=== PATIENT | female | born 1935 | race Caucasian/White ===

== ENCOUNTER 2020-02-23 13:33 | Emergency (ER) | payer MEDICARE, OTHER, SELFPAY ==
[2020-02-23 13:37] VITALS: BP 147/76; PULSE 83; RESP 16; TEMP 36.5; O2SAT 97; BMI 19.5
--- NOTE | 2020-02-23 13:42 | XRR_ITS ---
PROCEDURE INFORMATION: Exam: XR Right Foot Complete Exam date and time: 02/23/2020 1:43 PM Age: 85 years old Clinical indication: Foot; Right; Patient HX: C/O rle pain w/o injury TECHNIQUE: Imaging protocol: XR Right foot. Views: 3 or more views. COMPARISON: No relevant prior studies available. FINDINGS: Bones/joints: No acute fracture evident. Chronic hallux valgus deformity. Soft tissues: Normal. XR/XR foot RT min 3V* [id number] IMPRESSION: No acute findings.
--- NOTE | 2020-02-23 13:45 | XRR_ITS ---
PROCEDURE INFORMATION: Exam: XR Right Ankle Exam date and time: 02/23/2020 1:46 PM Age: 85 years old Clinical indication: Ankle; Right; Patient HX: C/O rle pain w/o injury TECHNIQUE: Imaging protocol: XR Right ankle. Views: 1 or 2 views. COMPARISON: No relevant prior studies available. FINDINGS: Bones/joints: Normal. No fracture evident. Soft tissues: Normal. XR/XR ankle RT 2V [id number] IMPRESSION: No acute findings.
--- NOTE | 2020-02-23 13:45 | XRR_ITS ---
PROCEDURE INFORMATION: Exam: XR Right Tibia and Fibula Exam date and time: 02/23/2020 1:46 PM Age: 85 years old Clinical indication: Lower leg; Right; Patient HX: C/O rle pain w/o injury TECHNIQUE: Imaging protocol: XR Right tibia and fibula. Views: 2 views. COMPARISON: No relevant prior studies available. FINDINGS: Bones/joints: Normal. No fracture evident. Soft tissues: Arterial wall calcifications, chronic. XR/XR tibia fibula RT 2V [id number] IMPRESSION: No acute findings.
[2020-02-23 13:46] VITALS: RESP 17
--- NOTE | 2020-02-23 13:53 | ED_ITS ---
HPI - Extremity Problem General: Chief complaint: Extremity Problem,Nontraumatic Stated complaint: foot pain Time Seen by Provider: 02/23/20 13:39 History of Present Illness: HPI Narrative: Ms. Miller is a nice 85-year-old female but is very hard of hearing. She comes in complaining of pain along the outside of her right leg and ankle. The pain is focal to this area. She does not remember a specific injury. She denies any other complaints. Review of Systems General: Reports: ROS unobtainable due to medical condition (Patient extremely hard of hearing) PFSH ED PFSH: Social History Smoking and tobacco status: never smoked Physical Exam Const: COMMON NORMALS: no apparent distress, oriented x3, no limitations, heal thy appearing and well nourished EXAM LIMITATIONS: no altered mental status GENERAL APPEARANCE: cooperative, well kempt and well developed ORIENTATION/CONSCIOUSNESS: Yes awake HENMT: COMMON NORMALS: normocephalic, head/scalp atraumatic, hearing grossly normal bilaterally, external ears normal, EAC's normal, external nose normal and moist oral mucous membranes HEAD & SCALP: normal to inspection, normocephalic and atraumatic FACE & SINUS: normal facial exam and face symmetric NOSE: external nose normal and nares normal EXTERNAL EAR: Yes external ears normal EXTERNAL AUDITORY CANAL: EAC's normal MOUTH: oral and palatal mucosa normal and tongue normal Eye: COMMON NORMALS: PERRL, EOMs intact bilaterally, conjunctivae normal and no scleral icterus GENERAL EYE: normal appearance of both eyes and normal light reflex CONJUNCTIVA: Yes conjunctivae normal SCLERA: sclerae normal CORNEA: Yes corneas normal PUPIL: Yes PERRL DIRECT OPHTHALMOSCOPY: Yes normal light reflex Neck/C-Spine: COMMON NORMALS: full ROM, no lymphadenopathy, supple, no meningeal signs and no JVD GENERAL: Yes normal visual inspection and Yes trachea midline CERVICAL SPINE: Yes cervical ROM normal Chest: COMMONS NORMALS: inspection of chest normal and palpation of chest normal Resp: COMMON NORMALS: normal respiratory effort, no retractions, no use of accessory muscles and clear to auscultation bilaterally EFFORT & INSPECTION: Yes able to speak in complete sentences AUSCULTATION: clear to auscultation bilaterally Cardio: COMMON NORMALS: no JVD, regular rate, regular rhythm, S1 normal heart sound, S2 normal heart sound, no gallops, no clicks, no murmurs and no rub JUGULAR VENOUS DISTENTION: no JVD RATE: regular rate RHYTHM: regular rhythm HEART SOUNDS: S1 normal and S2 normal GI: COMMON NORMALS: soft to palpation, non-tender, no hepatosplenomegaly and no masses INSPECTION: Yes normal to inspection PALPATION: Yes soft and Yes no hepatosplenomegaly : COMMON NORMALS: Yes no CVA tenderness BLADDER/KIDNEY EXAM: Yes no CVA tenderness Back/Pelvis: COMMON NORMALS: no CVA tenderness, thoracic and lumbar spine normal to inspection, no thoracic nor lumbar tenderness and thoraco-lumbar ROM normal Extremity: COMMON NORMALS: normal to inspection, full ROM, normal capillary refill, no joint enlargement, no clubbing, cyanosis or edema and no calf tenderness Neuro: COMMON NORMALS: oriented x3, CN's II-XII intact bilaterally, moves all extremities, no focal motor deficits and no sensory deficits noted MENINGEAL SIGNS: Yes no meningeal signs Psych: COMMON NORMALS: mental status grossly normal, thought process normal, cooperative, affect normal, speech normal and activity/motor behavior normal APPEARANCE: Yes well kempt SPEECH: Yes normal speech THOUGHT PROCESS: normal thought process Skin: COMMON NORMALS: no rashes or lesions noted, skin turgor normal, no jaundice, no petechiae and no mottling GENERAL SKIN EXAM: no rashes or lesions noted and turgor normal Course Vital Signs: Vital signs: Vital Signs Temperature 97.7 F 02/23/20 13:37 Pulse Rate 83 02/23/20 13:37 Respiratory Rate 17 02/23/20 13:46 Blood Pressure 147/76 02/23/20 13:37 Pulse Oximetry 97 02/23/20 13:37 MDM - Extremity (Nontraumatic) MDM Narrative: Medical decision making narrative: I contacted the patient's daughter Ana María Miller who understands that her ultrasounds are unremarkable and her x-rays are normal. She agrees to try to help her use the walker at home and will take the pain medicine as I have prescribed as needed. If her pain persists she understands she will to follow-up with the orthopedic doctor. At this time on exam the patient's pain is located all along the lateral aspect of her right ankle. There is no associated erythema, swelling, warmth to the touch or other sign of deep infectious etiology. There is no sign of cellulitis, necrotizing fasciitis, gout or other acute findings. At this time we will discharge the patient home to be weightbearing as tolerated with the pain medications as I as discussed with her daughter. The patient does relate that her ankle feels better at this time after pain medication. Imaging Data^: Xray Ortho: My impression: Right tib-fib, ankle, foot -no acute fractures. US Vascular: Radiologist's impression: Ultrasound venous Doppler right lower extremity - negative for DVT Ultrasound arterial Doppler right lower extremity -see formal report, biphasic flow down to lower leg then monophasic flow present. Discharge Plan Discharge Patient Disposition: Home, Self-Care Clinical Impression: Acute right ankle pain Condition: Stable Prescriptions: [place] 5-325 mg tablet 1 tab PO Q6H PRN (Reason: pain) 5 Days Qty: 20 RF: 0 No Action levothyroxine 137 mcg Tablet 137 mcg PO DAILY RF: 0 duloxetine 60 mg Capsule,Delayed Release(Dr/Ec) 60 mg PO DAILY RF: 0 Tylenol Arthritis Pain 650 mg Tablet Extended Release 1,300 mg PO PRN RF: 0 lorazepam 0.5 mg tablet 0.5 mg PO DAILY PRN (Reason: unknown) RF: 0 Calcium 500 500 mg calcium (1,250 mg) Tablet,Chewable 500 mg PO DAILY RF: 0 Discharge Orders: Discharge Order (Routine); Ordered 02/23/20 Ordered By: Iwona Tran Referrals: Ewa Paul MD [Physician] - 1-3 days Real Ambriz DO [Primary Care Provider] - Discharge Diet: Advance as tolerated Discharge Activity: Use walker/crutches as instructed Patient Instructions: Arthralgia (ED) Activity Restrictions/Additional Instructions: Please return to the ER immediately for any of the signs or symptoms listed on your discharge instruction sheets, worsening/changing of your symptoms, you are not getting better as quickly as expected, or for ANY other cause or concerns. Do not bear weight on your ankle if it causes pain but use your walker to help you get around in your home. Take the pain medication as I have prescribed. Return to the ER for increased pain or for any other cause for concern. Coding Level of Care Code ED Needle Board Repairer for Zeferino Fwcy Exam Comprehensive
--- NOTE | 2020-02-23 14:27 | USR_ITS ---
PROCEDURE INFORMATION: Exam: US Duplex Right Lower Extremity Veins, Limited Exam date and time: 02/23/2020 2:28 PM Age: 85 years old Clinical indication: Pain; Leg, lower; Right TECHNIQUE: Imaging protocol: Real-time Duplex ultrasound of the Right Lower Extremity with 2-D de leon scale, color Doppler flow and spectral waveform analysis with image documentation. Limited exam was focused on the right lower extremity veins. COMPARISON: No relevant prior studies available. FINDINGS: Right deep veins: Unremarkable. The common femoral, femoral, proximal profunda femoral and popliteal veins are patent without thrombus. Normal Doppler waveforms. Normal compressibility and/or augmentation response. Right superficial veins: Unremarkable. Saphenofemoral junction is patent without thrombus. Soft tissues: Unremarkable. US/[place] [id number] IMPRESSION: No acute findings. No evidence of deep vein thrombosis.
--- NOTE | 2020-02-23 14:29 | USR_ITS ---
PROCEDURE INFORMATION: Exam: US Duplex Right Lower Extremity Arteries Or Arterial Bypass Grafts Exam date and time: 02/23/2020 2:43 PM Age: 85 years old Clinical indication: Pain; Leg, lower; Right TECHNIQUE: Imaging protocol: Right Real-time duplex scan of the arteries or arterial bypass grafts of the right lower extremity with 2-D de leon scale, color Doppler flow and spectral waveform analysis. Images documented and saved. COMPARISON: CR (LOW EXM, ) 02/23/2020 1:52 PM FINDINGS: Right common femoral artery: Mild diffuse plaque. No occlusion or significant stenosis. Biphasic waveform. Right superficial femoral artery: Mild diffuse plaque. No occlusion or significant stenosis. Biphasic waveform. Right popliteal artery: Mild diffuse plaque. No occlusion or significant stenosis. Biphasic waveform. Right calf/foot arteries: Diffuse plaque. Patent posterior tibial artery with monophasic waveform. Dorsalis pedis artery is patent with monophasic waveform. Unable to obtain NATHANAEL's. Soft tissues: Unremarkable. US/[place] [id number] IMPRESSION: 1.) Patent femoral and popliteal arteries with diffuse plaque and biphasic waveforms. 2.) Patent posterior tibial and dorsalis pedis arteries with monophasic waveforms.
[2020-02-23] MEDS: HYDROcodone-acetaminophen 5-325 mg Tablet 1 TAB PO (14:38)
[2020-02-23 16:15] VITALS: BP 146/82; PULSE 77; RESP 16; O2SAT 98
== END 2020-02-23 16:15 | disposition home or self-care (01) ==
PROVIDERS: Emergency Provider Emergency Medicine; Family Provider Internal Medicine; PCP Internal Medicine
DX: M25.571 Pain in right ankle and joints of right foot (principal); M79.604 Pain in right leg
CPT/HCPCS: 12345; 73590; 73600; 73630; 93926; 93971; 99282; 99283

== ENCOUNTER 2021-10-14 18:22 | Emergency (ER) | payer MEDICARE, OTHER, SELFPAY ==
[2021-10-14 18:32] VITALS: BP 112/61; PULSE 67; RESP 18; TEMP 36.6; O2SAT 99; BMI 21.9
--- NOTE | 2021-10-14 18:38 | ED_ITS ---
Documented by User: Khris Yoder MD 10/27/21 19:46 HPI - Fall General: Chief Complaint: Fall Stated Complaint: Fall x 2 Time Seen by Provider: 10/14/21 18:38 History of Present Illness: HPI Narrative: Ms. Miller is an 86-year-old lady with history of Alzheimer's, scoliosis, and hypothyroidism who presents to the emergency department due to fall with altered mental status. Patient reportedly fell last night under somewhat unclear circumstances, likely tripped however patient does not recall event. She immediately had some pain in her back however that is progressed. She also notes abdominal discomfort and decreased p.o. intake. Her symptoms are worse with movement and deep inspiration however do not go with rest. She was recently treated for a urinary tract infection with amoxicillin however felt that those symptoms had improved and she completed a course of antibiotics. Intensity of discomfort associated with pain is moderate. Course has remained largely the same. Patient's family member at bedside does endorse that she seems more confused than typical and has had difficulty with balance. No other infectious symptoms, specific changes in health, known exacerbating or alleviating factors identified. Review of Systems General: Reports: 10 or more systems reviewed and unremarkable except in HPI and below PFSH ED PFSH: Medical History (Updated 10/24/21 @ 04:57 by Nathan Eason MD) C1 cervical fracture Dementia Hypertension Hypothyroidism No pertinent family history Surgical History No pertinent past surgical history Social History Smoking and tobacco status: never smoked Physical Exam Narrative: EXAM NARRATIVE: GENERAL/CONSTITUTIONAL - chronically ill-appearing. Frail Eyes - PERRL, no conjunctival injection ENMT - no guido signs or raccoon eyes. Atraumatic external nose and ears. NECK - supple. trachea midline CARDIOVASCULAR - regular rate and rhythm. Peripheral pulses 2+ and equal RESPIRATORY - clear to auscultation bilaterally. CHEST WALL - tenderness on the left side to lateral compression ABDOMEN/GI - tenderness palpation in the periumbilical region. No evidence of remote peritonitis MSK - tenderness palpation of T and L-spine extremities without obvious deformity or tenderness to palpation SKIN - Warm, Dry NEURO - alert and appropriately oriented. No focal neurologic deficits. Moves all extremities equally. PSYCH - impaired memory Course ED course: - Patient was seen and evaluated by me at bedside - Patient placed on cardiac monitors, IV access obtained - Initial evaluation notable for no focal neurologic deficits. Impaired memory and cognition. There is a skin tear without active hemorrhage to the left elbow region. - Labs notable for leukocytosis, anemia. Metabolic panel notable for likely dehydration with low sodium and low chloride, AGUSTÍN present. IV fluids given. - Urinalysis concerning for urinary tract infection 1g rocephin ordered - Imaging notable for C1 fracture. No other significant traumatic injuries or acute findings. Patient placed in c-collar. - Upon serial reexamination after treatment the patient was similar. She remained neurologically intact - Based on patient history, evaluation, labs, and imaging as interpreted the most likely cause of the patient's condition is C1 fracture secondary to fall, Urinary tract infection with AGUSTÍN and leukocytosis. - Due to presence of C1 fracture the patient requires neurosurgical and trauma consultation which is not available at our facility. - Patient will be accepted by Dr. Kennedy at [facility] in [place] for ER to ER transfer for trauma neurosurgical evaluation. Patient will likely need admission secondary to AGUSTÍN and UTI regardless of trauma evaluation - Subsequent to acceptance the accepting facility called back requesting that neurosurgery evaluate images prior to acceptance. - Patient care handed off to overnight ED physician Dr. Pate pending disposition Vital Signs: Vital signs: Vital Signs Temperature 98.8 F 10/15/21 02:14 Pulse Rate 78 10/15/21 02:14 Respiratory Rate 17 10/15/21 02:14 Blood Pressure 121/78 10/15/21 02:14 Pulse Oximetry 98 10/15/21 02:14 MDM - Fall Medical Records: Attestation: I reviewed the patient's medical records. Lab Data: Attestation: I reviewed the patient's lab results. Labs: Lab Results 10/14/21 10/14/21 10/14/21 19:30 19:30 19:30 WBC 13.2 10^3/uL H 10 ^3/uL (4.0-10.0) RBC 3.60 10^6/uL L 10 ^6/uL (4.1-5.3) Hgb 10.3 g/dL L g/dL (11.5-15.3) Hct 32.4 % L % (37.0-47.0) MCV 90.0 fl fl (81-99) MCH 28.6 pg pg (28.0-34.0) MCHC 31.8 g/dL g/dL (30.0-36.0) RDW 15.0 % % (12.1-15.1) Plt Count 329 10^3/cmm 10^3 /cmm (130-400) MPV 9.7 fL fL (7.4-10.4) Neut % (Auto) 87.7 % % Lymph % (Auto) 2.9 % % [place] % (Auto) 6.4 % % Eos % (Auto) 1.4 % % Baso % (Auto) 0.3 % % Neut # (Auto) 11.60 10^3/uL H 1 0^3/uL (1.8-7.7) Lymph # (Auto) 0.4 10^3/uL L 10^ 3/uL (0.8-4.8) [place] # (Auto) 0.8 10^3/uL 10^3/ uL (0.2-0.9) Eos # (Auto) 0.2 10^3/uL 10^3/ uL (0.0-0.8) Baso # (Auto) 0.0 10^3/uL 10^3/ uL (0.0-0.1) Nucleated RBC % (a uto) 0 % % Nucleated RBCs # 0.0 /100WBC /100W BC Sodium 128 mmol/L L mmol /L (136-145) Potassium 4.0 mmol/L mmol/L (3.5-5.1) Chloride 92 mmol/L L mmol/ L (98-107) Carbon Dioxide 20 mmol/L L mmol/ L (22-29) Anion Gap 20.0 H (5-19) BUN 39 mg/dL H mg/dL (8-23) Creatinine 1.6 mg/dL H mg/dL (0.5-0.9) GFR Calculation Not Reportable Glucose 116 mg/dL H mg/dL (65-115) Calculated Osmolal ity 276 mOsm/kg L mOs m/kg (285-295) Calcium 8.2 mg/dL L mg/dL (8.5-10.5) Total Bilirubin 0.5 mg/dL mg/dL (0.15-1.2) AST 17 U/L U/L (0-32) ALT 10 U/L U/L (0-33) Alkaline Phosphata se 175 IU/L H IU/L (35-105) Total Protein 6.4 g/dL L g/dL (6.6-8.7) Albumin 3.3 g/dL L g/dL (3.5-5.2) Globulin 3.1 g/dL g/dL (1.3-4.6) TSH 7.47 uIU/mL H uIU /mL (0.27-4.20) Free T4 1.02 ng/dL ng/dL (0.82-1.77) Urine Color Urine Appearance Urine pH Ur Specific Gravit y Urine Protein Urine Glucose (UA) Urine Ketones Urine Blood Urine Nitrate Urine Bilirubin Urine Urobilinogen Ur Leukocyte Alesha ase Urine RBC Urine WBC Ur Squamous Epith Cells Amorphous Sediment Urine Bacteria 10/14/21 20:30 WBC RBC Hgb Hct MCV MCH MCHC RDW Plt Count MPV Neut % (Auto) Lymph % (Auto) [place] % (Auto) Eos % (Auto) Baso % (Auto) Neut # (Auto) Lymph # (Auto) [place] # (Auto) Eos # (Auto) Baso # (Auto) Nucleated RBC % (a uto) Nucleated RBCs # Sodium Potassium Chloride Carbon Dioxide Anion Gap BUN Creatinine GFR Calculation Glucose Calculated Osmolal ity Calcium Total Bilirubin AST ALT Alkaline Phosphata se Total Protein Albumin Globulin TSH Free T4 Urine Color Yellow (Yellow) Urine Appearance Hazy A (CLEAR) Urine pH 5 (5-7) Ur Specific Gravit y 1.025 (1.005-1.030) Urine Protein 1+ H (Negative) Urine Glucose (UA) Norm (Normal) Urine Ketones Negative (Negative) Urine Blood 3+ H (Negative) Urine Nitrate Negative (Negative) Urine Bilirubin 1+ H (Negative) Urine Urobilinogen 1 mg/dL H mg/dL (Negative) Ur Leukocyte Alesha ase 2+ H (Negative) Urine RBC Too numerous to c nt /hpf H /hpf (0-2) Urine WBC Too numerous to c nt /hpf H /hpf (0-5) Ur Squamous Epith Cells 0-4 /hpf H /hpf (0-5) Amorphous Sediment Not Reportable Urine Bacteria 3+ /hpf H /hpf (NONE) EKG Data^: EKG 1: Attestation: I personally reviewed and interpreted this EKG as follows: EKG interpretation date: 10/14/21 EKG interpretation time: 19:31 Interpretation: Twelve-lead EKG shows an irregular rhythm at a rate of 85. [place] interval 183, QRS duration 98, QTc 410. Normal axis. Interpretation: Sinus rhythm. Occasional PVCs. Discharge Plan Discharge Patient Disposition: Transfer to ED Clinical Impression: Fall, C1 cervical fracture, Acute UTI, AGUSTÍN (acute kidney injury), Leukocytosis Condition: Stable Prescriptions: No Action aspirin 325 mg Tablet 325 mg PO PRN RF: 0 acetaminophen 500 mg Tablet 500 - 1,000 mg PO Q4H PRN (Reason: Pain) RF: 0 levothyroxine 137 mcg Tablet 137 mcg PO DAILY Qty: 30 RF: 0 Referrals: Real Ambriz DO [Primary Care Provider] - Coding Level of Care Code ED Systems Test Technician for Chg Fwd Documented by User: Arlene Pate MD 10/15/21 01:37 HPI - Fall General: Chief Complaint: Fall Stated Complaint: Fall x 2 Time Seen by Provider: 10/14/21 18:38 PFSH ED PFSH: Medical History (Updated 10/24/21 @ 04:57 by Nathan Eason MD) C1 cervical fracture Dementia Hypertension Hypothyroidism No pertinent family history Surgical History No pertinent past surgical history Social History Smoking and tobacco status: never smoked Course Vital Signs: Vital signs: Vital Signs Temperature 98.8 F 10/15/21 02:14 Pulse Rate 78 10/15/21 02:14 Respiratory Rate 17 10/15/21 02:14 Blood Pressure 121/78 10/15/21 02:14 Pulse Oximetry 98 10/15/21 02:14 MDM - Fall MDM Narrative: Medical decision making narrative: Patient presents here with C1 fracture after a fall took patient over from Dr. Roa she also has some dehydration with acute kidney injury. Lab Data: Labs: Lab Results 10/14/21 10/14/21 10/14/21 19:30 19:30 19:30 WBC 13.2 10^3/uL H 10 ^3/uL (4.0-10.0) RBC 3.60 10^6/uL L 10 ^6/uL (4.1-5.3) Hgb 10.3 g/dL L g/dL (11.5-15.3) Hct 32.4 % L % (37.0-47.0) MCV 90.0 fl fl (81-99) MCH 28.6 pg pg (28.0-34.0) MCHC 31.8 g/dL g/dL (30.0-36.0) RDW 15.0 % % (12.1-15.1) Plt Count 329 10^3/cmm 10^3 /cmm (130-400) MPV 9.7 fL fL (7.4-10.4) Neut % (Auto) 87.7 % % Lymph % (Auto) 2.9 % % [place] % (Auto) 6.4 % % Eos % (Auto) 1.4 % % Baso % (Auto) 0.3 % % Neut # (Auto) 11.60 10^3/uL H 1 0^3/uL (1.8-7.7) Lymph # (Auto) 0.4 10^3/uL L 10^ 3/uL (0.8-4.8) [place] # (Auto) 0.8 10^3/uL 10^3/ uL (0.2-0.9) Eos # (Auto) 0.2 10^3/uL 10^3/ uL (0.0-0.8) Baso # (Auto) 0.0 10^3/uL 10^3/ uL (0.0-0.1) Nucleated RBC % (a uto) 0 % % Nucleated RBCs # 0.0 /100WBC /100W BC Sodium 128 mmol/L L mmol /L (136-145) Potassium 4.0 mmol/L mmol/L (3.5-5.1) Chloride 92 mmol/L L mmol/ L (98-107) Carbon Dioxide 20 mmol/L L mmol/ L (22-29) Anion Gap 20.0 H (5-19) BUN 39 mg/dL H mg/dL (8-23) Creatinine 1.6 mg/dL H mg/dL (0.5-0.9) GFR Calculation Not Reportable Glucose 116 mg/dL H mg/dL (65-115) Calculated Osmolal ity 276 mOsm/kg L mOs m/kg (285-295) Calcium 8.2 mg/dL L mg/dL (8.5-10.5) Total Bilirubin 0.5 mg/dL mg/dL (0.15-1.2) AST 17 U/L U/L (0-32) ALT 10 U/L U/L (0-33) Alkaline Phosphata se 175 IU/L H IU/L (35-105) Total Protein 6.4 g/dL L g/dL (6.6-8.7) Albumin 3.3 g/dL L g/dL (3.5-5.2) Globulin 3.1 g/dL g/dL (1.3-4.6) TSH 7.47 uIU/mL H uIU /mL (0.27-4.20) Free T4 1.02 ng/dL ng/dL (0.82-1.77) Urine Color Urine Appearance Urine pH Ur Specific Gravit y Urine Protein Urine Glucose (UA) Urine Ketones Urine Blood Urine Nitrate Urine Bilirubin Urine Urobilinogen Ur Leukocyte Alesha ase Urine RBC Urine WBC Ur Squamous Epith Cells Amorphous Sediment Urine Bacteria 10/14/21 20:30 WBC RBC Hgb Hct MCV MCH MCHC RDW Plt Count MPV Neut % (Auto) Lymph % (Auto) [place] % (Auto) Eos % (Auto) Baso % (Auto) Neut # (Auto) Lymph # (Auto) [place] # (Auto) Eos # (Auto) Baso # (Auto) Nucleated RBC % (a uto) Nucleated RBCs # Sodium Potassium Chloride Carbon Dioxide Anion Gap BUN Creatinine GFR Calculation Glucose Calculated Osmolal ity Calcium Total Bilirubin AST ALT Alkaline Phosphata se Total Protein Albumin Globulin TSH Free T4 Urine Color Yellow (Yellow) Urine Appearance Hazy A (CLEAR) Urine pH 5 (5-7) Ur Specific Gravit y 1.025 (1.005-1.030) Urine Protein 1+ H (Negative) Urine Glucose (UA) Norm (Normal) Urine Ketones Negative (Negative) Urine Blood 3+ H (Negative) Urine Nitrate Negative (Negative) Urine Bilirubin 1+ H (Negative) Urine Urobilinogen 1 mg/dL H mg/dL (Negative) Ur Leukocyte Alesha ase 2+ H (Negative) Urine RBC Too numerous to c nt /hpf H /hpf (0-2) Urine WBC Too numerous to c nt /hpf H /hpf (0-5) Ur Squamous Epith Cells 0-4 /hpf H /hpf (0-5) Amorphous Sediment Not Reportable Urine Bacteria 3+ /hpf H /hpf (NONE) Discharge Plan Discharge Patient Disposition: Transfer to ED Clinical Impression: Fall, C1 cervical fracture, Acute UTI, AGUSTÍN (acute kidney injury), Leukocytosis Condition: Stable Prescriptions: No Action aspirin 325 mg Tablet 325 mg PO PRN RF: 0 acetaminophen 500 mg Tablet 500 - 1,000 mg PO Q4H PRN (Reason: Pain) RF: 0 levothyroxine 137 mcg Tablet 137 mcg PO DAILY Qty: 30 RF: 0 Referrals: Real Ambriz DO [Primary Care Provider] - Coding Level of Care Code ED Systems Test Technician for Zeferino Isidro
--- NOTE | 2021-10-14 18:46 | CTR_ITS ---
PROCEDURE INFORMATION: Exam: CT Chest With Contrast; Diagnostic Exam date and time: 10/14/2021 6:46 PM Age: 86 years old Clinical indication: Abdominal pain; Chest wall pain; Additional info: Fall, AMS, back and rib pain, abdominal pain unable to eat TECHNIQUE: Imaging protocol: Diagnostic computed tomography of the chest with contrast. Radiation optimization: All CT scans at this facility use at least one of these dose optimization techniques: automated exposure control; mA and/or kV adjustment per patient size (includes targeted exams where dose is matched to clinical indication); or iterative reconstruction. Contrast material: VISI; Contrast volume: 75 ml; Contrast route: INTRAVENOUS (IV); COMPARISON: CT abdomen pelvis w con* [id number] 04/25/2019 7:45 PM RADIATION DOSE METRICS: Total DLP (mGy-cm): 988.87 FINDINGS: Lungs: Bilateral apical pulmonary plaque like scarring. No focal pulmonary injury. No focal pulmonary consolidation. Pleural spaces: Unremarkable. No pneumothorax. No pleural effusion. Heart: Unremarkable. No cardiomegaly. No pericardial effusion. Aorta: Large volume diffuse calcified atherosclerotic wall plaques throughout thoracic aorta. No injury. No dissection. No aneurysm. Lymph nodes: Unremarkable. No enlarged lymph nodes. Bones/joints: Partially visible surgical hardware fixating the proximal left humerus. No acute thoracic spine fractures. Redemonstration of T12, L1, L2 level vertebral compression fractures. No rib fractures. Sternum intact. Soft tissues: Unremarkable. PROCEDURE INFORMATION: Exam: CT Abdomen And Pelvis With Contrast Exam date and time: 10/14/2021 6:46 PM Age: 86 years old Clinical indication: Abdominal pain; Chest wall pain; Additional info: Fall, AMS, back and rib pain, abdominal pain unable to eat TECHNIQUE: Imaging protocol: Computed tomography of the abdomen and pelvis with contrast. Radiation optimization: All CT scans at this facility use at least one of these dose optimization techniques: automated exposure control; mA and/or kV adjustment per patient size (includes targeted exams where dose is matched to clinical indication); or iterative reconstruction. Contrast material: VISI; Contrast volume: 75 ml; Contrast route: INTRAVENOUS (IV); COMPARISON: CT abdomen pelvis w con* [id number] 04/25/2019 7:45 PM RADIATION DOSE METRICS: Total DLP (mGy-cm): 988.87 FINDINGS: Liver: Normal. No mass. Gallbladder and bile ducts: Dilated common bile duct measuring up to 9 mm distally. Slightly more prominent than prior. No significant intrahepatic biliary duct dilation. Pancreas: Atrophic pancreas. No focal pancreatic mass. The central area of the main pancreatic duct is dilated up to 7 mm. Previously 4-5 mm. Spleen: Normal. No splenomegaly. Adrenal glands: Normal. No mass. Kidneys and ureters: Normal. No hydronephrosis. Stomach and bowel: Unremarkable. No obstruction. No mucosal thickening. Appendix: Normal appendix. Intraperitoneal space: Unremarkable. No free air. No significant fluid collection. Vasculature: Diffuse atherosclerosis. Negative for abdominal aortic aneurysm. No vascular injury. No acute vascular occlusion. Patent stent in the origin of the right renal artery. Lymph nodes: Unremarkable. No enlarged lymph nodes. Urinary bladder: Unremarkable as visualized. Reproductive: Unremarkable as visualized. Bones/joints: Bones are demineralized. Redemonstration of prior compression fractures at T12, L1, L2 with no significant change in height loss from prior. Severe rightward convex mid lumbar spine scoliosis is unchanged from prior. No definite acute pelvic fractures. Pelvic ring alignment is unremarkable. Areas of cortical irregularity in small lucency are noted in the medial aspects of the bilateral superior pubic rami of uncertain chronicity and significance without displacement. Difficult to fully exclude subtle fractures. Soft tissues: Unremarkable. CT/CT chest abd pel w con* IMPRESSION: Negative for acute thoracic injury. IMPRESSION: Negative for acute abdominopelvic abnormality.
--- NOTE | 2021-10-14 18:46 | CTR_ITS ---
PROCEDURE INFORMATION: Exam: CT Head Without Contrast Exam date and time: 10/14/2021 6:46 PM Age: 86 years old Clinical indication: Injury or trauma; Fall; Blunt trauma (contusions or hematomas); Altered mental status/memory loss; Additional info: Fall, AMS TECHNIQUE: Imaging protocol: Computed tomography of the head without contrast. Radiation optimization: All CT scans at this facility use at least one of these dose optimization techniques: automated exposure control; mA and/or kV adjustment per patient size (includes targeted exams where dose is matched to clinical indication); or iterative reconstruction. COMPARISON: CT head wo con* [id number] 07/18/2019 8:44 AM RADIATION DOSE METRICS: Total DLP (mGy-cm): 842.57 FINDINGS: Brain: There is moderate cerebral atrophy. There is moderate diffuse heterogeneity of the white matter attenuation, consistent with chronic white matter ischemic changes. Negative for intracranial hemorrhage. Lam matter and white matter interfaces are preserved. No midline shift of the brain. Cerebral ventricles: No ventriculomegaly. Paranasal sinuses: Visualized sinuses are unremarkable. No fluid levels. Mastoid air cells: Visualized mastoid air cells are well aerated. Orbital cavity: Symmetric, unremarkable orbits. Vasculature: Intracranial atherosclerosis. Bones/joints: Unremarkable. No acute fracture. Soft tissues: Unremarkable. CT/CT head wo con* [id number] IMPRESSION: Negative for acute intracranial abnormality.
--- NOTE | 2021-10-14 18:46 | CTR_ITS ---
PROCEDURE INFORMATION: Exam: CT Cervical Spine Without Contrast Exam date and time: 10/14/2021 6:46 PM Age: 86 years old Clinical indication: Injury or trauma; Fall; Blunt trauma; Additional info: Fall, AMS TECHNIQUE: Imaging protocol: Computed tomography images of the cervical spine without contrast. Radiation optimization: All CT scans at this facility use at least one of these dose optimization techniques: automated exposure control; mA and/or kV adjustment per patient size (includes targeted exams where dose is matched to clinical indication); or iterative reconstruction. COMPARISON: [facility] Cervical Spine 2-3 views 04/24/2018 3:52 PM RADIATION DOSE METRICS: Total DLP (mGy-cm): 373.27 FINDINGS: Vertebrae: C1 arch fractures are present. There is a mildly displaced fracture in the anterior arch in the midline which extends slightly to the right. There is a 2nd fracture in the posterior arch of the right lateral aspect posterior to the right pedicle. Atlantoaxial alignment is unremarkable. Atlanto dens interval is unremarkable. Atlantooccipital joints have normal alignment. Mild C5-C6 retrolisthesis. The cervical spine demonstrates marked degenerative changes at multiple levels. Soft tissues: Unremarkable. Vasculature: There is large amount of calcified plaque in the bilateral carotid artery bulb regions. Lungs: Bilateral pulmonary apical plaques/scarring. CT/CT cervical spin wo con* [id number] IMPRESSION: Anterior and posterior arch fractures of C1 vertebrae.
--- NOTE | 2021-10-14 18:47 | XRR_ITS ---
PROCEDURE INFORMATION: Exam: XR Left Elbow Exam date and time: 10/14/2021 6:47 PM Age: 86 years old Clinical indication: Pain; Elbow; Left; Additional info: Fall, pain TECHNIQUE: Imaging protocol: XR Left elbow. Views: 1 or 2 views. COMPARISON: No relevant prior studies available. FINDINGS: Bones/joints: Minimal distal triceps tendon degenerative calcification. Soft tissues: Normal. XR/XR elbow LT 2V [id number] IMPRESSION: Negative for fracture or dislocation
--- NOTE | 2021-10-14 18:47 | ECG_ITS ---
[facility] Test Date: 2021-10-14 Pat Name: Adelaide Miller Department: Room: Gender: Female [employer] Assistant: : 1935 Requested By: Khris Yoder Order Number: [id number] Chang MD: Linda Chappell M.D. Measurements Intervals [place] Rate: 85 P: 59 NE: 183 QRS: 57 QRSD: 98 T: 65 QT: 368 QTc: 439 Interpretive Statements SINUS RHYTHM WITH FREQUENT ECTOPIC PREMATURE COMPLEXES INCOMPLETE RIGHT BUNDLE BRANCH BLOCK [90+ ms QRS DURATION, TERMINAL R IN V1/V2, 40+ ms S IN I/aVL/V4/V5/V6] Possible left atrial ABNORMAL RHYTHM ECG Compared to ECG 07/18/2019 08:31:01 Incomplete right bundle-branch block now present First degree AV block no longer present T-wave abnormality no longer present Electronically Signed On 10-14-2021 22:15:43 TRACK MANAGER by Linda Chappell M.D. [id number]
--- NOTE | 2021-10-14 18:48 | XRR_ITS ---
PROCEDURE INFORMATION: Exam: XR Left Shoulder Exam date and time: 10/14/2021 6:48 PM Age: 86 years old Clinical indication: Pain; Left; Prior surgery; Surgery date: 6+ months; Surgery type: Lt shoulder; Additional info: Fall, pain TECHNIQUE: Imaging protocol: XR Left shoulder. Views: 2 or more views. COMPARISON: CR XR chest 2V* [id number] 09/02/2021 12:58 PM FINDINGS: Bones/joints: Proximal humeral orthopedic plate seen in place. Soft tissues: Normal. XR/XR shoulder LT min 2V* [id number] IMPRESSION: Negative for fracture or dislocation.
[2021-10-14 19:08] VITALS: RESP 20; O2SAT 94
[2021-10-14] MEDS: morphine 4 mg/mL SDV 1 mL 2 MG IVP (19:08)
[2021-10-14 20:02] VITALS: BP 115/53; PULSE 75; RESP 18; TEMP 36.7; O2SAT 97
[2021-10-14 20:15] LABS: Basophils % 0.3 %; Eosinophils # 0.2 10^3/uL (0.0-0.8); Eosinophils % 1.4 %; Hematocrit 32.4 % (37.0-47.0); Hemoglobin 10.3 g/dL (11.5-15.3); Lymphocytes # 0.4 10^3/uL (0.8-4.8); Lymphocytes % 2.9 %; Mean Corpuscular HGB Conc 31.8 g/dL (30.0-36.0); Mean Corpuscular Hemoglobin 28.6 pg (28.0-34.0); Mean Platelet Volume 9.7 fL (7.4-10.4); Monocytes # 0.8 10^3/uL (0.2-0.9); Monocytes % 6.4 %; Neutrophils % 87.7 %; Nucleated Red Blood Cells % 0 %; Platelet Count 329 10^3/cmm (130-400); White Blood Count 13.2 10^3/uL (4.0-10.0)
[2021-10-14 20:50] LABS: Blood Urine 3+ (Negative); Glucose Urine UA Norm (Normal); Ketones Urine Negative (Negative); Protein Urine 1+ (Negative); Specific Gravity, Urine 1.025 (1.005-1.030); Urine Appearance Hazy (CLEAR); Urine Color Yellow (Yellow); pH Urine 5 (5-7)
[2021-10-14 20:51] LABS: Add Urine Microscopic? YES; Bilirubin Urine 1+ (Negative); Leukocyte Esterase Urine 2+ (Negative); Nitrate Urine Negative (Negative); Urobilinogen Urine 1 mg/dL (Negative)
[2021-10-14 20:52] LABS: Add Urine Culture? Yes; Bacteria Urine 3+ /hpf; RBC Urine TOO NUMEROUS TO CNT /hpf (0-2); Squamous Epithelial Cell Urine 0-4 /hpf (0-5); WBC Urine TOO NUMEROUS TO CNT /hpf (0-5)
[2021-10-14 21:07] LABS: Alanine Aminotransferase 10 U/L (0-33); Albumin Level 3.3 g/dL (3.5-5.2); Alkaline Phosphatase 175 IU/L (35-105); Aspartate Amino Transferase 17 U/L (0-32); Blood Urea Nitrogen 39 mg/dL (8-23); Calcium 8.2 mg/dL (8.5-10.5); Carbon Dioxide 20 mmol/L (22-29); Chloride 92 mmol/L (98-107); Globulin 3.1 g/dL (1.3-4.6); Glucose 116 mg/dL (65-115); Osmolality Calculated 276 mOsm/kg (285-295); Sodium 128 mmol/L (136-145); Thyroid Stimulating Hormone 7.47 uIU/mL (0.27-4.20); Total Bilirubin 0.5 mg/dL (0.15-1.2); Total Protein 6.4 g/dL (6.6-8.7)
[2021-10-14] MEDS: iodixanol 320 mg/mL 100mL Btl IV (21:34)
[2021-10-14 22:00] VITALS: BP 120/58; PULSE 73; RESP 16
[2021-10-14 22:11] LABS: Free T4 Free Thyroxine 1.02 ng/dL (0.82-1.77)
--- NOTE | 2021-10-14 22:40 | PC.NURSE ---
Mayda with [facility], called and asked that transfer be put on hold for now. they will be consulting Neuro surgery and have them contact the ED physician here for further. Dr Yoder was notified.
[2021-10-14] MEDS: sodium chloride 0.9% 1,000 ML 500 ML IV (23:12)
[2021-10-14] MEDS: cefTRIAXone 1,000 MG in sodium chloride 0.9% (plus) 50 ML 100 MG IV (23:13)
[2021-10-15 00:57] VITALS: BP 122/68; PULSE 79; RESP 19; TEMP 37.1; O2SAT 98
[2021-10-15 01:38] VITALS: RESP 17
[2021-10-15] MEDS: morphine 4 mg/mL SDV 1 mL IVP (01:38)
[2021-10-15 02:14] VITALS: BP 121/78; PULSE 78; RESP 17; TEMP 37.1; O2SAT 98
== END 2021-10-15 01:50 ==
PROVIDERS: Emergency Medicine; Emergency Provider Emergency Medicine; PCP Internal Medicine
DX: N39.0 Urinary tract infection, site not specified (principal); N17.9 Acute kidney failure, unspecified; D72.829 Elevated white blood cell count, unspecified; S12.000A Unspecified displaced fracture of first cervical vertebra, initial encounter for closed fracture; I10 Essential (primary) hypertension; G30.9 Alzheimer's disease, unspecified; F02.80 Dementia in other diseases classified elsewhere, unspecified severity, without behavioral disturbance, psychotic disturbance, mood disturbance, and anxiety; W19.XXXA Unspecified fall, initial encounter
CPT/HCPCS: 70450; 71260; 72125; 73030; 73070; 74177; 80053; 81001; 84439; 84443; 85025; 87040; 87077; 87086; 87186; 87205; 93005; 96361; 96365; 96375; 96376; 99285; J0696; J2270; J7030; Q9967

== ENCOUNTER 2021-10-23 20:58 | Inpatient (IN) | payer MEDICARE, OTHER, SELFPAY ==
[2021-10-23 21:18] VITALS: BP 174/78; PULSE 91; RESP 16; TEMP 37.2; O2SAT 97
--- NOTE | 2021-10-23 21:36 | ED_ITS ---
Documented by User: DENNISE Irby 10/24/21 01:19 HPI - Altered Mental Status General: Chief Complaint: Altered Mental Status Stated Complaint: Hallucinating Time Seen by Provider: 10/23/21 21:24 Source: family (daughter) Mode of arrival: wheelchair Limitations: no limitations History of Present Illness: HPI narrative: Patient is an 86-year-old female with a history of Alzheimer's, hypothyroidism, scoliosis presents to ED today along with her daughter for concerns of altered mental status. Daughter states her altered mental status initially began 2 weeks ago when she was seen here at our facility. She apparently had had a fall at that time to and was diagnosed with a C1 cervical fracture and was transferred to [place] (daughter belie ves she was also diagnosed with a UTI). Daughter states while there they stated her C1 fracture was chronic. She is not sure if they addressed the UTI while she was hospitalized. Daughter states they followed up with PCP at [facility] and was placed on Levaquin on Tuesday. Daughter states over the past 24 to 48 hours patient has become even more so confused. She no longer knows her own name. She does not recognize the daughter. She is actively hallucinating stating that she is hearing deaths of several individuals on the television. She is seeing panthers. Daughter states her mother has never been like this previously. Her Alzheimer's previously has presented with minor memory impairments. She has no previous history of hallucinations or psychosis. complaint: altered mental status Review of Systems General: Reports: ROS unobtainable due to mental status [facility] ED PFSH: Medical History (Updated 10/24/21 @ 04:57 by Nathan Eason MD) C1 cervical fracture Dementia Hypertension Hypothyroidism No pertinent family history Surgical History No pertinent past surgical history Social History Smoking and tobacco status: never smoked Physical Exam Const: COMMON NORMALS: alert EXAM LIMITATIONS: altered mental status GENERAL APPEARANCE: cooperative ORIENTATION/CONSCIOUSNESS: Yes awake and Yes confused HENMT: COMMON NORMALS: normocephalic and atraumatic HEAD & SCALP: normocephalic and atraumatic Resp: COMMON NORMALS: normal respiratory effort and clear to auscultation bilaterally AUSCULTATION: clear to auscultation bilaterally Cardio: COMMON NORMALS: regular rate and regular rhythm RATE: regular rate RHYTHM: regular rhythm GI: COMMON NORMALS: Normal to inspection, nondistended, normoactive bowel sounds present, Soft to palpation, non-tender, No hepatosplenomegaly present and no masses INSPECTION: Yes normal to inspection PALPATION: Yes Soft to palpation and Yes No hepatosplenomegaly present Extremity: COMMON NORMALS: normal to inspection Neuro: GEMA COMA SCALE: document GCS findings Bicknell coma scale eye opening: Spontaneous Gema coma scale verbal response: Confused Bicknell coma scale motor response: Obey commands Gema coma scale total score: 14 SENSORIUM/ORIENTATION: Yes alert Skin: COMMON NORMALS: no rashes or lesions noted GENERAL SKIN EXAM: no rashes or lesions noted Course Consultations: Consultation #1: Dr. Eason-accepts pt to obs Vital Signs: Vital signs: Vital Signs Temperature 99.2 F 10/24/21 19:37 Pulse Rate 62 10/24/21 19:37 Respiratory Rate 22 H 10/24/21 19:37 Blood Pressure 160/58 10/24/21 19:37 Pulse Oximetry 95 10/24/21 19:37 MDM - Altered Mental Status MDM Narrative: Medical decision making narrative: Patient is extremely altered on physical examination. She does not even know her own name. She does not recognize her daughter in the room. She is actively seeing things on her room curtain. Vital signs are non-concerning. Labs are overall fairly unremarkable. Potassium of 3.3. Creatinine of 1.4. Interestingly enough her TSH is 48. It was roughly 7 a few days ago when she was seen here prior to transfer. Daughter does not feel she can care for her mother at home as she is actively hallucinating and trying to elope from the residents. In addition she states she has not been eating or drinking or caring for herself-again very abnormal for her. AMS could be secondary to thyroid dysfunction, worsening Alzheimer's, levaquin use, UTI. Spoke to Dr. Knowles who recommends hospitalization. Spoke to Dr. Eason who will admit. Lab Data: Labs: Lab Results 10/23/21 10/23/21 10/23/21 22:00 22:00 22:00 WBC 11.9 10^3/uL H 10 ^3/uL (4.0-10.0) RBC 3.65 10^6/uL L 10 ^6/uL (4.1-5.3) Hgb 10.3 g/dL L g/dL (11.5-15.3) Hct 32.4 % L % (37.0-47.0) MCV 88.8 fl fl (81-99) MCH 28.2 pg pg (28.0-34.0) MCHC 31.8 g/dL g/dL (30.0-36.0) RDW 15.7 % H % (12.1-15.1) Plt Count 491 10^3/cmm H 10 ^3/cmm (130-400) MPV 8.9 fL fL (7.4-10.4) Neut % (Auto) 79.8 % % Lymph % (Auto) 7.1 % % Cecil % (Auto) 7.3 % % Eos % (Auto) 0.5 % % Baso % (Auto) 0.4 % % Neut # (Auto) 9.46 10^3/uL H 10 ^3/uL (1.8-7.7) Lymph # (Auto) 0.8 10^3/uL 10^3/ uL (0.8-4.8) Cecil # (Auto) 0.9 10^3/uL 10^3/ uL (0.2-0.9) Eos # (Auto) 0.1 10^3/uL 10^3/ uL (0.0-0.8) Baso # (Auto) 0.1 10^3/uL 10^3/ uL (0.0-0.1) Nucleated RBC % (a uto) 0 % % Nucleated RBCs # 0.0 /100WBC /100W BC Sodium 139 mmol/L mmol/L (136-145) Potassium 3.3 mmol/L L mmol /L (3.5-5.1) Chloride 101 mmol/L mmol/L (98-107) Carbon Dioxide 24 mmol/L mmol/L (22-29) Anion Gap 17.3 (5-19) BUN 23 mg/dL mg/dL (8-23) Creatinine 1.4 mg/dL H mg/dL (0.5-0.9) GFR Calculation Not Reportable Glucose 108 mg/dL mg/dL (65-115) Calculated Osmolal ity 292 mOsm/kg mOsm/ kg (285-295) Lactic Acid 1.4 mmol/L mmol/L (0.5-2.2) Calcium 8.1 mg/dL L mg/dL (8.5-10.5) Total Bilirubin 0.3 mg/dL mg/dL (0.15-1.2) AST 18 U/L U/L (0-32) ALT 12 U/L U/L (0-33) Alkaline Phosphata se 156 IU/L H IU/L (35-105) Total Protein 6.7 g/dL g/dL (6.6-8.7) Albumin 3.3 g/dL L g/dL (3.5-5.2) Globulin 3.4 g/dL g/dL (1.3-4.6) Procalcitonin TSH Free T4 Free T3 Urine Color Urine Appearance Urine pH Ur Specific Gravit y Urine Protein Urine Glucose (UA) Urine Ketones Urine Blood Urine Nitrate Urine Bilirubin Urine Urobilinogen Ur Leukocyte Alesha ase Urine RBC Urine WBC Ur Squamous Epith Cells Amorphous Sediment Urine Bacteria Hyaline Casts 10/23/21 10/23/21 10/23/21 22:00 22:00 22:35 WBC RBC Hgb Hct MCV MCH MCHC RDW Plt Count MPV Neut % (Auto) Lymph % (Auto) Cecil % (Auto) Eos % (Auto) Baso % (Auto) Neut # (Auto) Lymph # (Auto) Cecil # (Auto) Eos # (Auto) Baso # (Auto) Nucleated RBC % (a uto) Nucleated RBCs # Sodium Potassium Chloride Carbon Dioxide Anion Gap BUN Creatinine GFR Calculation Glucose Calculated Osmolal ity Lactic Acid Calcium Total Bilirubin AST ALT Alkaline Phosphata se Total Protein Albumin Globulin Procalcitonin TSH 48.20 uIU/mL H uI U/mL (0.27-4.20) Free T4 0.76 ng/dL L ng/d L (0.82-1.77) Free T3 0.7 PG/ML L PG/ML (2.0-4.4) Urine Color Yellow (Yellow) Urine Appearance Clear (CLEAR) Urine pH 6 (5-7) Ur Specific Gravit y 1.010 (1.005-1.030) Urine Protein Neg (Negative) Urine Glucose (UA) Norm (Normal) Urine Ketones 1+ H (Negative) Urine Blood 2+ H (Negative) Urine Nitrate Negative (Negative) Urine Bilirubin Neg (Negative) Urine Urobilinogen Norm mg/dL mg/dL (Negative) Ur Leukocyte Alesha ase Negative (Negative) Urine RBC 10-15 /hpf H /hpf (0-2) Urine WBC 15-25 /hpf H /hpf (0-5) Ur Squamous Epith Cells 0-4 /hpf H /hpf (0-5) Amorphous Sediment Not Reportable Urine Bacteria Trace /hpf /hpf (NONE) Hyaline Casts 0-4 /lpf H /lpf 10/24/21 10/24/21 06:34 06:34 WBC 10.0 10^3/uL 10^3 /uL (4.0-10.0) RBC 3.37 10^6/uL L 10 ^6/uL (4.1-5.3) Hgb 9.4 g/dL L g/dL (11.5-15.3) Hct 30.1 % L % (37.0-47.0) MCV 89.3 fl fl (81-99) MCH 27.9 pg L pg (28.0-34.0) MCHC 31.2 g/dL g/dL (30.0-36.0) RDW 15.5 % H % (12.1-15.1) Plt Count 391 10^3/cmm 10^3 /cmm (130-400) MPV 9.1 fL fL (7.4-10.4) Neut % (Auto) 76.8 % % Lymph % (Auto) 9.0 % % Cecil % (Auto) 8.4 % % Eos % (Auto) 0.8 % % Baso % (Auto) 0.3 % % Neut # (Auto) 7.68 10^3/uL 10^3 /uL (1.8-7.7) Lymph # (Auto) 0.9 10^3/uL 10^3/ uL (0.8-4.8) Cecil # (Auto) 0.8 10^3/uL 10^3/ uL (0.2-0.9) Eos # (Auto) 0.1 10^3/uL 10^3/ uL (0.0-0.8) Baso # (Auto) 0.0 10^3/uL 10^3/ uL (0.0-0.1) Nucleated RBC % (a uto) 0 % % Nucleated RBCs # 0.0 /100WBC /100W BC Sodium 137 mmol/L mmol/L (136-145) Potassium 3.3 mmol/L L mmol /L (3.5-5.1) Chloride 100 mmol/L mmol/L (98-107) Carbon Dioxide 25 mmol/L mmol/L (22-29) Anion Gap 15.3 (5-19) BUN 20 mg/dL mg/dL (8-23) Creatinine 1.3 mg/dL H mg/dL (0.5-0.9) GFR Calculation Not Reportable Glucose 96 mg/dL mg/dL (65-115) Calculated Osmolal ity 286 mOsm/kg mOsm/ kg (285-295) Lactic Acid Calcium 7.6 mg/dL L mg/dL (8.5-10.5) Total Bilirubin 0.2 mg/dL mg/dL (0.15-1.2) AST 15 U/L U/L (0-32) ALT 10 U/L U/L (0-33) Alkaline Phosphata se 139 IU/L H IU/L (35-105) Total Protein 6.1 g/dL L g/dL (6.6-8.7) Albumin 3.0 g/dL L g/dL (3.5-5.2) Globulin 3.1 g/dL g/dL (1.3-4.6) Procalcitonin 0.19 ng/mL ng/mL (0-0.5) TSH Free T4 Free T3 Urine Color Urine Appearance Urine pH Ur Specific Gravit y Urine Protein Urine Glucose (UA) Urine Ketones Urine Blood Urine Nitrate Urine Bilirubin Urine Urobilinogen Ur Leukocyte Alesha ase Urine RBC Urine WBC Ur Squamous Epith Cells Amorphous Sediment Urine Bacteria Hyaline Casts Imaging Data^: CT Head: Radiologist's impression: [facility] [address] [place] [address] CT Scan Report Signed Patient: Adelaide Miller Unit #: [id number] : 1935 Age/Sex: 86 / F ADM Date: 10/23/21 Loc: ER Room/Bed: Attending Dr: Ordering Provider/Ordering MD: Amy Cote Date of Service: 10/23/21 Procedure(s): CT head wo con* [id number] Accession Number(s): [id number] Report Number: [id number] PROCEDURE INFORMATION: Exam: CT Head Without Contrast Exam date and time: 10/23/2021 9:34 PM Age: 86 years old Clinical indication: Altered mental status/memory loss; Additional info: AMS TECHNIQUE: Imaging protocol: Computed tomography of the head without contrast. Radiation optimization: All CT scans at this facility use at least one of these dose optimization techniques: automated exposure control; mA and/or kV adjustment per patient size (includes targeted exams where dose is matched to clinical indication); or iterative reconstruction. COMPARISON: CT head wo con* [id number] 10/14/2021 9:25 PM RADIATION DOSE METRICS: Total DLP (mGy-cm): 796.72 FINDINGS: Brain: Mild atrophy and mild white matter chronic microvascular changes are noted. No hemorrhage or evidence of acute infarction. Cerebral ventricles: No ventriculomegaly. Paranasal sinuses: Visualized sinuses are unremarkable. No fluid levels. Mastoid air cells: Visualized mastoid air cells are well aerated. Bones/joints: Unremarkable. No acute fracture. Soft tissues: Unremarkable. CT/CT head wo con* [id number] IMPRESSION: No acute intracranial abnormality. Dictated By: Franklin Tinoco MD Signed By: Franklin Tinoco MD Signed Date/Time: 10/23/212211 DD/ 33 CXR: Radiologist's impression: [address] [id number] ReportSigned Patient: Adelaide Miller AUnit #: [id number]: 5Acct#:[id number]/Sex: 86 / FADM Date: 10/23/21Loc: ERRoom/Bed:Attending Dr: Ordering Provider/Ordering MD: Amy Cote Date of Service: 10/23/21 Procedure(s): XR chest 1V portable [id number] Accession Number(s): [id number] Report Number: [id number] PROCEDURE INFORMATION: Exam: XR Chest Exam date and time: 10/23/2021 9:34 PM Age: 86 years old Clinical indication: Other: Hallucinations; Additional info: AMS TECHNIQUE: Imaging protocol: XR of the chest. Views: 1 view. COMPARISON: CT chest abd pel w con* 10/14/2021 9:32 PM FINDINGS: Lungs: Biapical subpleural scarring is again noted. No acute airspace process is visualized. Pleural spaces: Unremarkable. No pleural effusion. No pneumothorax. Heart/Mediastinum: The heart is normal in size. The aorta is mildly calcified. Bones/joints: Orthopedic hardware is seen in the proximal left humerus. No acute fracture is visualized. XR/XR chest 1V portable [id number] IMPRESSION: No acute cardiopulmonary abnormality. Dictated By:Franklin Tinoco MDSigned By:Franklin Tinoco MDSigned Date/Time:10/23/212214DD/ 33 CT renal: Radiologist's impression: [address] [address] [address] Scan Report Signed Patient: Adelaide Miller Unit #: [id number] : 1935 Age/Sex: 86 / F ADM Date: 10/23/21 Loc: ER Room/Bed: Attending Dr: Ordering Provider/Ordering MD: Amy Cote Date of Service: 10/24/21 Procedure(s): CT kidney stone [id number] Accession Number(s): [id number] Report Number: [id number] PROCEDURE INFORMATION: Exam: CT Abdomen And Pelvis Without Contrast Exam date and time: 10/24/2021 12:17 AM Age: 86 years old Clinical indication: Abdominal pain; Patient HX: C/O back pain. Hematuria. ; Additional info: Back pain, AMS TECHNIQUE: Imaging protocol: Computed tomography of the abdomen and pelvis without contrast. Radiation optimization: All CT scans at this facility use at least one of these dose optimization techniques: automated exposure control; mA and/or kV adjustment per patient size (includes targeted exams where dose is matched to clinical indication); or iterative reconstruction. COMPARISON: CT chest abd pel w con* 10/14/2021 9:32 PM RADIATION DOSE METRICS: Total DLP (mGy-cm): 639.22 FINDINGS: Pleural spaces: Trace bilateral pleural fluid. Diaphragm: Large hiatal hernia. Liver: Normal. No mass. Gallbladder and bile ducts: Normal. No calcified stones. No ductal dilation. Pancreas: Normal. No ductal dilation. Spleen: Normal. No splenomegaly. Adrenal glands: Normal. No mass. Kidneys and ureters: Normal. No hydronephrosis. Stomach and bowel: Unremarkable. No obstruction. No mucosal thickening. Appendix: No evidence of appendicitis. Intraperitoneal space: Unremarkable. No free air. No significant fluid collection. Vasculature: Diffuse atherosclerosis. Negative for abdominal aortic aneurysm. Lymph nodes: Unremarkable. No enlarged lymph nodes. Urinary bladder: Bladder is fairly decompressed with a Feliciano catheter in place. No wall thickening or mass apparent. Reproductive: Hysterectomy. Bones/joints: Diffuse osseous demineralization changes. Vertebral body compression deformities of T12, L1, L2 unchanged in height loss. Severe rightward convex lumbar spine scoliosis is unchanged. Soft tissues: Unremarkable. CT/CT kidney stone [id number] IMPRESSION: 1. Negative for acute abdominopelvic pathology. 2. No cause of hematuria identified. Dictated By: Kwesi Gongora Signed By: Kwesi Gongora Signed Date/Time: 10/24/21115 DD/ Discharge Plan Discharge Patient Disposition: Placed in Observation Admit Provider: Nathan Eason Clinical Impression: Altered mental status, TSH elevation Coding Level of Care Code ED Sexual Abuse Counsellor for Chg Fwd Exam Comprehensive Documented by User: Cyril Knowles DO 10/24/21 19:58 HPI - Altered Mental Status General: Chief Complaint: Altered Mental Status Stated Complaint: Hallucinating Time Seen by Provider: 10/23/21 21:24 [facility] ED PFSH: Medical History (Updated 10/24/21 @ 04:57 by Nathan Esaon MD) C1 cervical fracture Dementia Hypertension Hypothyroidism No pertinent family history Surgical History No pertinent past surgical history Social History Smoking and tobacco status: never smoked Course Vital Signs: Vital signs: Vital Signs Temperature 99.2 F 10/24/21 19:37 Pulse Rate 62 10/24/21 19:37 Respiratory Rate 22 H 10/24/21 19:37 Blood Pressure 160/58 10/24/21 19:37 Pulse Oximetry 95 10/24/21 19:37 MDM - Altered Mental Status MDM Narrative: Medical decision making narrative: This patient was originally seen by Mrs. CoteCHRIS Jon. I agree with her history, evaluation, and treatment. Admitted to hospitalist Lab Data: Labs: Lab Results 10/23/21 10/23/21 10/23/21 22:00 22:00 22:00 WBC 11.9 10^3/uL H 10 ^3/uL (4.0-10.0) RBC 3.65 10^6/uL L 10 ^6/uL (4.1-5.3) Hgb 10.3 g/dL L g/dL (11.5-15.3) Hct 32.4 % L % (37.0-47.0) MCV 88.8 fl fl (81-99) MCH 28.2 pg pg (28.0-34.0) MCHC 31.8 g/dL g/dL (30.0-36.0) RDW 15.7 % H % (12.1-15.1) Plt Count 491 10^3/cmm H 10 ^3/cmm (130-400) MPV 8.9 fL fL (7.4-10.4) Neut % (Auto) 79.8 % % Lymph % (Auto) 7.1 % % Cecil % (Auto) 7.3 % % Eos % (Auto) 0.5 % % Baso % (Auto) 0.4 % % Neut # (Auto) 9.46 10^3/uL H 10 ^3/uL (1.8-7.7) Lymph # (Auto) 0.8 10^3/uL 10^3/ uL (0.8-4.8) Cecil # (Auto) 0.9 10^3/uL 10^3/ uL (0.2-0.9) Eos # (Auto) 0.1 10^3/uL 10^3/ uL (0.0-0.8) Baso # (Auto) 0.1 10^3/uL 10^3/ uL (0.0-0.1) Nucleated RBC % (a uto) 0 % % Nucleated RBCs # 0.0 /100WBC /100W BC Sodium 139 mmol/L mmol/L (136-145) Potassium 3.3 mmol/L L mmol /L (3.5-5.1) Chloride 101 mmol/L mmol/L (98-107) Carbon Dioxide 24 mmol/L mmol/L (22-29) Anion Gap 17.3 (5-19) BUN 23 mg/dL mg/dL (8-23) Creatinine 1.4 mg/dL H mg/dL (0.5-0.9) GFR Calculation Not Reportable Glucose 108 mg/dL mg/dL (65-115) Calculated Osmolal ity 292 mOsm/kg mOsm/ kg (285-295) Lactic Acid 1.4 mmol/L mmol/L (0.5-2.2) Calcium 8.1 mg/dL L mg/dL (8.5-10.5) Total Bilirubin 0.3 mg/dL mg/dL (0.15-1.2) AST 18 U/L U/L (0-32) ALT 12 U/L U/L (0-33) Alkaline Phosphata se 156 IU/L H IU/L (35-105) Total Protein 6.7 g/dL g/dL (6.6-8.7) Albumin 3.3 g/dL L g/dL (3.5-5.2) Globulin 3.4 g/dL g/dL (1.3-4.6) Procalcitonin TSH Free T4 Free T3 Urine Color Urine Appearance Urine pH Ur Specific Gravit y Urine Protein Urine Glucose (UA) Urine Ketones Urine Blood Urine Nitrate Urine Bilirubin Urine Urobilinogen Ur Leukocyte Alesha ase Urine RBC Urine WBC Ur Squamous Epith Cells Amorphous Sediment Urine Bacteria Hyaline Casts 10/23/21 10/23/21 10/23/21 22:00 22:00 22:35 WBC RBC Hgb Hct MCV MCH MCHC RDW Plt Count MPV Neut % (Auto) Lymph % (Auto) Cecil % (Auto) Eos % (Auto) Baso % (Auto) Neut # (Auto) Lymph # (Auto) Cecil # (Auto) Eos # (Auto) Baso # (Auto) Nucleated RBC % (a uto) Nucleated RBCs # Sodium Potassium Chloride Carbon Dioxide Anion Gap BUN Creatinine GFR Calculation Glucose Calculated Osmolal ity Lactic Acid Calcium Total Bilirubin AST ALT Alkaline Phosphata se Total Protein Albumin Globulin Procalcitonin TSH 48.20 uIU/mL H uI U/mL (0.27-4.20) Free T4 0.76 ng/dL L ng/d L (0.82-1.77) Free T3 0.7 PG/ML L PG/ML (2.0-4.4) Urine Color Yellow (Yellow) Urine Appearance Clear (CLEAR) Urine pH 6 (5-7) Ur Specific Gravit y 1.010 (1.005-1.030) Urine Protein Neg (Negative) Urine Glucose (UA) Norm (Normal) Urine Ketones 1+ H (Negative) Urine Blood 2+ H (Negative) Urine Nitrate Negative (Negative) Urine Bilirubin Neg (Negative) Urine Urobilinogen Norm mg/dL mg/dL (Negative) Ur Leukocyte Alesha ase Negative (Negative) Urine RBC 10-15 /hpf H /hpf (0-2) Urine WBC 15-25 /hpf H /hpf (0-5) Ur Squamous Epith Cells 0-4 /hpf H /hpf (0-5) Amorphous Sediment Not Reportable Urine Bacteria Trace /hpf /hpf (NONE) Hyaline Casts 0-4 /lpf H /lpf 10/24/21 10/24/21 06:34 06:34 WBC 10.0 10^3/uL 10^3 /uL (4.0-10.0) RBC 3.37 10^6/uL L 10 ^6/uL (4.1-5.3) Hgb 9.4 g/dL L g/dL (11.5-15.3) Hct 30.1 % L % (37.0-47.0) MCV 89.3 fl fl (81-99) MCH 27.9 pg L pg (28.0-34.0) MCHC 31.2 g/dL g/dL (30.0-36.0) RDW 15.5 % H % (12.1-15.1) Plt Count 391 10^3/cmm 10^3 /cmm (130-400) MPV 9.1 fL fL (7.4-10.4) Neut % (Auto) 76.8 % % Lymph % (Auto) 9.0 % % Cecil % (Auto) 8.4 % % Eos % (Auto) 0.8 % % Baso % (Auto) 0.3 % % Neut # (Auto) 7.68 10^3/uL 10^3 /uL (1.8-7.7) Lymph # (Auto) 0.9 10^3/uL 10^3/ uL (0.8-4.8) Cecil # (Auto) 0.8 10^3/uL 10^3/ uL (0.2-0.9) Eos # (Auto) 0.1 10^3/uL 10^3/ uL (0.0-0.8) Baso # (Auto) 0.0 10^3/uL 10^3/ uL (0.0-0.1) Nucleated RBC % (a uto) 0 % % Nucleated RBCs # 0.0 /100WBC /100W BC Sodium 137 mmol/L mmol/L (136-145) Potassium 3.3 mmol/L L mmol /L (3.5-5.1) Chloride 100 mmol/L mmol/L (98-107) Carbon Dioxide 25 mmol/L mmol/L (22-29) Anion Gap 15.3 (5-19) BUN 20 mg/dL mg/dL (8-23) Creatinine 1.3 mg/dL H mg/dL (0.5-0.9) GFR Calculation Not Reportable Glucose 96 mg/dL mg/dL (65-115) Calculated Osmolal ity 286 mOsm/kg mOsm/ kg (285-295) Lactic Acid Calcium 7.6 mg/dL L mg/dL (8.5-10.5) Total Bilirubin 0.2 mg/dL mg/dL (0.15-1.2) AST 15 U/L U/L (0-32) ALT 10 U/L U/L (0-33) Alkaline Phosphata se 139 IU/L H IU/L (35-105) Total Protein 6.1 g/dL L g/dL (6.6-8.7) Albumin 3.0 g/dL L g/dL (3.5-5.2) Globulin 3.1 g/dL g/dL (1.3-4.6) Procalcitonin 0.19 ng/mL ng/mL (0-0.5) TSH Free T4 Free T3 Urine Color Urine Appearance Urine pH Ur Specific Gravit y Urine Protein Urine Glucose (UA) Urine Ketones Urine Blood Urine Nitrate Urine Bilirubin Urine Urobilinogen Ur Leukocyte Alesha ase Urine RBC Urine WBC Ur Squamous Epith Cells Amorphous Sediment Urine Bacteria Hyaline Casts Discharge Plan Discharge Patient Disposition: Placed in Observation Admit Provider: Nathan Eason Clinical Impression: Altered mental status, TSH elevation Coding Level of Care Code ED Sexual Abuse Counsellor for Chg Fwd Exam Comprehensive
[2021-10-23 22:19] LABS: Basophils # 0.1 10^3/uL (0.0-0.1); Basophils % 0.4 %; Eosinophils # 0.1 10^3/uL (0.0-0.8); Eosinophils % 0.5 %; Hematocrit 32.4 % (37.0-47.0); Hemoglobin 10.3 g/dL (11.5-15.3); Lymphocytes # 0.8 10^3/uL (0.8-4.8); Lymphocytes % 7.1 %; Mean Corpuscular HGB Conc 31.8 g/dL (30.0-36.0); Mean Corpuscular Hemoglobin 28.2 pg (28.0-34.0); Mean Corpuscular Volume 88.8 fl (81-99); Mean Platelet Volume 8.9 fL (7.4-10.4); Monocytes # 0.9 10^3/uL (0.2-0.9); Monocytes % 7.3 %; Neutrophils # 9.46 10^3/uL (1.8-7.7); Neutrophils % 79.8 %; Nucleated Red Blood Cells % 0 %; Platelet Count 491 10^3/cmm (130-400); Red Blood Count 3.65 10^6/uL (4.1-5.3); Red Cell Distribution Width 15.7 % (12.1-15.1); White Blood Count 11.9 10^3/uL (4.0-10.0)
[2021-10-23 22:35] LABS: Alanine Aminotransferase 12 U/L (0-33); Albumin Level 3.3 g/dL (3.5-5.2); Alkaline Phosphatase 156 IU/L (35-105); Anion Gap 17.3 (5-19); Aspartate Amino Transferase 18 U/L (0-32); Blood Urea Nitrogen 23 mg/dL (8-23); Calcium 8.1 mg/dL (8.5-10.5); Carbon Dioxide 24 mmol/L (22-29); Chloride 101 mmol/L (98-107); Globulin 3.4 g/dL (1.3-4.6); Glucose 108 mg/dL (65-115); Osmolality Calculated 292 mOsm/kg (285-295); Potassium 3.3 mmol/L (3.5-5.1); Sodium 139 mmol/L (136-145); Total Bilirubin 0.3 mg/dL (0.15-1.2); Total Protein 6.7 g/dL (6.6-8.7)
[2021-10-23 22:36] LABS: Lactic Sepsis W/Reflex 1.4 mmol/L (0.5-2.2)
[2021-10-23 22:51] LABS: Add Urine Microscopic? YES; Bilirubin Urine Neg (Negative); Blood Urine 2+ (Negative); Glucose Urine UA Norm (Normal); Ketones Urine 1+ (Negative); Leukocyte Esterase Urine Negative (Negative); Nitrate Urine Negative (Negative); Protein Urine Neg (Negative); Urine Appearance Clear (CLEAR); Urine Color Yellow (Yellow); Urobilinogen Urine Norm (Negative); pH Urine 6 (5-7)
[2021-10-23 23:00] LABS: Add Urine Culture? Yes; Bacteria Urine TRACE /hpf; Hyaline Casts Urine 0-4 /lpf; Squamous Epithelial Cell Urine 0-4 /hpf (0-5); WBC Urine 15-25 /hpf (0-5)
--- NOTE | 2021-10-24 00:17 | CTR_ITS ---
PROCEDURE INFORMATION: Exam: CT Abdomen And Pelvis Without Contrast Exam date and time: 10/24/2021 12:17 AM Age: 86 years old Clinical indication: Abdominal pain; Patient HX: C/O back pain. Hematuria. ; Additional info: Back pain, AMS TECHNIQUE: Imaging protocol: Computed tomography of the abdomen and pelvis without contrast. Radiation optimization: All CT scans at this facility use at least one of these dose optimization techniques: automated exposure control; mA and/or kV adjustment per patient size (includes targeted exams where dose is matched to clinical indication); or iterative reconstruction. COMPARISON: CT chest abd pel w con* 10/14/2021 9:32 PM RADIATION DOSE METRICS: Total DLP (mGy-cm): 639.22 FINDINGS: Pleural spaces: Trace bilateral pleural fluid. Diaphragm: Large hiatal hernia. Liver: Normal. No mass. Gallbladder and bile ducts: Normal. No calcified stones. No ductal dilation. Pancreas: Normal. No ductal dilation. Spleen: Normal. No splenomegaly. Adrenal glands: Normal. No mass. Kidneys and ureters: Normal. No hydronephrosis. Stomach and bowel: Unremarkable. No obstruction. No mucosal thickening. Appendix: No evidence of appendicitis. Intraperitoneal space: Unremarkable. No free air. No significant fluid collection. Vasculature: Diffuse atherosclerosis. Negative for abdominal aortic aneurysm. Lymph nodes: Unremarkable. No enlarged lymph nodes. Urinary bladder: Bladder is fairly decompressed with a Feliciano catheter in place. No wall thickening or mass apparent. Reproductive: Hysterectomy. Bones/joints: Diffuse osseous demineralization changes. Vertebral body compression deformities of T12, L1, L2 unchanged in height loss. Severe rightward convex lumbar spine scoliosis is unchanged. Soft tissues: Unremarkable. CT/CT kidney stone [id number] IMPRESSION: 1. Negative for acute abdominopelvic pathology. 2. No cause of hematuria identified.
--- NOTE | 2021-10-24 00:42 | P.HP_ITS ---
Providers/Chief Complaint Admitting Physician: Nathan Eason Primary Care Provider: Real Ambriz DO Chief Complaint: Hallucinating History of Present Illness 86-year-old female with a past medical history significant for hypertension, hypothyroidism, Alzheimers, fall with C1 fracture on 10/14 and urinary tract infection who was brought to ER by daughter for evaluation of altered mental status. Patient had similar symptoms when she had presented on 10/14 during which time she was diagnosed with UTI however she was transferred to [facility] for work up of C1 fracture and was not initially started on antibiotics. She was seen outpatient post discharge and eventually started on levaquin. After initiation of oral levaquin patients has been increasingly confused. Noted to have hallucinations as well which is not typical for her with Alzheimer. Laboratory workup on arrival showed a WBC of 11.9, hemoglobin of 10.3, hematocrit of 32.4 and platelet count of 491. Sodium 139, potassium 3.3, chloride 101, bicarb 24, BUN 23 and creatinine of 1.4. Of note this was 1.6 on 10/14. TSH was elevated at 48.2. Free T4 of 0.76. Free T3 of 0.7. Urinalysis showed negative leukocyte esterase and nitrates however was noted to have 10 to 25 wbcs. Imaging studies included a CT abdomen pelvis which did not show any evidence of acute abnormality.Head CT did not show any evidence of acute in tracranial abnormality.Chest x-ray was also negative. Patient was given Rocephin 1 g IV x1 and potassium replacement. Review of Systems General: Reports: ROS unobtainable due to mental status Medications/Allergies Home Medications Medication Instructions Recorded Confirmed Last Taken Type acetaminophen [Tylenol Arthritis 1,300 mg PO PRN 02/23/20 02/23/20 02/23/20 History Pain] calcium carbonate [Calcium 500] 500 mg PO DAILY 02/23/20 02/23/20 Unknown History duloxetine 60 mg PO DAILY 02/23/20 02/23/20 Unknown History levothyroxine 137 mcg PO DAILY 02/23/20 02/23/20 02/23/20 History lorazepam 0.5 mg PO DAILY PRN 02/23/20 02/23/20 Unknown History Allergies Allergy/AdvReac Type Severity Reaction Status Date / Time No Known Allergies Allergy Verified 10/23/21 21:21 PFSH Acute PFSH: Medical History (Updated 10/24/21 @ 04:57 by Nathan Eason MD) C1 cervical fracture Dementia Hypertension Hypothyroidism No pertinent family history Surgical History No pertinent past surgical history Social History Smoking and tobacco status: never smoked Vitals/I&O/Wt Last Vital Signs Temp 98.9 F 10/23/21 21:18 Pulse 91 10/23/21 21:18 Resp 16 10/23/21 21:18 BP 174/78 10/23/21 21:18 Pulse Ox 97 10/23/21 21:18 10/23/21 10/23/21 10/24/21 14:59 22:59 06:59 Intake Total 50 / 50 Output Total 600 / 600 Balance -550 / -550 Weight last 48 hrs Weight 50.349 kg Weight 50.349 kg Physical Exam Narrative: EXAM NARRATIVE: General : Alert, awake, confused HEENT: Grossly unremarkable CVS: NSR Chest; Non labored respiration ABD;Soft NT,ND Ext : no edema Urinary Catheter Management^: Feliciano: Cath Placed During This Visit: yes Urinary Catheter Date of Insertion: 10/23/21 Urinary Catheter Time of Insertion: 22:36 Data : 10/23/21 22:00 10/23/21 22:00 Micro: Microbiology 10/23/21 22:00 Blood Culture - Preliminary Blood SPECIMEN COLLECTED 10/23/21 22:00 Blood Culture - Preliminary Blood SPECIMEN COLLECTED A&P Assessment and plan (1) Altered mental status: Status: Acute (2) TSH elevation: Status: Acute Additional A&P Information Altered mental status Underlying dementia Infectious vs drug induced vs progressing dementia Will d/c levaquin Head CT - No acute findings Escherichia Coli UTI/Bacteremia Noted on 10/14/2021 Not initially treated Repeat blood culture x 2 Rocephin 1g IV q24hr Discontinue levaquin CT abd/pelvis - No acute findings Acute kidney injury Creatinine 1.4 IVF at 75 cc/hr Monitor u/o Renal dosing of meds Hypokalemia K 3.3 Replaced in ER Repeat BMP in am Recent Fall with C1 Fracture Obtain records from [facility] TSH 48 Unclear if pt was taking thyroid replacement Resume Synthroid 137mcg PO daily Repeat Labs in 4-6 weeks Hypertension Verify home meds and resume DVT ppx Heparin Attestations Medical Necessity Statement*: Anticipate less than 2 midnight stay in hospital for eval and treatment Time Spent in Patient Care: Greater than 35 minutes (>than 50% of time spent in counselling and/or direct pt care on unit) . Coding Level of Care Code Acute Watch Dial Printer for Chg Fwd Diagnoses Altered mental status R41.82 TSH elevation R79.89
[2021-10-24 00:54] LABS: Free T4 Free Thyroxine 0.76 ng/dL (0.82-1.77); T3 Free 0.7 PG/ML (2.0-4.4)
[2021-10-24] MEDS: ropinirole 1 mg Tablet PO (01:15)
[2021-10-24] MEDS: cefTRIAXone 1,000 MG in sodium chloride 0.9% (plus) 50 ML 100 MG IV (01:19)
--- NOTE | 2021-10-24 02:14 | PC.NURSE ---
ADMIT NOTE Pt received to floor from ER at 0205. Changed into gown. Is alert but quite confused. Denies pain. Feliciano intact and draining well. IV PIID in place to left wrist area. Bed alarm on for pt safety
[2021-10-24 02:26] VITALS: BMI 20.9
[2021-10-24 04:39] VITALS: BP 148/76; PULSE 88; RESP 16; TEMP 36.9; O2SAT 95
[2021-10-24] MEDS: heparin 5,000 unit/mL INJ 1 mL 5000 UNIT SUBCUT ×3 (05:05→20:29)
[2021-10-24] MEDS: sodium chloride 0.9% 1,000 ML 75 ML IV ×2 (05:05→17:26)
[2021-10-24 07:04] VITALS: BP 161/83; PULSE 86; RESP 18; TEMP 36.9; O2SAT 96
[2021-10-24 07:16] LABS: Basophils % 0.3 %; Eosinophils # 0.1 10^3/uL (0.0-0.8); Eosinophils % 0.8 %; Hematocrit 30.1 % (37.0-47.0); Hemoglobin 9.4 g/dL (11.5-15.3); Lymphocytes # 0.9 10^3/uL (0.8-4.8); Mean Corpuscular HGB Conc 31.2 g/dL (30.0-36.0); Mean Corpuscular Hemoglobin 27.9 pg (28.0-34.0); Mean Corpuscular Volume 89.3 fl (81-99); Mean Platelet Volume 9.1 fL (7.4-10.4); Monocytes # 0.8 10^3/uL (0.2-0.9); Monocytes % 8.4 %; Neutrophils # 7.68 10^3/uL (1.8-7.7); Neutrophils % 76.8 %; Nucleated Red Blood Cells % 0 %; Platelet Count 391 10^3/cmm (130-400); Red Blood Count 3.37 10^6/uL (4.1-5.3); Red Cell Distribution Width 15.5 % (12.1-15.1)
[2021-10-24 07:34] LABS: Alanine Aminotransferase 10 U/L (0-33); Alkaline Phosphatase 139 IU/L (35-105); Anion Gap 15.3 (5-19); Aspartate Amino Transferase 15 U/L (0-32); Blood Urea Nitrogen 20 mg/dL (8-23); Calcium 7.6 mg/dL (8.5-10.5); Carbon Dioxide 25 mmol/L (22-29); Chloride 100 mmol/L (98-107); Globulin 3.1 g/dL (1.3-4.6); Glucose 96 mg/dL (65-115); Osmolality Calculated 286 mOsm/kg (285-295); Potassium 3.3 mmol/L (3.5-5.1); Sodium 137 mmol/L (136-145); Total Bilirubin 0.2 mg/dL (0.15-1.2); Total Protein 6.1 g/dL (6.6-8.7)
[2021-10-24 07:39] LABS: Procalcitonin 0.19 ng/mL (0-0.5)
--- NOTE | 2021-10-24 08:36 | PC.PHAR ---
pts daughter sherrie verified pts medications
[2021-10-24] MEDS: potassium chloride oral liq 20 mEq/15 mL UDC 40 MEQ PO (09:05)
[2021-10-24] MEDS: levothyroxine 137 mcg Tablet PO (09:05)
[2021-10-24 11:15] VITALS: BP 200/82; PULSE 84; RESP 18; TEMP 36.7; O2SAT 99
[2021-10-24 15:20] VITALS: BP 181/67; PULSE 90; RESP 18; TEMP 36.9; O2SAT 97
--- NOTE | 2021-10-24 16:12 | PM.PN ---
Subjective Subjective: Interval history: Seen this AM. Patient is confused. Not able to report any complaints either. No acute events overnight. Vitals/I&O/Wt Last Vital Signs Temp 98.4 F 10/24/21 15:20 Pulse 90 10/24/21 15:20 Resp 18 10/24/21 15:20 BP 181/67 10/24/21 15:20 Pulse Ox 97 10/24/21 15:20 10/24/21 10/24/21 10/24/21 06:59 14:59 22:59 Intake Total 50 / 50 240 / 240 Output Total 600 / 600 Balance -550 / -550 240 / 240 Weight last 48 hrs Weight 50.349 kg Weight 50.349 kg Physical Exam Narrative: EXAM NARRATIVE: General : Alert, awake, confused, frail appearing elderly female HEENT: Grossly unremarkable CVS: NSR, no gross murmers. Chest; Non labored respiration, clear to ausculation ABD;Soft NT,ND Ext : no edema Urinary Catheter Management^: Feliciano: Cath Placed During This Visit: yes Reason for Continuing Indwelling Catheter: Other Urinary Catheter Date of Insertion: 10/23/21 Urinary Catheter Time of Insertion: 22:36 Data : 10/24/21 06:34 10/24/21 06:34 Micro: Microbiology 10/23/21 22:00 Blood Culture - Preliminary Blood SPECIMEN COLLECTED 10/23/21 22:00 Blood Culture - Preliminary Blood SPECIMEN COLLECTED A&P Assessment and plan (1) Altered mental status: Status: Acute (2) TSH elevation: Status: Acute Additional A&P Information Altered mental status Underlying dementia Infectious vs drug induced vs progressing dementia Will d/c levaquin Head CT - No acute findings Escherichia Coli UTI/Bacteremia Noted on 10/14/2021 Not initially treated Repeat blood culture x 2 Rocephin 1g IV q24hr Discontinue levaquin CT abd/pelvis - No acute findings Acute kidney injury Creatinine 1.4 at admission. Today 1.3. IVF at 75 cc/hr Monitor u/o Renal dosing of meds Hypokalemia K 3.3 Replaced in ER Repeat BMP in am Recent Fall with C1 Fracture Obtain records from [facility] TSH 48 Unclear if pt was taking thyroid replacement Resume Synthroid 137mcg PO daily Repeat Labs in 4-6 weeks Hypertension Not on home BP meds from records. Will start amlodipine 10 daily. DVT ppx Heparin Attestations Medical Necessity Statement*: > 24 hour stay Coding Level of Care Code Acute Branch Service Representative for Chg Fwd Diagnoses Altered mental status R41.82 TSH elevation R79.89
[2021-10-24] MEDS: amlodipine 10 mg Tablet PO (17:25)
[2021-10-24] MEDS: ziprasidone 20 mg/mL SDV 10 MG IM (18:08)
[2021-10-24 19:37] VITALS: BP 160/58; PULSE 62; RESP 22; TEMP 37.3; O2SAT 95
[2021-10-24 23:54] VITALS: BP 143/73; PULSE 84; RESP 20; TEMP 37.2; O2SAT 96
[2021-10-25] MEDS: cefTRIAXone 1,000 MG in sodium chloride 0.9% (plus) 50 ML 100 MG IV (01:59)
[2021-10-25 04:00] VITALS: BP 149/71; PULSE 78; RESP 20; TEMP 37.3; O2SAT 95
[2021-10-25] MEDS: heparin 5,000 unit/mL INJ 1 mL 5000 UNIT SUBCUT ×3 (04:36→20:29)
[2021-10-25 05:38] LABS: Basophils % 0.4 %; Eosinophils # 0.1 10^3/uL (0.0-0.8); Eosinophils % 0.7 %; Hematocrit 36.5 % (37.0-47.0); Hemoglobin 11.4 g/dL (11.5-15.3); Lymphocytes % 8.8 %; Mean Corpuscular HGB Conc 31.2 g/dL (30.0-36.0); Mean Corpuscular Hemoglobin 28.1 pg (28.0-34.0); Mean Corpuscular Volume 90.1 fl (81-99); Neutrophils # 8.74 10^3/uL (1.8-7.7); Neutrophils % 77.5 %; Nucleated Red Blood Cells % 0 %; Platelet Count 436 10^3/cmm (130-400); Red Blood Count 4.05 10^6/uL (4.1-5.3); Red Cell Distribution Width 15.8 % (12.1-15.1); White Blood Count 11.3 10^3/uL (4.0-10.0)
[2021-10-25 06:13] LABS: Anion Gap 15.3 (5-19); Blood Urea Nitrogen 17 mg/dL (8-23); Calcium 8.2 mg/dL (8.5-10.5); Carbon Dioxide 26 mmol/L (22-29); Chloride 101 mmol/L (98-107); Glucose 105 mg/dL (65-115); Magnesium 1.9 mg/dL (1.7-2.3); Osmolality Calculated 290 mOsm/kg (285-295); Potassium 3.3 mmol/L (3.5-5.1); Sodium 139 mmol/L (136-145)
[2021-10-25 07:44] VITALS: BP 175/85; PULSE 85; RESP 18; TEMP 36.8; O2SAT 96
[2021-10-25] MEDS: sodium chloride 0.9% 1,000 ML 75 ML IV ×2 (07:55→20:28)
[2021-10-25] MEDS: levothyroxine 137 mcg Tablet PO (08:00)
[2021-10-25] MEDS: amlodipine 10 mg Tablet PO (08:00)
[2021-10-25 11:27] VITALS: BP 154/68; PULSE 92; RESP 17; TEMP 37; O2SAT 96
[2021-10-25] MEDS: potassium chloride oral liq 20 mEq/15 mL UDC 40 MEQ PO (12:36)
[2021-10-25 15:41] VITALS: BP 165/85; PULSE 91; RESP 17; TEMP 36.9; O2SAT 98
--- NOTE | 2021-10-25 15:41 | PC.CHAP ---
Pastoral Care Encounter/Spiritual Assessment Type of Contact [] Declined charge entry specialist visit [] Patient/Family/Request visit [] Outpatient visit [] Follow-up visit [] Physician referral [] Code/Alert [XX] Routine visit [] Staff referral [] Actively dying [] Patient sleeping [] Family support [] [] Out of room [] Palliative care [] [] Receiving care in room [] Pre-surgical visit [] Trauma [] Long length of stay [] ICU visit [XX] Other: daughter present; documentation is about visit with daughter Relational/Emotional Strength [] Patient feels connected with others/family/visitors/staff [XX] Distress [] Loneliness/isolation [] Abandonment Spirituality of Patient [] Person of Sury [] Attends Christianity of their Sury [XX] Believes in Prayer [XX] Reads Bible or Protestant materials [XX] There are Spiritual issues to be addressed Signal Tower Operator Interventions [XX] Prayer [XX] Active listening [XX] Non-anxious presence [] Spiritual/emotional support [] Crisis/trauma care [] Spiritual counseling [] Bereavement support [] Provided bereavement packet [XX] Provided Bible/devotional materials [] Provided toy/stuffed animal, coloring book to patient or family member [] Provided Communion [] Anointing/[place] [] Salvation [XX] Completed spiritual assessment [] Other: Impact on Illness or Injury [] Angry [] Fearful [] Anxious [] Often cries [] Exhaustion [] Unable to work [] Unable to attend jehovah's witness [] Unable to walk/stand [] Unable to read [] Unable to drive [] Unable to eat/drink [] Unable to sleep [] Unable to be with family [] Patient intubated [] Other: Summary: Pt is experiencing an altered mental state so visit was with pt's daughter who has lived with pt and taken care of her the past 2 years. The altered mental state has come on rapidly and daughter questions if is may be related to some medication pt was given a few weeks ago during a different hospitalization. Decisions are being made about nursing facility and hoping that it will be temporary. Signal Tower Operator provided anticipatory guidance for daughter re: her own need for care...that when caregiving for her mom ends (whether that is due to her mother's passing or placement in a nursing facility) that the daughter may experience lots of feelings and need support for herself. Her support system is primarily her daughters. Signal Tower Operator provided prayer and a Daily Bread. Time spent with patient: 25 mins
--- NOTE | 2021-10-25 16:56 | PM.PN ---
Subjective Subjective: Interval history: Seen this morning and again in the afternoon with daughter at bedside. Discussed with daughter her plan and current hospital stay management. Had a long discussion and daughter would like to take her to a jail and cannot take care of her at home. Patient is having sundowners and yesterday required Geodon IM x1 as she got combative with the nursing staff. She is still actively hallucinating. Unable to provide any history. Vitals/I&O/Wt Last Vital Signs Temp 98.5 F 10/25/21 15:41 Pulse 91 10/25/21 15:41 Resp 17 10/25/21 15:41 BP 165/85 10/25/21 15:41 Pulse Ox 98 10/25/21 15:41 10/25/21 10/25/21 10/25/21 06:59 14:59 22:59 Intake Total 1250 / 2656.25 480 / 480 Output Total 1400 / 2400 Balance -150 / 256.25 480 / 480 Weight last 48 hrs Weight 50.349 kg Weight 50.349 kg Physical Exam Narrative: EXAM NARRATIVE: General : Alert, awake, confused, frail appearing elderly female HEENT: Grossly unremarkable, EOMI CVS: NSR, no gross murmers. Chest; Non labored respiration, clear to ausculation ABD;Soft NT,ND Ext : no edema Neuro: No focal neurologic deficits can move all 4 extremities and talks very clearly. She is hallucinating however. Unable to follow any commands as she is very confused. Awake and alert however. Urinary Catheter Management^: Feliciano: Cath Placed During This Visit: yes Reason for Continuing Indwelling Catheter: Other Urinary Catheter Date of Insertion: 10/23/21 Urinary Catheter Time of Insertion: 22:36 Data : 10/25/21 04:13 10/25/21 04:13 Micro: Microbiology 10/23/21 22:35 Urine Culture - Preliminary Urine Catheterized 10/23/21 22:00 Blood Culture - Preliminary Blood NEGATIVE TO DATE 10/23/21 22:00 Blood Culture - Preliminary Blood NEGATIVE TO DATE A&P Assessment and plan (1) Altered mental status: Status: Acute (2) TSH elevation: Status: Acute Additional A&P Information Altered mental status Underlying dementia Infectious vs drug induced vs progressing dementia Will d/c levaquin Head CT - No acute findings Most likely her altered mental status is secondary to progressing dementia, hospital-acquired delirium for from her previous hospital stay versus hypothyroidism. Neurology follow-up recommended at discharge for management of Alzheimer's. Escherichia Coli UTI/Bacteremia Noted on 10/14/2021 Not initially treated Repeat blood culture x 2 negative to date so far, urine culture also not showing any growth. Urinalysis however was abnormal on admission. Is possible that she had antibiotics in her system and that is why urine culture is not accurate at this time. Rocephin 1g IV q24hr Discontinue levaquin CT abd/pelvis - No acute findings Will complete antibiotic course with her. Acute kidney injury Creatinine 1.4 at admission. Today 1.0. Resolving. IVF at 75 cc/hr Monitor u/o Renal dosing of meds Hypokalemia K 3.3 Replaced in ER Again 3.3 today. Will replete with oral potassium. Recent Fall with C1 Fracture Obtain records from [facility]. Records are not here yet. As per the daughter however the C1 fracture was chronic for her and no management was done at [facility]. Hypothyroidism TSH 48 Unclear if pt was taking thyroid replacement Resume Synthroid 137mcg PO daily Repeat Labs in 4-6 weeks Hypertension Not on home BP meds from records. Continue amlodipine 10 daily. DVT ppx Heparin Daughter updated in person and long discussion done with her in the room with nurse present at bedside. Total time 20 minutes. Attestations Medical Necessity Statement*: Greater than 24-hour stay. Pending placement. Also being managed for UTI at this time. Coding Level of Care Code Acute Cardiac Cath Lab Radiology Technologist for Zeferino Isidro Diagnoses Altered mental status R41.82 TSH elevation R79.89
[2021-10-25 20:00] VITALS: BP 139/72; PULSE 102; RESP 20; TEMP 37.3; O2SAT 90
[2021-10-25] MEDS: quetiapine 25 mg Tablet 12.5 MG PO (20:29)
[2021-10-25 23:27] VITALS: BP 164/82; PULSE 102; RESP 21; TEMP 37.4; O2SAT 95
[2021-10-26] MEDS: cefTRIAXone 1,000 MG in sodium chloride 0.9% (plus) 50 ML 100 MG IV (02:03)
[2021-10-26 03:48] VITALS: BP 161/87; PULSE 91; RESP 22; TEMP 37.4; O2SAT 96
[2021-10-26] MEDS: heparin 5,000 unit/mL INJ 1 mL 5000 UNIT SUBCUT ×3 (04:23→20:37)
[2021-10-26 06:12] LABS: Basophils # 0.1 10^3/uL (0.0-0.1); Basophils % 0.4 %; Eosinophils # 0.1 10^3/uL (0.0-0.8); Eosinophils % 0.5 %; Hematocrit 40.1 % (37.0-47.0); Hemoglobin 12.3 g/dL (11.5-15.3); Lymphocytes # 1.4 10^3/uL (0.8-4.8); Lymphocytes % 10.8 %; Mean Corpuscular HGB Conc 30.7 g/dL (30.0-36.0); Mean Corpuscular Hemoglobin 28.2 pg (28.0-34.0); Mean Platelet Volume 9.2 fL (7.4-10.4); Monocytes # 1.2 10^3/uL (0.2-0.9); Monocytes % 9.3 %; Neutrophils # 9.86 10^3/uL (1.8-7.7); Neutrophils % 76.8 %; Nucleated Red Blood Cells % 0 %; Platelet Count 472 10^3/cmm (130-400); Red Blood Count 4.36 10^6/uL (4.1-5.3); Red Cell Distribution Width 15.9 % (12.1-15.1); White Blood Count 12.8 10^3/uL (4.0-10.0)
[2021-10-26 06:33] LABS: Anion Gap 18.5 (5-19); Blood Urea Nitrogen 17 mg/dL (8-23); Calcium 8.2 mg/dL (8.5-10.5); Carbon Dioxide 24 mmol/L (22-29); Chloride 102 mmol/L (98-107); Glucose 106 mg/dL (65-115); Osmolality Calculated 294 mOsm/kg (285-295); Potassium 3.5 mmol/L (3.5-5.1); Sodium 141 mmol/L (136-145)
[2021-10-26 07:26] VITALS: BP 146/79; PULSE 120; RESP 16; TEMP 36.4; O2SAT 96
[2021-10-26] MEDS: levothyroxine 137 mcg Tablet PO (08:26)
[2021-10-26] MEDS: amlodipine 10 mg Tablet PO (08:26)
[2021-10-26] MEDS: sodium chloride 0.9% 1,000 ML 75 ML IV ×2 (10:55→23:48)
[2021-10-26 11:25] VITALS: BP 178/75; PULSE 86; RESP 16; TEMP 36.8; O2SAT 94
[2021-10-26 15:30] VITALS: BP 165/81; PULSE 102; RESP 16; TEMP 36.6; O2SAT 96
--- NOTE | 2021-10-26 15:49 | PM.PN ---
Subjective Subjective: Interval history: No significant changes since yesterday. The patient is awake but mainly unresponsive. No evidence of pain. No anxiety or agitation. Medications: Reviewed: Yes Medication Review Details: Generic Name Dose Route Start Last Admin Trade Name Katlin PRN Reason Stop Dose Admin Amlodipine Besylat e 10 mg 10/24/21 16:15 10/26/21 08:26 Amlodipine 10 Mg Tablet PO 10 mg DAILY ELIDA Administration Heparin Sodium (Po rcine) 5,000 unit 10/24/21 04:45 10/26/21 11:54 Heparin 5,000 Un it/Ml Inj 1 Ml SUBCUT 5,000 unit Q8H ELIDA Administration Sodium Chloride 1,000 mls @ 75 ml s/hr 10/24/21 04:45 10/26/21 10:55 Sodium Chloride 0.9% IV 75 mls/hr .[id number] ELIDA Administration Ceftriaxone Sodium 1,000 mg/ 50 mls @ 100 mls/ hr 10/25/21 02:00 10/26/21 02:45 Sodium Chloride IV Infused Q24H ELIAD Infusion Protocol Levothyroxine Sodi um 137 mcg 10/24/21 09:00 10/26/21 08:26 Levothyroxine 13 7 Mcg Tablet PO 137 mcg DAILY ELIDA Administration Quetiapine Fumarat e 12.5 mg 10/25/21 21:00 10/25/21 20:29 Quetiapine 25 Mg Tablet PO 12.5 mg BEDTIME ELIDA Administration Vitals/I&O/Wt Last Vital Signs Temp 97.9 F 10/26/21 15:30 Pulse 102 H 10/26/21 15:30 Resp 16 10/26/21 15:30 BP 165/81 10/26/21 15:30 Pulse Ox 96 10/26/21 15:30 10/26/21 10/26/21 10/26/21 06:59 14:59 22:59 Intake Total 250 / 2151.25 1120 / 1120 Output Total 1000 / 2800 1000 / 1000 875 / 1875 Balance -750 / -648.75 120 / 120 -875 / -755 Physical Exam Narrative: EXAM NARRATIVE: Awake, confused and disoriented. Averbal. No acute distress Moving all extremities. Does not follow instructions. Skin is warm and dry. Dry mucous membranes. Eyes PERRL, extraocular muscles are intact Neck no JVD. Lungs clear bilaterally. No respiratory distress Heart S1, S2, regular Abdomen soft, nontender, bowel sounds are present Extremities. Moves all extremities. No edema, cyanosis, calf tenderness bilaterally No facial asymmetry. Urinary Catheter Management^: Feliciano: Cath Placed During This Visit: yes Reason for Continuing Indwelling Catheter: Other Urinary Catheter Date of Insertion: 10/23/21 Urinary Catheter Time of Insertion: 22:36 Data : 10/26/21 04:48 10/26/21 04:48 Other Labs: Laboratory Results WBC 12.8 10^3/uL (4.0-10.0) H 10/26/21 04:48 RBC 4.36 10^6/uL (4.1-5.3) 10/26/21 04:48 Hgb 12.3 g/dL (11.5-15.3) 10/26/21 04:48 Hct 40.1 % (37.0-47.0) 10/26/21 04:48 MCV 92.0 fl (81-99) 10/26/21 04:48 MCH 28.2 pg (28.0-34.0) 10/26/21 04:48 MCHC 30.7 g/dL (30.0-36.0) 10/26/21 04:48 RDW 15.9 % (12.1-15.1) H 10/26/21 04:48 Plt Count 472 10^3/cmm (130-400) H 10/26/21 04:48 MPV 9.2 fL (7.4-10.4) 10/26/21 04:48 Neut % (Auto) 76.8 % 10/26/21 04:48 Lymph % (Auto) 10.8 % 10/26/21 04:48 Kimble % (Auto) 9.3 % 10/26/21 04:48 Eos % (Auto) 0.5 % 10/26/21 04:48 Baso % (Auto) 0.4 % 10/26/21 04:48 Neut # (Auto) 9.86 10^3/uL (1.8-7.7) H 10/26/21 04:48 Lymph # (Auto) 1.4 10^3/uL (0.8-4.8) 10/26/21 04:48 Kimble # (Auto) 1.2 10^3/uL (0.2-0.9) H 10/26/21 04:48 Eos # (Auto) 0.1 10^3/uL (0.0-0.8) 10/26/21 04:48 Baso # (Auto) 0.1 10^3/uL (0.0-0.1) 10/26/21 04:48 Nucleated RBC % (auto) 0 % 10/26/21 04:48 Nucleated RBCs # 0.0 /100WBC 10/26/21 04:48 Sodium 141 mmol/L (136-145) 10/26/21 04:48 Potassium 3.5 mmol/L (3.5-5.1) 10/26/21 04:48 Chloride 102 mmol/L (98-107) 10/26/21 04:48 Carbon Dioxide 24 mmol/L (22-29) 10/26/21 04:48 Anion Gap 18.5 (5-19) 10/26/21 04:48 BUN 17 mg/dL (8-23) 10/26/21 04:48 Creatinine 1.0 mg/dL (0.5-0.9) H 10/26/21 04:48 GFR Calculation Not Reportable 10/26/21 04:48 Glucose 106 mg/dL (65-115) 10/26/21 04:48 Calculated Osmolality 294 mOsm/kg (285-295) 10/26/21 04:48 Lactic Acid 1.4 mmol/L (0.5-2.2) 10/23/21 22:00 Calcium 8.2 mg/dL (8.5-10.5) L 10/26/21 04:48 Magnesium 2.0 mg/dL (1.7-2.3) 10/26/21 04:48 Total Bilirubin 0.2 mg/dL (0.15-1.2) 10/24/21 06:34 AST 15 U/L (0-32) 10/24/21 06:34 ALT 10 U/L (0-33) 10/24/21 06:34 Alkaline Phosphatase 139 IU/L (35-105) H 10/24/21 06:34 Total Protein 6.1 g/dL (6.6-8.7) L 10/24/21 06:34 Albumin 3.0 g/dL (3.5-5.2) L 10/24/21 06:34 Globulin 3.1 g/dL (1.3-4.6) 10/24/21 06:34 Procalcitonin 0.19 ng/mL (0-0.5) 10/24/21 06:34 TSH 48.20 uIU/mL (0.27-4.20) H 10/23/21 22:00 Free T4 0.76 ng/dL (0.82-1.77) L 10/23/21 22:00 Free T3 0.7 PG/ML (2.0-4.4) L 10/23/21 22:00 Urine Color Yellow (Yellow) 10/23/21 22:35 Urine Appearance Clear (CLEAR) 10/23/21 22:35 Urine pH 6 (5-7) 10/23/21 22:35 Ur Specific Saxon 1.010 (1.005-1.030) 10/23/21 22:35 Urine Protein Neg (Negative) 10/23/21 22:35 Urine Glucose (UA) Norm (Normal) 10/23/21 22:35 Urine Ketones 1+ (Negative) H 10/23/21 22:35 Urine Blood 2+ (Negative) H 10/23/21 22:35 Urine Nitrate Negative (Negative) 10/23/21 22:35 Urine Bilirubin Neg (Negative) 10/23/21 22:35 Urine Urobilinogen Norm mg/dL (Negative) 10/23/21 22:35 Ur Leukocyte Esterase Negative (Negative) 10/23/21 22:35 Urine RBC 10-15 /hpf (0-2) H 10/23/21 22:35 Urine WBC 15-25 /hpf (0-5) H 10/23/21 22:35 Ur Squamous Epith Cells 0-4 /hpf (0-5) H 10/23/21 22:35 Amorphous Sediment Not Reportable 10/23/21 22:35 Urine Bacteria Trace /hpf (NONE) 10/23/21 22:35 Hyaline Casts 0-4 /lpf H 10/23/21 22:35 Impressions Chest X-Ray 10/23/21 21:34 IMPRESSION: No acute cardiopulmonary abnormality. Head CT 10/23/21 21:34 IMPRESSION: No acute intracranial abnormality. Abdomen/Pelvis CT 10/24/21 00:17 IMPRESSION: 1. Negative for acute abdominopelvic pathology. 2. No cause of hematuria identified. Micro: Microbiology 10/23/21 22:35 Urine Culture - Final Urine Catheterized A&P Additional A&P Information Altered mental status. Probably multifactorial related to acute metabolic encephalopathy. Definitely UTI, hypothyroidism, and dehydration are contributing to worsening of her mental status. His baseline probably advanced dementia. We will continue gentle hydration. We will continue adjusted dose of Synthroid. We will continue management of UTI. Will discuss with the family regarding different options of maintaining her nutrition and hydration. Will order speech evaluation. Comfort care and hospice will need to be discussed as well. At this point her CODE STATUS is listed as full code. UTI. On Rocephin. Cultures are negative so far. Uncontrolled hypothyroidism probably due to not taking her medications. Continue adjusted dose of Synthroid Acute kidney injury probably secondary to dehydration secondary to decreased oral intake. Improved renal function with hydration. Continue monitoring. Hypokalemia. Will replace and monitor. DVT prophylaxis. On heparin. The plan of care was discussed with multidisciplinary team during morning rounds. Attestations Medical Necessity Statement*: We are continuing current plan of care Coding Level of Care Code Acute Computer Technologist for Zeferino Isidro
[2021-10-26] MEDS: potassium chloride premix 100 ML 50 MEQ IV (16:11)
[2021-10-26] MEDS: acetaminophen 325 mg Tablet 650 MG PO (17:21)
[2021-10-26 19:49] VITALS: BP 146/72; PULSE 95; RESP 16; TEMP 36.9; O2SAT 95
[2021-10-26] MEDS: quetiapine 25 mg Tablet 12.5 MG PO (20:37)
--- NOTE | 2021-10-26 23:44 | PC.NURSE ---
MN VS Is resting with eyes closed and appears asleep. Is usually talking to herself or having a conversation with noone in room. Daughter had told nurse that pt had not slept for days. Was not disturbed for VS at this time.
[2021-10-27] VITALS: BP 134/65; PULSE 86; RESP 17; TEMP 36.8; O2SAT 93
[2021-10-27] MEDS: cefTRIAXone 1,000 MG in sodium chloride 0.9% (plus) 50 ML 100 MG IV (01:21)
[2021-10-27] MEDS: heparin 5,000 unit/mL INJ 1 mL 5000 UNIT SUBCUT (04:05)
--- NOTE | 2021-10-27 05:26 | PC.NURSE ---
SHIFT SUMMARY Has rested better tonight and has appeared to sleep. When awake she is quite confused and hallucinate. Talks to herself and has conversations with people not in room. Has doll laying beside her in bed. Attempted to get OOB few times and gets legs between siderails. Bed alarm on for safety. IV infusing at 75ml/hr rate. Feliciano draining well. Has had no signs of pain.
[2021-10-27 06:03] LABS: Magnesium 1.9 mg/dL (1.7-2.3)
[2021-10-27 06:04] LABS: Albumin Level 2.8 g/dL (3.5-5.2); Anion Gap 15.5 (5-19); Blood Urea Nitrogen 16 mg/dL (8-23); Calcium 7.9 mg/dL (8.5-10.5); Carbon Dioxide 23 mmol/L (22-29); Chloride 105 mmol/L (98-107); Glucose 82 mg/dL (65-115); Phosphorus 2.8 mg/dL (2.5-4.5); Potassium 3.5 mmol/L (3.5-5.1); Sodium 140 mmol/L (136-145)
[2021-10-27 07:31] VITALS: BP 134/74; PULSE 72; RESP 16; TEMP 36.6; O2SAT 93
--- NOTE | 2021-10-27 10:51 | PC.SOCIAL ---
IMM Update Pg. 2 of IMM updated and reviewed with patient's daughter over the phone, who verbalized understanding. Copy provided at bedside.
--- NOTE | 2021-10-27 10:52 | PC.SLP ---
Attempted to see patient twice; she is unable to be awakened to participate in her evaluation. Nursing reported the patient had not slept for 3 days. Will continue to monitor and assessment patient when she is appropriate for evaluation.
[2021-10-27 11:21] VITALS: BP 142/70; PULSE 60; RESP 16; TEMP 36.4; O2SAT 92
--- NOTE | 2021-10-27 11:32 | P.DS_ITS ---
Discharge Providers Date of Admission: 10/24/21 17:26 Date of Discharge: October 27, 2021 Attending Provider at Admission: Nathan Eason Attending Provider at Discharge: Celestino Buchanan Primary Care Provider: Real Ambriz DO Diagnoses at Discharge Discharge Diagnosis (1) Altered mental status: Status: Acute (2) TSH elevation: Status: Acute Reason for Visit Reason for Visit: Hallucinating Hospital Course Hospital Course Discharge diagnosis and problem list Altered mental status. Probably multifactorial related to acute metabolic encephalopathy. UTI, hypothyroidism, and dehydration are contributing to worse ela of her mental status. His baseline probably advanced dementia. Her mental status improved with hydration. Received Rocephin for UTI. However cultures came back negative. Stopping Rocephin at discharge. Discussed with family patient's condition and outlook. Overall prognosis is not favorable due to advancing dementia. New complications are likely. The family understands. However they were hesitant with changing her CODE STATUS or with comfort/hospice care. The patient as of now remains full code. UTI. Cultures are negative. Stopping Rocephin. Uncontrolled hypothyroidism probably due to not taking her medications. Continue adjusted dose of Synthroid. TSH will need to be monitored regularly and the dose be adjusted. Acute kidney injury probably secondary to dehydration secondary to decreased oral intake. Improved renal function with hydration. Continue monitoring. Hypokalemia. Replaced. DVT prophylaxis. Received heparin. Physical Exam Narrative: EXAM NARRATIVE: Awake, confused and disoriented. Averbal. No acute distress Moving all extremities. Does not follow instructions. Skin is warm and dry. Moist mucous membranes. Eyes PERRL, extraocular muscles are intact Neck no JVD. Lungs clear bilaterally. No respiratory distress Heart S1, S2, regular Abdomen soft, nontender, bowel sounds are present Extremities. Moves all extremities. No edema, cyanosis, calf tenderness bilaterally No facial asymmetry. Urinary Catheter Management^: Feliciano: Cath Placed During This Visit: yes Reason for Continuing Indwelling Catheter: Other Urinary Catheter Date of Insertion: 10/23/21 Urinary Catheter Time of Insertion: 22:36 Discharge Data Data Completed and Pending: Completed Studies During Hospitalization Category Date Time Status CT head wo con* [id number] [id number] Urgent Cat Scan 10/23/21 21:[address] kidney stone [id number] Urgent Cat Scan 10/24/21 00:17 Completed XR chest 1V catarino ble [id number] Urgent Exams 10/23/21 21:34 Completed Pending at discharge Category Date Time Status Blood Culture Sta t Lab 10/23/21 22:00 Results COVID OZH [Bond virus PCR] Routine Lab 10/27/21 10:35 Received Labs from last 24 hours 10/27/21 10/27/21 10/27/21 10:35 04:42 04:42 Sodium 140 Potassium 3.5 Chloride 105 Carbon Dioxide 23 Anion Gap 15.5 BUN 16 Creatinine 0.9 GFR Calculation Not Reportable Glucose 82 Calcium 7.9 L Phosphorus 2.8 Magnesium 1.9 Albumin 2.8 L Coronavirus 229E ( PCR) Pending SARS-CoV-2 (PCR) Pending Vitals: Last Vital Signs Temp 97.6 F 10/27/21 11:21 Pulse 60 10/27/21 11:21 Resp 16 10/27/21 11:21 BP 142/70 10/27/21 11:21 Pulse Ox 92 10/27/21 11:21 Discharge Plan Discharge Patient Disposition: Xfer SNF Condition: Stable Prescriptions: New levothyroxine 137 mcg Tablet 137 mcg PO DAILY Qty: 30 RF: 0 Continued aspirin 325 mg Tablet 325 mg PO PRN RF: 0 acetaminophen 500 mg Tablet 500 - 1,000 mg PO Q4H PRN (Reason: Pain) RF: 0 Discontinued levothyroxine [Euthyrox] 75 mcg tablet 75 mcg PO QAM RF: 0 ibuprofen 200 mg Tablet 800 mg PO Q6H PRN (Reason: Pain) RF: 0 levofloxacin 750 mg tablet 750 mg PO DAILY RF: 0 duloxetine 30 mg capsule,delayed release(DR/EC) 30 mg PO QPM RF: 0 Leg Cramp Relief Capsule 1 cap PO PRN PRN (Reason: Pain) RF: 0 Discharge Orders: Discharge Order (Routine); Ordered 10/27/21 Ordered By: Celestino Buchanan Other Ambulatory Orders: Basic Metabolic Panel (Routine) Timeframe: 2 Weeks Facility: [facility] - Location: Lab - Main Lab Ordered By: Celestino Buchanan Thyroid Stimulating Hormone (Routine) Timeframe: 2 Weeks Facility: [facility] - Location: Lab - Main Lab Ordered By: Celestino Buchanan Referrals: Real Ambriz DO [Primary Care Provider] - Discharge Diet: Advance as tolerated Discharge Activity: Increase activity as tolerated Discharge Attestations Time Spent in Discharge Care*: greater than 30 min Quality Metrics Clinical Quality Measures During this hospital stay, did patient experience: None Coding Level of Care Code Acute Chg FW DC note Diagnoses Altered mental status R41.82 TSH elevation R79.89
[2021-10-27 14:02] VITALS: BP 142/70; PULSE 60; RESP 16; TEMP 36.4; O2SAT 92
[2021-10-29 09:33] LABS: Quest SARS-CoV-2 RNA NOT DETECTED (NOT DETECTED)
== END 2021-10-27 12:55 | disposition skilled nursing facility (03) | DRG 689 ==
LOC: ER 10-24 01:18 → MEDSURG 10-24 01:45
PROVIDERS: Internal Medicine; Admitting Provider Hospitalist; Emergency Provider Physician Assistant; PCP Internal Medicine; Visit Provider Internal Medicine
DX: N39.0 Urinary tract infection, site not specified (principal); G93.41 Metabolic encephalopathy; N17.9 Acute kidney failure, unspecified; E03.9 Hypothyroidism, unspecified; E86.0 Dehydration; E87.6 Hypokalemia; G30.9 Alzheimer's disease, unspecified; F02.80 Dementia in other diseases classified elsewhere, unspecified severity, without behavioral disturbance, psychotic disturbance, mood disturbance, and anxiety; I10 Essential (primary) hypertension; Z87.440 Personal history of urinary (tract) infections; Z91.81 History of falling
CPT/HCPCS: 36415; 51702; 70450; 71045; 74176; 80048; 80053; 80069; 81001; 83605; 83735; 84145; 84439; 84443; 84481; 85025; 87040; 87086; 87635; 96365; 96372; 97161; 97165; 97530; 97535; 99291; 99292; G0378; J0696; J1644; J3480; J3486; J7030

== ENCOUNTER 2023-04-01 02:42 | Inpatient (IN) | payer MEDICARE, MEDICAID, SELFPAY ==
[2023-04-01] VITALS (36 sets, daily range): BP systolic 109–227; BP diastolic 53–121; PULSE 59–102; RESP 12–22; TEMP 36.1–36.8; O2SAT 92–99; BMI 20.4
--- NOTE | 2023-04-01 02:43 | ED_ITS ---
HPI - Fall General: Chief Complaint: Fall Stated Complaint: FALL Time Seen by Provider: 04/01/23 02:43 Limitations: altered mental status History of Present Illness: Presents from senior care via EMS for unwitnessed fall. Apparently staff heard her fall. Reported to them right hip pain and has skin tear on the right arm however patient has baseline dementia and history significantly limited. Review of Systems General: Reports: ROS unobtainable due to mental status PFSH ED PFSH: Medical History C1 cervical fracture Closed hip fracture Dementia Displaced fracture of right femoral neck Fall Hypertension Hypothyroidism No pertinent family history Skin tear Urinary retention UTI (urinary tract infection) Surgical History No pertinent past surgical history Status post right hip replacement Social History Smoking and tobacco status: never smoked Physical Exam Const: COMMON NORMALS: alert GENERAL APPEARANCE: cooperative and well developed HENMT: COMMON NORMALS: normocephalic and atraumatic HEAD & SCALP: normocephalic and atraumatic THROAT: posterior oropharynx normal OTHER: No guido signs or raccoon eyes. No hemotympanum. No otorrhea or rhinorrhea. Jaw alignment normal. Dentition baseline. No obvious bony step-offs. No septal hematoma. No evidence of ocular entrapment. Eye: COMMON NORMALS: conjunctivae normal CONJUNCTIVA: Yes conjunctivae normal SCLERA: sclerae normal Neck/C-Spine: COMMON NORMALS: supple GENERAL: Yes trachea midline Resp: COMMON NORMALS: normal respiratory effort EFFORT & INSPECTION: Yes able to speak in complete sentences Cardio: COMMON NORMALS: regular rate and regular rhythm RATE: regular rate RHYTHM: regular rhythm GI: COMMON NORMALS: Soft to palpation PALPATION: Yes Soft to palpation, Yes Tenderness to palpation present (GI), No Guarding due to palpation present (GI) and No Rigid due to palpation Extremity: NARRATIVE EXTREMITY EXAM: R hip ttp with limited ROM, distal CMS intact, no open wounds GENERAL: Yes normal exam except as noted and No edema Neuro: COMMON NORMALS: moves all extremities SENSORIUM/ORIENTATION: Yes alert and Yes Orientation impaired Psych: MEMORY/COGNITION: Yes memory grossly impaired Course Vital Signs: Vital signs: Vital Signs Temperature 98.0 F 04/04/23 12:00 Pulse Rate 93 04/04/23 12:00 Respiratory Rate 17 04/04/23 12:00 Blood Pressure 134/58 04/04/23 12:00 Pulse Oximetry 95 04/04/23 12:00 Oxygen Delivery Me thod Room Air 04/04/23 12:00 MDM - Fall Medical Decision Making 88-year-old lady with history of dementia presenting due to fall. Head to toe exam performed. EKG notable for sinus rhythm with first-degree AV block, normal axis, no STEMI. Labs with no significant hematologic or metabolic abnormalities with exception of mildly elevated creatinine. Coags normal. Head and cervical spine CT head negative for acute pathology. Chest abdomen pelvis CT with cervical right femur fracture. Numerous incidental findings discussed with patient and family. Femur negative with exception of known fracture, no humerus fracture. Patient treated with analgesia. Orthopedic service consulted. The results of ED evaluation were discussed with the patient including plan for admission due to requirement for level of care not available if discharged to prevent significant worsening/deterioration. Patient agreeable with plan. Discussed with hospitalist service who was agreeable to admit patient. Lab Data 04/04/23 04:43 04/04/23 04:43 Radiology Impressions Cervical Spine CT 04/01/23 02:50 IMPRESSION: 1. 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 2. Healed partial union or nonunion of right paramedian anterior C1 arch fracture. Chest/Abdomen/Pelvis CT 04/01/23 02:50 IMPRESSION: 1. No evidence of injury to intrathoracic organs. 2. No acute fracture in the thorax. 3. A moderate-sized hiatal hernia. 4. Extensive atherosclerotic plaques throughout the thoracic aorta without aneurysm. IMPRESSION: 1. Mildly displaced high cervical fracture of the right femur. 2. Severe chronic compression fracture of T12 and moderate chronic compression fracture of L1 without significant central spinal canal stenosis. 3. Severe peripheral vascular disease with a patent stent at the origin of the right main renal artery. 4. Additional non emergent findings are stated in the body of the report. ADDENDUM: 04/01/23 0508 THIS REPORT CONTAINS FINDINGS THAT MAY BE CRITICAL TO PATIENT CARE. The findings were verbally communicated via telephone conference with Khris Yoder at 5:07 AM CDT on 04/01/2023. The findings were acknowledged and understood. Head CT 04/01/23 02:50 IMPRESSION: No acute intracranial findings. Hip/Pelvis X-Ray 04/01/23 02:50 IMPRESSION: High cervical fracture of the right femur with superior displacement of the major distal fragment. Humerus X-Ray 04/01/23 02:50 IMPRESSION: 1. No acute fracture or dislocation. 2. Soft tissue swelling/hematoma of the mid to proximal arm. Chest X-Ray 04/01/23 03:15 IMPRESSION: 1. No acute findings. 2. Mild pulmonary hyperinflation as seen in COPD. 3. Bilateral apical pleuroparenchymal scarring. 4. A moderate-sized hiatal hernia, better seen on the concomitant CT scan of the chest. Femur X-Ray 04/01/23 03:28 IMPRESSION: Displaced high cervical fracture of the right femur. Laboratory Results WBC 6.0 10^3/uL (4.0-10.0) 04/01/23 02:57 RBC 4.25 10^6/uL (4.1-5.3) 04/01/23 02:57 Hgb 11.8 g/dL (11.5-15.3) 04/01/23 02:57 Hct 38.1 % (37.0-47.0) 04/01/23 02:57 MCV 89.6 fl (81-99) 04/01/23 02:57 MCH 27.8 pg (28.0-34.0) L 04/01/23 02:57 MCHC 31.0 g/dL (30.0-36.0) 04/01/23 02:57 RDW 14.1 % (12.1-15.1) 04/01/23 02:57 Plt Count 239 10^3/cmm (130-400) 04/01/23 02:57 MPV 9.7 fL (7.4-10.4) 04/01/23 02:57 Neut % (Auto) 39.1 % 04/01/23 02:57 Lymph % (Auto) 38.0 % 04/01/23 02:57 [place] % (Auto) 11.9 % 04/01/23 02:57 Eos % (Auto) 9.0 % 04/01/23 02:57 Baso % (Auto) 0.7 % 04/01/23 02:57 Neut # (Auto) 2.34 10^3/uL (1.8-7.7) 04/01/23 02:57 Lymph # (Auto) 2.3 10^3/uL (0.8-4.8) 04/01/23 02:57 [place] # (Auto) 0.7 10^3/uL (0.2-0.9) 04/01/23 02:57 Eos # (Auto) 0.5 10^3/uL (0.0-0.8) 04/01/23 02:57 Baso # (Auto) 0.0 10^3/uL (0.0-0.1) 04/01/23 02:57 Nucleated RBC % (auto) 0 % 04/01/23 02:57 Nucleated RBCs # 0.0 /100WBC 04/01/23 02:57 PT 12.90 SECONDS (12.1-14.9) 04/01/23 02:57 INR 0.94 (0.8-1.2) 04/01/23 02:57 APTT 29.8 SECONDS (23.9-36.7) 04/01/23 02:57 Sodium 138 mmol/L (136-145) 04/01/23 02:57 Potassium 4.0 mmol/L (3.5-5.1) 04/01/23 02:57 Chloride 102 mmol/L (98-107) 04/01/23 02:57 Carbon Dioxide 24 mmol/L (22-29) 04/01/23 02:57 Anion Gap 16.0 (5-19) 04/01/23 02:57 BUN 33 mg/dL (8-23) H 04/01/23 02:57 Creatinine 1.3 mg/dL (0.5-0.9) H 04/01/23 02:57 GFR Calculation Not Reportable 04/01/23 02:57 Glucose 109 mg/dL (65-115) 04/01/23 02:57 Calculated Osmolality 294 mOsm/kg (285-295) 04/01/23 02:57 Calcium 9.1 mg/dL (8.5-10.5) 04/01/23 02:57 Total Bilirubin 0.2 mg/dL (0.15-1.2) 04/01/23 02:57 AST 22 U/L (0-32) 04/01/23 02:57 ALT 10 U/L (0-33) 04/01/23 02:57 Alkaline Phosphatase 92 U/L (35-105) 04/01/23 02:57 Total Protein 7.1 g/dL (6.6-8.7) 04/01/23 02:57 Albumin 4.0 g/dL (3.5-5.2) 04/01/23 02:57 Globulin 3.1 g/dL (1.3-4.6) 04/01/23 02:57 TSH 1.91 uIU/mL (0.27-4.20) 04/01/23 02:17 Blood Type A Positive 04/01/23 04:16 Rho(D) Type Positive 04/01/23 04:16 Antibody Screen Negative 04/01/23 04:16 Discharge Plan Discharge Patient Disposition: Admitted As Inpatient Admit Provider: Carole Arias Clinical Impression: Closed hip fracture, Fall, Skin tear Condition: Stable Coding Level of Care Code ED Community Relations Specialist for Zeferino Isidro
--- NOTE | 2023-04-01 02:50 | CTR_ITS ---
PROCEDURE INFORMATION: Exam: CT Head Without Contrast Exam date and time: 04/01/2023 3:41 AM Age: 88 years old Clinical indication: Injury or trauma; Blunt trauma (contusions or hematomas); Patient HX: Unwitnessed fall at detention. History of dementia. ; Additional info: Fall, AMS TECHNIQUE: Imaging protocol: Computed tomography of the head without contrast. Radiation optimization: All CT scans at this facility use at least one of these dose optimization techniques: automated exposure control; mA and/or kV adjustment per patient size (includes targeted exams where dose is matched to clinical indication); or iterative reconstruction. REPORTING DATA: Count of CT and Cardiac NM exams in prior 12 months: This patient has received 0 known CTs and 0 known cardiac nuclear medicine studies in the 12 months prior to the current study. COMPARISON: CT head wo con* [id number] 10/23/2021 9:43 PM RADIATION DOSE METRICS: Total DLP (mGy-cm): 1070.66 FINDINGS: Brain: Severe calcified intracranial atherosclerotic vessel disease. Mild to moderate cerebral atrophy and ischemic leukoencephalopathy. Cerebral ventricles: No ventriculomegaly. Paranasal sinuses: Visualized sinuses are unremarkable. No fluid levels. Mastoid air cells: Visualized mastoid air cells are well aerated. Bones/joints: Unremarkable. No acute fracture. Soft tissues: Unremarkable. CT/CT head wo con* [id number] IMPRESSION: No acute intracranial findings.
--- NOTE | 2023-04-01 02:50 | CTR_ITS ---
PROCEDURE INFORMATION: Exam: CT Chest With Contrast; Diagnostic Exam date and time: 04/01/2023 3:48 AM Age: 88 years old Clinical indication: Injury or trauma; Generalized; Blunt trauma (contusions or hematomas); Prior surgery; Surgery date: 6+ months; Surgery type: Left shoulder; Patient HX: Unwitnessed fall at senior living. ; Additional info: Fall, AMS TECHNIQUE: Imaging protocol: Diagnostic computed tomography of the chest with contrast. Radiation optimization: All CT scans at this facility use at least one of these dose optimization techniques: automated exposure control; mA and/or kV adjustment per patient size (includes targeted exams where dose is matched to clinical indication); or iterative reconstruction. Contrast material: OMNI 350; Contrast volume: 75 ml; Contrast route: INTRAVENOUS (IV); REPORTING DATA: Count of CT and Cardiac NM exams in prior 12 months: This patient has received 0 known CTs and 0 known cardiac nuclear medicine studies in the 12 months prior to the current study. COMPARISON: CT chest abd pel w con* 10/14/2021 9:32 PM RADIATION DOSE METRICS: Total DLP (mGy-cm): 460.7 FINDINGS: Lungs: There is no evidence of focal pulmonary consolidation. There are pleuroparenchymal scarring and bronchiectatic changes at the bilateral lung apices. There are mild bilateral dependent atelectatic changes of the lower lobes. Pleural spaces: Unremarkable. No pneumothorax. No pleural effusion. Heart: There are no pericardial fluid collections. Coronary arteries: There is moderate atherosclerotic calcification of the coronary arteries. Esophagus: No esophageal thickening. Mediastinal space: There are no enlarged mediastinal lymph nodes or masses. Lymph nodes: There are no enlarged hilar lymph nodes. Vasculature: There is no thoracic aortic aneurysm or dissection. The visualized central pulmonary arteries appear unremarkable. There are extensive atherosclerotic calcifications scattered throughout the thoracic aorta. There is no evidence of pulmonary embolus in the large central and segmental pulmonary arteries. Evaluation of the smaller peripheral branches is limited by motion artifact and technical factors. Diaphragm: There is a moderate-sized hiatal hernia. Liver: No enhancing masses are seen. Bones/joints: No acute fracture. There is partially visualized orthopedic hardware transfixing the left humeral head. Soft tissues: Unremarkable. PROCEDURE INFORMATION: Exam: CT Abdomen And Pelvis With Contrast Exam date and time: 04/01/2023 3:48 AM Age: 88 years old Clinical indication: Injury or trauma; Generalized; Blunt trauma (contusions or hematomas); Prior surgery; Surgery date: 6+ months; Surgery type: Left shoulder; Patient HX: Unwitnessed fall at senior living. ; Additional info: Fall, AMS TECHNIQUE: Imaging protocol: Computed tomography of the abdomen and pelvis with contrast. Radiation optimization: All CT scans at this facility use at least one of these dose optimization techniques: automated exposure control; mA and/or kV adjustment per patient size (includes targeted exams where dose is matched to clinical indication); or iterative reconstruction. Contrast material: OMNI 350; Contrast volume: 75 ml; Contrast route: INTRAVENOUS (IV); REPORTING DATA: Count of CT and Cardiac NM exams in prior 12 months: This patient has received 0 known CTs and 0 known cardiac nuclear medicine studies in the 12 months prior to the current study. COMPARISON: CT kidney stone [id number] 10/24/2021 12:26 AM RADIATION DOSE METRICS: Total DLP (mGy-cm): 460.7 FINDINGS: Lungs: Bibasilar dependent atelectatic changes. Diaphragm: A moderate-sized hiatal hernia. Liver: No hepatomegaly. There are no enhancing liver masses. Gallbladder and bile ducts: No calcified stones. No ductal dilation. Pancreas: Normal in size and homogeneous enhancement. No ductal dilation. Spleen: Normal. No splenomegaly. Adrenal glands: Normal. No mass. Kidneys and ureters: There is no hydronephrosis. No renal or obstructive ureteral calculi are identified. Stomach and bowel: There is no evidence of small bowel or colonic obstruction. Appendix: A normal appendix is identified. Intraperitoneal space: No free air. No significant fluid collection. Vasculature: Extensive atherosclerotic calcification of the abdominal aorta and its branches without aneurysm. There is a patent stent in the right main renal artery. There is a severely diseased and severely calcified both proximally patent SMA. The celiac trunk is patent but severe disease at the origin. Lymph nodes: No enlarged retroperitoneal or mesenteric lymph nodes. Urinary bladder: There is a Feliciano catheter in the urinary bladder that still contains a small amount of urine. Moderate fecal stasis throughout the colon consistent with constipation. Reproductive: Unremarkable as visualized. Bones/joints: Severe dextroconvex rotoscoliosis of the lumbar spine. There is severe chronic compression fracture of T12 and moderate chronic compression fracture of L1, unchanged from comparison. There is diffuse osseous demineralization. There is a high cervical fracture of the right femur with mild superior translation of the major distal fragment. Soft tissues: Normal. CT/CT chest abdpel w/*[id number] IMPRESSION: 1. No evidence of injury to intrathoracic organs. 2. No acute fracture in the thorax. 3. A moderate-sized hiatal hernia. 4. Extensive atherosclerotic plaques throughout the thoracic aorta without aneurysm. IMPRESSION: 1. Mildly displaced high cervical fracture of the right femur. 2. Severe chronic compression fracture of T12 and moderate chronic compression fracture of L1 without significant central spinal canal stenosis. 3. Severe peripheral vascular disease with a patent stent at the origin of the right main renal artery. 4. Additional non emergent findings are stated in the body of the report.
--- NOTE | 2023-04-01 02:50 | CTR_ITS ---
PROCEDURE INFORMATION: Exam: CT Cervical Spine Without Contrast Exam date and time: 04/01/2023 3:44 AM Age: 88 years old Clinical indication: Injury or trauma; Blunt trauma; Patient HX: Unwitnessed fall at shelter. History of c1 fracture. ; Additional info: Fall, AMS TECHNIQUE: Imaging protocol: Computed tomography of the cervical spine without contrast. Radiation optimization: All CT scans at this facility use at least one of these dose optimization techniques: automated exposure control; mA and/or kV adjustment per patient size (includes targeted exams where dose is matched to clinical indication); or iterative reconstruction. REPORTING DATA: Count of CT and Cardiac NM exams in prior 12 months: This patient has received 0 known CTs and 0 known cardiac nuclear medicine studies in the 12 months prior to the current study. COMPARISON: CT cervical spin wo con* [id number] 10/14/2021 9:28 PM RADIATION DOSE METRICS: Total DLP (mGy-cm): 124.57 FINDINGS: Bones/joints: Moderate to severe multilevel spine degenerative changes including degenerative disc disease, spondylosis and facet degenerative changes. Dextroscoliosis. 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 Healed partial union or nonunion of right paramedian anterior C1 arch fracture. Lungs: Lung apices are normal. Soft tissues: Unremarkable. CT/CT cervical spin wo con* [id number] IMPRESSION: 1. 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 2. Healed partial union or nonunion of right paramedian anterior C1 arch fracture.
--- NOTE | 2023-04-01 02:50 | ECG_ITS ---
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 Measurements Intervals [place] Rate: 97 P: 82 GA: 218 QRS: 71 QRSD: 97 T: 73 QT: 348 QTc: 442 Interpretive Statements SINUS RHYTHM WITH FIRST DEGREE AV BLOCK INCOMPLETE RIGHT BUNDLE BRANCH BLOCK [90+ ms QRS DURATION, TERMINAL R IN V1/V2, 40+ ms S IN I/aVL/V4/V5/V6] Compared to ECG 10/14/2021 19:29:42 First degree AV block now present Electronically Signed On 04-01-2023 8:30:50 CDT by Chris García M.D. [id number]
--- NOTE | 2023-04-01 02:50 | XRR_ITS ---
PROCEDURE INFORMATION: Exam: XR Right Hip Exam date and time: 04/01/2023 2:55 AM Age: 88 years old Clinical indication: Injury or trauma; Blunt trauma (contusions or hematomas); Right; Patient HX: Unwitnessed fall at skilled nursing. PT C/O focal pain to RT hip. ; Additional info: Fall, pain TECHNIQUE: Imaging protocol: Radiologic exam of the right hip. Views: 1 view hip with pelvis when performed. COMPARISON: CT kidney stone [id number] 10/24/2021 12:26 AM FINDINGS: Bones/joints: There is normal alignment of the bony structures and the joint spaces are preserved. There is an acute high cervical fracture of the right femur with superior displacement of the major distal fragment. The right pelvic ring appears intact. There are no aggressive bone lesions. Soft tissues: No radiopaque foreign bodies are seen. Intraperitoneal space: There are extensive vascular calcifications in the pelvis. XR/XR hip RT 2-3V wo/w pel* [id number] IMPRESSION: High cervical fracture of the right femur with superior displacement of the major distal fragment.
--- NOTE | 2023-04-01 02:50 | XRR_ITS ---
PROCEDURE INFORMATION: Exam: XR Right Humerus Exam date and time: 04/01/2023 2:55 AM Age: 88 years old Clinical indication: Injury or trauma; Blunt trauma (contusions or hematomas); Arm, upper; Right; Patient HX: Unwitnessed fall at long-term. Skin tear across bicep. ; Additional info: Fall, skin tear, pain TECHNIQUE: Imaging protocol: Radiologic exam of the right humerus. Views: 2 or more views. COMPARISON: CR XR chest 1V portable [id number] 10/23/2021 9:38 PM FINDINGS: Bones/joints: The right humerus maintains anatomic alignment at the shoulder and elbow joints. There is no acute fracture. There are no aggressive bone lesions. Soft tissues: There is increased density in the subcutaneous soft tissues of the mid to upper arm that may be secondary to hematoma. No radiopaque foreign bodies. XR/[place] [id number] IMPRESSION: 1. No acute fracture or dislocation. 2. Soft tissue swelling/hematoma of the mid to proximal arm.
[2023-04-01 03:04] LABS: Basophils % 0.7 %; Eosinophils # 0.5 10^3/uL (0.0-0.8); Hematocrit 38.1 % (37.0-47.0); Hemoglobin 11.8 g/dL (11.5-15.3); Lymphocytes # 2.3 10^3/uL (0.8-4.8); Mean Corpuscular Hemoglobin 27.8 pg (28.0-34.0); Mean Corpuscular Volume 89.6 fl (81-99); Mean Platelet Volume 9.7 fL (7.4-10.4); Monocytes # 0.7 10^3/uL (0.2-0.9); Monocytes % 11.9 %; Neutrophils # 2.34 10^3/uL (1.8-7.7); Neutrophils % 39.1 %; Nucleated Red Blood Cells % 0 %; Platelet Count 239 10^3/cmm (130-400); Red Blood Count 4.25 10^6/uL (4.1-5.3); Red Cell Distribution Width 14.1 % (12.1-15.1)
--- NOTE | 2023-04-01 03:15 | XRR_ITS ---
PROCEDURE INFORMATION: Exam: XR Chest Exam date and time: 04/01/2023 3:13 AM Age: 88 years old Clinical indication: Injury or trauma; Blunt trauma (contusions or hematomas); Patient HX: [facility]ed fall at [facility]. Pre op for fracture. ; Additional info: Hip FX TECHNIQUE: Imaging protocol: Radiologic exam of the chest. Views: 1 view. COMPARISON: CR XR chest 1V portable [id number] 10/23/2021 9:38 PM FINDINGS: Lungs: There is no evidence of focal pulmonary consolidation. There is bilateral apical pleuroparenchymal scarring. There is mild pulmonary hyperinflation. Pleural spaces: No pleural effusion or pneumothorax. Heart/Mediastinum: The heart and mediastinum are normal in size. There is extensive atherosclerotic calcification of the thoracic aorta. Moderate-sized hiatal hernia. Bones/joints: Partially visualized orthopedic hardware in the proximal left humerus. No acute fracture. XR/XR chest 1V portable [id number] IMPRESSION: 1. No acute findings. 2. Mild pulmonary hyperinflation as seen in COPD. 3. Bilateral apical pleuroparenchymal scarring. 4. A moderate-sized hiatal hernia, better seen on the concomitant CT scan of the chest.
[2023-04-01] MEDS: morphine 4 mg/mL SDV 1 mL 2 MG IVP ×3 (03:18→17:52)
[2023-04-01 03:26] LABS: Alanine Aminotransferase 10 U/L (0-33); Alkaline Phosphatase 92 U/L (35-105); Aspartate Amino Transferase 22 U/L (0-32); Blood Urea Nitrogen 33 mg/dL (8-23); Calcium 9.1 mg/dL (8.5-10.5); Carbon Dioxide 24 mmol/L (22-29); Chloride 102 mmol/L (98-107); Globulin 3.1 g/dL (1.3-4.6); Glucose 109 mg/dL (65-115); Osmolality Calculated 294 mOsm/kg (285-295); Sodium 138 mmol/L (136-145); Total Bilirubin 0.2 mg/dL (0.15-1.2); Total Protein 7.1 g/dL (6.6-8.7)
--- NOTE | 2023-04-01 03:28 | XRR_ITS ---
PROCEDURE INFORMATION: Exam: XR Right Femur Exam date and time: 04/01/2023 3:31 AM Age: 88 years old Clinical indication: Injury or trauma; Blunt trauma; Right; Patient HX: Unwitnessed fall at [facility]. C/O RT hip pain. ; Additional info: Prox FX TECHNIQUE: Imaging protocol: Radiologic exam of the right femur. Views: 2 views. COMPARISON: CR (PELVIS, ) 04/01/2023 2:55 AM FINDINGS: Bones/joints: There is a high cervical fracture of the right femur with superior displacement of the major distal fragment. The femoral head maintains alignment with the acetabulum. There is normal alignment at the right knee. There are no aggressive bone lesions. Soft tissues: No radiopaque foreign body. Vasculature: Extensive vascular calcification of the right femoral arteries is noted. XR/XR femur RT min 2V* [id number] IMPRESSION: Displaced high cervical fracture of the right femur.
[2023-04-01] MEDS: iohexol 350 mg/mL 500 mL Btl (per mL) IV (04:02)
[2023-04-01 04:03] LABS: INR 0.94 (0.8-1.2)
[2023-04-01 04:04] LABS: Partial Thromboplastin Time 29.8 SECONDS (23.9-36.7)
[2023-04-01] MEDS: morphine 4 mg/mL SDV 1 mL IVP (04:19)
[2023-04-01] MEDS: acetaminophen 1,000 MG/100 ML PIGGYBACK 400 MG IV (04:23)
[2023-04-01] MEDS: sodium chloride 0.9% 1,000 ML 75 ML IV ×2 (06:18→13:38)
--- NOTE | 2023-04-01 06:58 | PM.HP ---
Providers/Chief Complaint Admitting Physician: Carole Arias MD Primary Care Provider: Real Ambriz DO Chief Complaint: FALL History of Present Illness Adelaide Miller is a 88 year old female with dementia, currently a assisted resident, presenting to the emergency room with fall sustained at the assisted in unclear circumstances. It is believed she may have been trying to get out of bed to go to the bathroom. She was found on the floor. She did not lose consciousness. She has been found to have a mildly displaced high cervical fracture of the right femur and chronic compression fracture of T12. Incidental note made of severe peripheral vascular disease within a patent stent at the origin of the right main renal artery. Her daughter is currently at bedside and denies any recent fever or chills. Patient is prone to getting recurrent UTIs and yesterday had complained of some dysuria. She was found to have urinary retention today. Placement of a Feliciano catheter immediately drained 1400 cc of urine from the bladder. Review of Systems General: Reports: ROS unobtainable due to medical condition (Advanced dementia) Medications/Allergies Home Medications Medication Instructions Recorded Confirmed Last Taken Type acetaminophen 500 mg tablet 500 - 1,000 mg PO Q4H PRN Pain 10/24/21 10/24/21 Unknown History aspirin 325 mg tablet 325 mg PO PRN 10/24/21 10/24/21 Unknown History levothyroxine 137 mcg tablet 137 mcg PO DAILY #30 tabs 10/27/21 Unknown Rx Allergies Allergy/AdvReac Type Severity Reaction Status Date / Time No Known Allergies Allergy Verified 10/23/21 21:21 PFSH Acute PFSH: Medical History (Updated 04/01/23 @ 07:18 by Carole Arias MD) C1 cervical fracture Dementia Hypertension Hypothyroidism No pertinent family history Surgical History No pertinent past surgical history Social History Smoking and tobacco status: never smoked Vitals/I&O/Wt Last Vital Signs Temp 97.8 F 04/01/23 06:52 Pulse 84 04/01/23 06:52 Resp 15 04/01/23 06:52 BP 158/72 04/01/23 06:52 Pulse Ox 95 04/01/23 06:52 O2 Del Method Room Air 04/01/23 06:52 03/31/23 03/31/23 04/01/23 14:59 22:59 06:59 Intake Total 100 / 100 Balance 100 / 100 Weight last 48 hrs Weight 48.988 kg Physical Exam Narrative: General: No acute distress, AO x1-2, extremely hard of hearing, overall frail appearing elderly lady HEENT: PERRLA, pupils bilaterally equal and reactive, pallors not present Chest: Normal vesicular breath sounds, no added sounds, equal good air entry bilaterally CVS: S1-S2 regular, no murmurs, no tachycardia, no gallops, no rubs Abdomen: Soft, nontender, no organomegaly, bowel sounds present Neuro: No focal deficits, moving all extremities in bed except right leg which is the fracture site. Urinary Catheter Management: Feliciano: Cath Placed During This Visit: yes Reason for Continuing Indwelling Catheter: Perioperative Use in Selected Surgeries Urinary Catheter Date of Insertion: 04/01/23 Urinary Catheter Time of Insertion: 03:25 Data 04/01/23 02:57 04/01/23 02:57 Other Labs: Radiology Impressions Cervical Spine CT 04/01/23 02:50 IMPRESSION: 1. 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 2. Healed partial union or nonunion of right paramedian anterior C1 arch fracture. Chest/Abdomen/Pelvis CT 04/01/23 02:50 IMPRESSION: 1. No evidence of injury to intrathoracic organs. 2. No acute fracture in the thorax. 3. A moderate-sized hiatal hernia. 4. Extensive atherosclerotic plaques throughout the thoracic aorta without aneurysm. IMPRESSION: 1. Mildly displaced high cervical fracture of the right femur. 2. Severe chronic compression fracture of T12 and moderate chronic compression fracture of L1 without significant central spinal canal stenosis. 3. Severe peripheral vascular disease with a patent stent at the origin of the right main renal artery. 4. Additional non emergent findings are stated in the body of the report. ADDENDUM: 04/01/23 0508 THIS REPORT CONTAINS FINDINGS THAT MAY BE CRITICAL TO PATIENT CARE. The findings were verbally communicated via telephone conference with Khris Yoder at 5:07 AM CDT on 04/01/2023. The findings were acknowledged and understood. Head CT 04/01/23 02:50 IMPRESSION: No acute intracranial findings. Hip/Pelvis X-Ray 04/01/23 02:50 IMPRESSION: High cervical fracture of the right femur with superior displacement of the major distal fragment. Humerus X-Ray 04/01/23 02:50 IMPRESSION: 1. No acute fracture or dislocation. 2. Soft tissue swelling/hematoma of the mid to proximal arm. Chest X-Ray 04/01/23 03:15 IMPRESSION: 1. No acute findings. 2. Mild pulmonary hyperinflation as seen in COPD. 3. Bilateral apical pleuroparenchymal scarring. 4. A moderate-sized hiatal hernia, better seen on the concomitant CT scan of the chest. Femur X-Ray 04/01/23 03:28 IMPRESSION: Displaced high cervical fracture of the right femur. Laboratory Results WBC 6.0 10^3/uL (4.0-10.0) 04/01/23 02:57 RBC 4.25 10^6/uL (4.1-5.3) 04/01/23 02:57 Hgb 11.8 g/dL (11.5-15.3) 04/01/23 02:57 Hct 38.1 % (37.0-47.0) 04/01/23 02:57 MCV 89.6 fl (81-99) 04/01/23 02:57 MCH 27.8 pg (28.0-34.0) L 04/01/23 02:57 MCHC 31.0 g/dL (30.0-36.0) 04/01/23 02:57 RDW 14.1 % (12.1-15.1) 04/01/23 02:57 Plt Count 239 10^3/cmm (130-400) 04/01/23 02:57 MPV 9.7 fL (7.4-10.4) 04/01/23 02:57 Neut % (Auto) 39.1 % 04/01/23 02:57 Lymph % (Auto) 38.0 % 04/01/23 02:57 [place] % (Auto) 11.9 % 04/01/23 02:57 Eos % (Auto) 9.0 % 04/01/23 02:57 Baso % (Auto) 0.7 % 04/01/23 02:57 Neut # (Auto) 2.34 10^3/uL (1.8-7.7) 04/01/23 02:57 Lymph # (Auto) 2.3 10^3/uL (0.8-4.8) 04/01/23 02:57 [place] # (Auto) 0.7 10^3/uL (0.2-0.9) 04/01/23 02:57 Eos # (Auto) 0.5 10^3/uL (0.0-0.8) 04/01/23 02:57 Baso # (Auto) 0.0 10^3/uL (0.0-0.1) 04/01/23 02:57 Nucleated RBC % (auto) 0 % 04/01/23 02:57 Nucleated RBCs # 0.0 /100WBC 04/01/23 02:57 PT 12.90 SECONDS (12.1-14.9) 04/01/23 02:57 INR 0.94 (0.8-1.2) 04/01/23 02:57 APTT 29.8 SECONDS (23.9-36.7) 04/01/23 02:57 Sodium 138 mmol/L (136-145) 04/01/23 02:57 Potassium 4.0 mmol/L (3.5-5.1) 04/01/23 02:57 Chloride 102 mmol/L (98-107) 04/01/23 02:57 Carbon Dioxide 24 mmol/L (22-29) 04/01/23 02:57 Anion Gap 16.0 (5-19) 04/01/23 02:57 BUN 33 mg/dL (8-23) H 04/01/23 02:57 Creatinine 1.3 mg/dL (0.5-0.9) H 04/01/23 02:57 GFR Calculation Not Reportable 04/01/23 02:57 Glucose 109 mg/dL (65-115) 04/01/23 02:57 Calculated Osmolality 294 mOsm/kg (285-295) 04/01/23 02:57 Calcium 9.1 mg/dL (8.5-10.5) 04/01/23 02:57 Total Bilirubin 0.2 mg/dL (0.15-1.2) 04/01/23 02:57 AST 22 U/L (0-32) 04/01/23 02:57 ALT 10 U/L (0-33) 04/01/23 02:57 Alkaline Phosphatase 92 U/L (35-105) 04/01/23 02:57 Total Protein 7.1 g/dL (6.6-8.7) 04/01/23 02:57 Albumin 4.0 g/dL (3.5-5.2) 04/01/23 02:57 Globulin 3.1 g/dL (1.3-4.6) 04/01/23 02:57 Blood Type A Positive 04/01/23 04:16 Rho(D) Type Positive 04/01/23 04:16 Antibody Screen Negative 04/01/23 04:16 A&P Assessment and plan (1) Closed hip fracture: Displaced high cervical fracture of the right femur. Pain is currently controlled after receiving morphine. As needed Tylenol and morphine for pain management. Orthopedics consult has been placed from the ER, awaiting evaluation. N.p.o. for possible surgical intervention (2) Fall: Under unclear circumstances, possibly mechanical fall (3) Urinary retention: Status post Feliciano placement, 1400 cc urine drained soon after placement Creatinine currently appears to be at baseline of 1.3 (4) UTI (urinary tract infection): Positive UA, history of recurrent UTIs Empiric ceftriaxone 1 g IV every 24 while awaiting urine culture (5) Hypertension: Blood pressure upon initial arrival at 227/113, improved after receiving pain medication, currently at 158/72 at the time of my assessment Hydralazine 5 mg IV every 4 hours added as needed while patient is NPO. Thereafter can be transitioned to oral antihypertensives Attestations Medical Necessity Statement*: Greater than 2 midnight admission is anticipated for above defined care Coding Level of Care Code Acute Code for [facility] Diagnoses Closed hip fracture S72.009A Fall W19.XXXA Urinary retention R33.9 UTI (urinary tract infection) N39.0 Hypertension I10
--- NOTE | 2023-04-01 07:21 | PC.PHAR ---
stefany is from [facility] [phone]-meliza from [facility] will fax mar and tar
[2023-04-01 07:49] LABS: Thyroid Stimulating Hormone 1.91 uIU/mL (0.27-4.20)
[2023-04-01] MEDS: cefTRIAXone 1,000 MG in sodium chloride 0.9% (plus) 50 ML 100 MG IV (09:00)
--- NOTE | 2023-04-01 09:00 | ANES.PREANE2 ---
Pre-Anesthetic Assessment Height/Weight: Height 1.55 m Weight 48.988 kg Temp Pulse Resp BP Pulse Ox O2 Del Method 97.0 F L 84 18 153/81 98 Room Air 04/01/23 08:00 04/01/23 08:00 04/01/23 08:42 04/01/23 08:00 04/01/23 08:00 04/01/23 08:00 Preop Diagnosis: R FNF Operation Date: 04/01/23 09:45 Proposed Procedures p Right cemented bipolar hip(Right) - Tank Acosta MD Familial anesthetic complications: None Was Beta Rachel taken within 24 hours: N/A Was Clonidine taken within 24 hours: N/A Last intake: > 8hrs Social No alcohol and No tobacco Exam alert, oriented x 3, clear to auscultation bilaterally and regular rate & rhythm Airway Mallampati: Class II Dentition: full CV/HEM Hypertension renal artery stent Metabolic Thyroid Disease Anesthetic Plan ASA status: 3 Anesthesia: General Risk of > 500 ml blood loss (7ml/kg in children): Yes, adequate IV access and fluids planned Medications/Allergies Home Medications Medication Instructions Recorded Confirmed Last Taken Type acetaminophen 500 mg tablet 500 mg PO Q4H PRN Pain 10/24/21 04/01/23 Unknown History bisacodyl 10 mg rectal suppository 10 mg NC DAILY PRN Constipation 04/01/23 04/01/23 Unknown History diclofenac sodium 1 % topical gel See Rx Instructions .Route .COMPLEX 04/01/23 04/01/23 Unknown History levothyroxine 88 mcg tablet 88 mcg PO DAILY 04/01/23 04/01/23 Unknown History magnesium hydroxide 400 mg/5 mL 30 ml PO DAILY PRN Constipation 04/01/23 04/01/23 Unknown History oral suspension (Milk of Magnesia) sodium phosphates 19 gram-7 118 ml NC DAILY PRN Constipation 04/01/23 04/01/23 Unknown History gram/118 mL enema (Enema Disposable) Allergies Allergy/AdvReac Type Severity Reaction Status Date / Time amphetamine Allergy Unknown Verified 04/01/23 07:56 gabapentin Allergy Unknown Verified 04/01/23 07:56 levofloxacin Allergy Unknown Verified 04/01/23 07:56 nitrofurantoin Allergy Unknown Verified 04/01/23 07:56 sulfamethoxazole Allergy Unknown Verified 04/01/23 07:56 [From Bactrim] trimethoprim [From Bactrim] Allergy Unknown Verified 04/01/23 07:56 Current Medications Generic Name Dose Route Start Last Admin Trade Name Jose Alejandroq PRN Reason Stop Dose Admin Morphine Sulfate 2 mg 04/01/23 06:59 04/01/23 08:42 Morphine 4 Mg/Ml Sdv 1 Ml IVP 2 mg Q4H PRN Administration SEVERE PAIN PFSH Anesthesia Medical History (Updated 04/01/23 @ 07:18 by Carole Arias MD) C1 cervical fracture Dementia Hypertension Hypothyroidism No pertinent family history Surgical History No pertinent past surgical history Social History Smoking and tobacco status: never smoked Data Anesthesia 04/01/23 02:57 04/01/23 02:57 Short CBC 04/01/23 Range/Units 02:57 WBC 6.0 (4.0-10.0) 10^3/uL Hgb 11.8 (11.5-15.3) g/dL Hct 38.1 (37.0-47.0) % MCV 89.6 (81-99) fl Plt Count 239 (130-400) 10^3/cmm Neut % (Auto) 39.1 % Neut # (Auto) 2.34 (1.8-7.7) 10^3/uL BMP 04/01/23 02:57 Sodium 138 Potassium 4.0 Chloride 102 Carbon Dioxide 24 BUN 33 H Creatinine 1.3 H Glucose 109 Calcium 9.1 Liver Function 04/01/23 Range/Units 02:57 Total Bilirubin 0.2 (0.15-1.2) mg/dL AST 22 (0-32) U/L ALT 10 (0-33) U/L Alkaline Phosphatase 92 (35-105) U/L Albumin 4.0 (3.5-5.2) g/dL Blood Bank 04/01/23 04:16 Blood Type A Positive Rho(D) Type Positive Antibody Screen Negative Coags 04/01/23 02:57 PT 12.90 INR 0.94 APTT 29.8 Cardiac Studies: No Data to Display
[2023-04-01] MEDS: sodium chloride 0.9% 1,000 ML 30 ML IV (09:25)
[2023-04-01] MEDS: labetalol 5 mg/mL SDV 20mL 10 MG IVP (09:25)
--- NOTE | 2023-04-01 10:14 | PM.CONSULT ---
Providers/Reason For Consult Consulting Physician/Specialty*: Tank Acosta MD; orthopedic surgeon Reason for Consult*: Right femoral neck fracture Attending Physician: Johanny Beckwith MD Primary Care Provider: Real Ambriz DO History of Present Illness History of Present Illness Adelaide Miller is a 88 year old female who sustained an unwitnessed fall in the half-way. She was transferred here with complaints of right hip pain. Radiographs revealed a right femoral neck fracture. She is examined today in the presence of her family including her daughter who is the [employer]URABLE [employer]IMIZATION STRATEGIST. They state that she had problems with dementia and was dementia fontanez. She ambulated with a walker. Medications/Allergies Home Medications Medication Instructions Recorded Confirmed Last Taken Type acetaminophen 500 mg tablet 500 mg PO Q4H PRN Pain 10/24/21 04/01/23 Unknown History bisacodyl 10 mg rectal suppository 10 mg AL DAILY PRN Constipation 04/01/23 04/01/23 Unknown History diclofenac sodium 1 % topical gel See Rx Instructions .Route .COMPLEX 04/01/23 04/01/23 Unknown History levothyroxine 88 mcg tablet 88 mcg PO DAILY 04/01/23 04/01/23 Unknown History magnesium hydroxide 400 mg/5 mL 30 ml PO DAILY PRN Constipation 04/01/23 04/01/23 Unknown History oral suspension (Milk of Magnesia) sodium phosphates 19 gram-7 118 ml AL DAILY PRN Constipation 04/01/23 04/01/23 Unknown History gram/118 mL enema (Enema Disposable) Allergies Allergy/AdvReac Type Severity Reaction Status Date / Time amphetamine Allergy Unknown Verified 04/01/23 07:56 gabapentin Allergy Unknown Verified 04/01/23 07:56 levofloxacin Allergy Unknown Verified 04/01/23 07:56 nitrofurantoin Allergy Unknown Verified 04/01/23 07:56 sulfamethoxazole Allergy Unknown Verified 04/01/23 07:56 [From Bactrim] trimethoprim [From Bactrim] Allergy Unknown Verified 04/01/23 07:56 Current Medications Generic Name Dose Route Start Last Admin Trade Name Freq PRN Reason Stop Dose Admin Ceftriaxone Sodium 1,000 mg/ 50 mls @ 100 mls/hr 04/01/23 09:00 04/01/23 09:30 Sodium Chloride IV Infused Q24H ELIDA Infusion Protocol Sodium Chloride 1,000 mls @ 30 mls/hr 04/01/23 09:15 04/01/23 09:25 Sodium Chloride 0.9% IV 04/02/23 09:14 30 mls/hr .Q24H ELIDA Administration Morphine Sulfate 2 mg 04/01/23 06:59 04/01/23 08:42 Morphine 4 Mg/Ml Sdv 1 Ml IVP 2 mg Q4H PRN Administration SEVERE PAIN PFSH Acute PFSH: Medical History (Updated 04/01/23 @ 10:16 by Tank Acosta MD) C1 cervical fracture Dementia Hypertension Hypothyroidism No pertinent family history Surgical History No pertinent past surgical history Social History Smoking and tobacco status: never smoked Vitals/I&O/Wt Last Vital Signs Temp 97.2 F L 04/01/23 09:12 Pulse 92 04/01/23 09:20 Resp 16 04/01/23 09:20 BP 187/102 04/01/23 09:20 Pulse Ox 98 04/01/23 09:20 O2 Del Method Room Air 04/01/23 09:20 03/31/23 04/01/23 04/01/23 22:59 06:59 14:59 Intake Total 100 / 100 50 / 50 Balance 100 / 100 50 / 50 Weight last 48 hrs Weight 108 lb Physical Exam Narrative: Ms. Miller is supine in bed. She is resting comfortably. HEAD: Normocephalic/atraumatic. NECK: Soft supple nontender. HEART: Normal heart sounds, regular rhythm. CHEST: Clear to auscultation. ABDOMEN: Soft nontender nondistended. She has shortening and external rotation of the right hip. There is exquisite pain with motion of the right hip. Her right foot is well-perfused with a palpable Thomas pedis pulse Urinary Catheter Management: Feliciano: Cath Placed During This Visit: yes Reason for Continuing Indwelling Catheter: Perioperative Use in Selected Surgeries Urinary Catheter Date of Insertion: 04/01/23 Urinary Catheter Time of Insertion: 03:25 Data 04/01/23 02:57 04/01/23 02:57 Xray Ortho: My impression: Radiographs of the right hip and femur are reviewed. The patient has a displaced fracture of the right femoral neck. A&P Assessment and plan (1) Displaced fracture of right femoral neck: I discussed options with the patient and family. I told them possible treatments for displaced femoral neck fracture would include nonoperative treatment, open reduction internal fixation, or hemiarthroplasty. I told them without treatment the patient would experience ongoing of pain that would limit mobility. This would require pain medications and place her at medical risks due to prolonged periods of bed rest. I discussed the possibility of open reduction internal fixation with pins. I warned them that for displaced fractures of the risk of nonunion and malunion is exceptionally high. In addition there is a high likelihood that the blood applied to the femoral head has been disrupted and that even with successful stabilization of the fracture the femoral head will go on to . I finally discussed the possibility of hemiarthroplasty. I think this would give the patient the greatest chance of being immediately mobilized. I discussed risk of a bleeding and a possible need for blood products. I discussed risk of deep venous thromboses and pulmonary emboli and the need for anticoagulation. I discussed the use of the TXA that may be utilized to diminish blood loss. I discussed risk of component failure and loosening that could require revision. I discussed the risk of dislocation and a bipolar arthroplasty which is quite unlikely. After a long discussion of options they agree to hemiarthroplasty of the hip. Coding Level of Care Code Acute Code for [facility] Diagnoses Displaced fracture of right femoral neck S72.001A
[2023-04-01] MEDS: ceFAZolin 2,000 MG in sodium chloride 0.9% (plus) 50 ML 100 MG IV ×2 (10:18→17:10)
[2023-04-01] MEDS: tranexamic acid 1,000 mg/10mL SDV 1000 MG IV (10:50)
[2023-04-01] MEDS: tranexamic acid 1,000 mg/10mL SDV 2000 MG IRRIGATION (11:00)
[2023-04-01] MEDS: sodium chloride 0.9% 100 mL Bag XX (11:00)
--- NOTE | 2023-04-01 11:16 | PM.MISC ---
Miscellaneous Note Note: Status post surgical intervention Postop day 0 No audible stridor or wheezing Currently on room air S1, S2 Abdomen soft Nonfocal neuro exam Hemodynamically stable Normal CBC and BMP Start DVT prophylaxis 4 hours after surgery Monitor for postoperative complications Patient is hypertensive related to pain Afebrile Chronic kidney disease at baseline
--- NOTE | 2023-04-01 11:47 | XR_ITS ---
WS: [id number] Exam: XR hip RT 1V wo/w pel [id number] Date/Time of Exam: 04/01/2023 11:47 AM Reason For Exam: Right bipolar hip Comparison 04/01/2023. 3:30 AM. Right hip prosthesis has been placed. Postoperative changes in the adjacent soft tissues.
--- NOTE | 2023-04-01 11:48 | P.OP_ITS ---
Operative Report Date of procedure: April 01, 2023 Pre-op diagnosis: Preop Diagnosis R FNF Post-op diagnosis: same Procedure done: Hemiarthroplasty right hip Implants: [place] 1) Accolade cemented stem, size 4 2) 42 bipolar femoral head 3) 26mm/-3 neck length femoral head Pathology: none sent Surgeon: Tank Acosta Anesthesia: Nerve Block (Spinal) Estimated blood loss (mL): 50 Findings: The patient had the previously described displaced fracture of the femoral neck Disposition: PACU Procedure: The patient was taken to the operating room and a spinal anesthesia was provided by the anesthesia service. They were given 2 g events and 1 g of tranexamic acid and positioned in the lateral position with the hip exposed. A 10 cm long incision was made over the greater trochanter with a scalpel blade. D issection was carried down through the fascia rox to the greater trochanter. The anterior two thirds of gluteus medius and minimus were elevated off the greater trochanter with electrocautery. The capsule was divided T like fashion. The hip was externally rotated and the neck brought up into the wound. An oscillating saw was really used to resect the neck just above the level of the lesser trochanter. The femoral head was removed and the acetabulumt sized to a 42 mm bipolar head. Due to her age and osteoporosis a cemented application was chosen. Sequential broaching of the canal was accomplished up to a size 4. A size 4 Eduardo Accolade mental stem was cemented into place. A trial reduction with a -3 mm neck provided excellent stability. The final head and neck were placed and the hip reduced. The anterior capsule were reapproximated with 1 Ethibond. The gluteus medius and minimus were repaired through the greater trochanter with 5 Ethibond and reinforced with 1 Ethibond. The fascia rox was closed with 1 Stratafix. The subcutaneous tissues were closed with 2-0 Stratafix. The skin was closed with a running 4-0 Stratafix. The incision was covered with a Prineo dressing. Sterile Opsitedressings were applied. The patient was placed in abduction pillow and taken recovery room in stable condition.
--- NOTE | 2023-04-01 12:11 | ANE.PACU2 ---
Inpatient post-anesthesia follow up: Airway intact: Yes Vital signs: Temperature 98.3 F Pulse Rate 68 Respiratory Rate 14 Blood Pressure 126/61 Pulse Oximetry 98 Oxygen Delivery Me thod Room Air Oxygen Flow Rate Fraction of Inspir ed Oxygen Hydration adequate: Yes Nausea and vomiting: Yes Pain level: 1 Mental status: Baseline
[2023-04-01] MEDS: meperidine 50 mg/mL INJ 12.5 MG IVP (12:23)
[2023-04-01] MEDS: ondansetron 2 mg/ML SDV 2 mL 4 MG IVP ×2 (12:32→18:45)
[2023-04-01] MEDS: sodium chloride 0.9% 1,000 ML 30 ML (12:38)
[2023-04-01] MEDS: HYDROcodone-acetaminophen 5-325 mg Tablet 1 TAB PO (17:13)
[2023-04-01] MEDS: acetaminophen 500 mg Tablet 1000 MG PO (21:04)
[2023-04-01] MEDS: heparin 5,000 unit/mL INJ 1 mL 5000 UNIT SUBCUT (23:03)
[2023-04-02] VITALS (11 sets, daily range): BP systolic 126–182; BP diastolic 63–80; PULSE 70–94; RESP 15–18; TEMP 36.4–37.1; O2SAT 94–95
[2023-04-02] MEDS: sodium chloride 0.9% 1,000 ML 75 ML IV ×2 (02:19→15:43)
[2023-04-02] MEDS: ceFAZolin 2,000 MG in sodium chloride 0.9% (plus) 50 ML 100 MG IV ×2 (02:19→10:53)
[2023-04-02 04:15] LABS: Basophils % 0.3 %; Eosinophils % 0.1 %; Hematocrit 32.4 % (37.0-47.0); Lymphocytes # 0.8 10^3/uL (0.8-4.8); Lymphocytes % 11.3 %; Mean Corpuscular HGB Conc 30.9 g/dL (30.0-36.0); Mean Corpuscular Hemoglobin 28.3 pg (28.0-34.0); Mean Corpuscular Volume 91.8 fl (81-99); Mean Platelet Volume 9.9 fL (7.4-10.4); Monocytes # 0.7 10^3/uL (0.2-0.9); Monocytes % 10.3 %; Neutrophils % 77.7 %; Nucleated Red Blood Cells % 0 %; Platelet Count 208 10^3/cmm (130-400); Red Blood Count 3.53 10^6/uL (4.1-5.3); Red Cell Distribution Width 14.4 % (12.1-15.1); White Blood Count 6.7 10^3/uL (4.0-10.0)
[2023-04-02 04:36] LABS: Alanine Aminotransferase 8 U/L (0-33); Albumin Level 3.3 g/dL (3.5-5.2); Alkaline Phosphatase 74 U/L (35-105); Anion Gap 14.7 (5-19); Aspartate Amino Transferase 32 U/L (0-32); Blood Urea Nitrogen 26 mg/dL (8-23); Carbon Dioxide 25 mmol/L (22-29); Chloride 107 mmol/L (98-107); Globulin 2.8 g/dL (1.3-4.6); Glucose 101 mg/dL (65-115); Osmolality Calculated 299 mOsm/kg (285-295); Potassium 4.7 mmol/L (3.5-5.1); Sodium 142 mmol/L (136-145); Total Bilirubin 0.2 mg/dL (0.15-1.2); Total Protein 6.1 g/dL (6.6-8.7)
[2023-04-02] MEDS: acetaminophen 500 mg Tablet 1000 MG PO ×3 (05:30→20:55)
[2023-04-02] MEDS: sennosides-docusate Tablet 2 TAB PO ×2 (09:27→17:53)
[2023-04-02] MEDS: cefTRIAXone 1,000 MG in sodium chloride 0.9% (plus) 50 ML 100 MG IV (09:27)
[2023-04-02] MEDS: levothyroxine 88 mcg Tablet PO (09:27)
[2023-04-02] MEDS: morphine 4 mg/mL SDV 1 mL 2 MG IVP ×2 (10:40→18:06)
[2023-04-02] MEDS: heparin 5,000 unit/mL INJ 1 mL 5000 UNIT SUBCUT (10:54)
--- NOTE | 2023-04-02 14:09 | P.PN_ITS ---
Subjective Subjective: Complains of pain Vitals/I&O/Wt Last Vital Signs Temp 97.7 F 04/02/23 12:00 Pulse 70 04/02/23 12:00 Resp 18 04/02/23 12:00 BP 182/80 04/02/23 12:00 Pulse Ox 95 04/02/23 12:00 O2 Del Method Room Air 04/02/23 12:00 04/01/23 04/02/23 04/02/23 22:59 06:59 14:59 Intake Total 1050 / 3050 1001.25 / 4051.25 100 / 100 Output Total 700 / 950 500 / 1450 Balance 350 / 2100 501.25 / 2601.25 100 / 100 Weight last 48 hrs Weight 108 lb Physical Exam Narrative: Right hip dressing clean and dry Urinary Catheter Management: Feliciano: Cath Placed During This Visit: yes Reason for Continuing Indwelling Catheter: Perioperative Use in Selected Surgeries Urinary Catheter Date of Insertion: 04/01/23 Urinary Catheter Time of Insertion: 03:25 Data 04/02/23 03:38 04/02/23 03:38 A&P Assessment and plan (1) Status post right hip replacement: Mobilize with therapy. Awaiting half-way placement. Attestations Medical Necessity Statement*: Awaiting half-way Coding Level of Care Code Acute Code for Chg Fwd Diagnoses Status post right hip replacement Z96.641
[2023-04-02] MEDS: hyDRALAzine 20 mg/mL INJ 1 mL 5 MG IVP (16:41)
[2023-04-02] MEDS: HYDROcodone-acetaminophen 5-325 mg Tablet 1 TAB PO (16:50)
--- NOTE | 2023-04-02 21:13 | P.PN_ITS ---
Subjective Subjective: Reports leg pain is 10 out of 10. Denies fever, chills, abd pain or chest pain. Denies constipation. Medications: Reviewed: Yes Vitals/I&O/Wt Last Vital Signs Temp 97.9 F 04/02/23 19:19 Pulse 88 04/02/23 19:29 Resp 18 04/02/23 19:29 BP 142/63 04/02/23 19:19 Pulse Ox 95 04/02/23 19:29 O2 Del Method Room Air 04/02/23 19:29 04/02/23 04/02/23 04/02/23 06:59 14:59 22:59 Intake Total 1001.25 / 4051.25 100 / 100 1360 / 1460 Output Total 500 / 1450 1200 / 1200 Balance 501.25 / 2601.25 100 / 100 160 / 260 Weight last 48 hrs Weight 48.988 kg Physical Exam Narrative: General: Patient is awake and alert. In moderate distress from pain. Head: Normocephalic. Atraumatic. EOM intact. Neck: No JVD. Cardiovascular: RRR. No gallops. No murmurs. Lungs: Clear to auscultation, no use of accessory muscles, no crackles or w heezes. Skin: No jaundice. No rashes. Abdomen: Normal bowel sounds, abdomen soft and nontender. Genito Urinary: Genital exam not performed since complaints not related. Rectal: Rectal exam not performed since no symptoms indicated blood loss. Extremities: No cyanosis or clubbing. Musculoskeletal: Normal muscle mass. Neurological: No myoclonus. Moves all 4 extremities. Urinary Catheter Management: Feliciano: Cath Placed During This Visit: yes Reason for Continuing Indwelling Catheter: Acute Urinary Retention or Obstruction Urinary Catheter Date of Insertion: 04/01/23 Urinary Catheter Time of Insertion: 03:25 Data 04/02/23 03:38 04/02/23 03:38 A&P Assessment and plan (1) Closed hip fracture: Displaced high cervical fracture of the right femur. Status post surgery on 04/01 Ortho following, defer DVT ppx and periop abx to ortho Analgesics as needed Therapy (2) Fall: Under unclear circumstances, possibly mechanical fall (3) Urinary retention: Status post Feliciano placement, 1400 cc urine drained soon after placement Continue Feliciano (4) UTI (urinary tract infection): Follow up Ux Continue ceftriaxone (5) Hypertension: Blood pressure still not optimal Ensure pain control Continue current meds Plan DVT ppx: Heparin COde: Full Code Attestations Medical Necessity Statement*: Patient is post op from surgery requiring ongoing hospitalized care. Coding Level of Care Code Acute Code for Chg Fwd Diagnoses Closed hip fracture S72.009A Fall W19.XXXA Urinary retention R33.9 UTI (urinary tract infection) N39.0 Hypertension I10
[2023-04-03] VITALS (12 sets, daily range): BP systolic 121–170; BP diastolic 62–72; PULSE 67–93; RESP 15–18; TEMP 36.4–37.2; O2SAT 92–98
[2023-04-03] MEDS: heparin 5,000 unit/mL INJ 1 mL 5000 UNIT SUBCUT ×3 (00:09→22:29)
[2023-04-03] MEDS: sodium chloride 0.9% 1,000 ML 75 ML IV ×2 (04:27→22:27)
[2023-04-03 05:56] LABS: Basophils % 0.5 %; Eosinophils # 0.2 10^3/uL (0.0-0.8); Eosinophils % 1.8 %; Hematocrit 33.6 % (37.0-47.0); Lymphocytes # 0.9 10^3/uL (0.8-4.8); Lymphocytes % 10.2 %; Mean Corpuscular HGB Conc 29.8 g/dL (30.0-36.0); Mean Corpuscular Hemoglobin 27.8 pg (28.0-34.0); Mean Corpuscular Volume 93.3 fl (81-99); Mean Platelet Volume 9.8 fL (7.4-10.4); Monocytes # 0.7 10^3/uL (0.2-0.9); Monocytes % 7.9 %; Neutrophils # 6.94 10^3/uL (1.8-7.7); Neutrophils % 79.1 %; Nucleated Red Blood Cells % 0 %; Platelet Count 213 10^3/cmm (130-400); Red Cell Distribution Width 14.4 % (12.1-15.1); White Blood Count 8.8 10^3/uL (4.0-10.0)
[2023-04-03 06:25] LABS: Albumin Level 2.9 g/dL (3.5-5.2); Anion Gap 16.6 (5-19); Blood Urea Nitrogen 22 mg/dL (8-23); Calcium 8.2 mg/dL (8.5-10.5); Carbon Dioxide 20 mmol/L (22-29); Chloride 105 mmol/L (98-107); Glucose 66 mg/dL (65-115); Phosphorus 2.6 mg/dL (2.5-4.5); Potassium 3.6 mmol/L (3.5-5.1); Sodium 138 mmol/L (136-145)
[2023-04-03] MEDS: cefTRIAXone 1,000 MG in sodium chloride 0.9% (plus) 50 ML 100 MG IV (09:10)
[2023-04-03] MEDS: sennosides-docusate Tablet 2 TAB PO ×2 (09:10→17:35)
[2023-04-03] MEDS: levothyroxine 88 mcg Tablet PO (09:10)
[2023-04-03] MEDS: HYDROcodone-acetaminophen 5-325 mg Tablet 1 TAB PO (09:24)
[2023-04-03] MEDS: ondansetron 2 mg/ML SDV 2 mL 4 MG IVP (11:43)
[2023-04-03] MEDS: acetaminophen 500 mg Tablet 1000 MG PO ×2 (13:48→21:30)
--- NOTE | 2023-04-03 17:15 | PM.PN ---
Subjective Subjective: Patient is up to bedside chair. She appears more fatigued today. Pain better. She currently denies any pain. Per report just asked for some pain medication not too long ago. She denies fevers, chills, nausea or emesis. Medications: Reviewed: Yes Vitals/I&O/Wt Last Vital Signs Temp 97.9 F 04/03/23 16:00 Pulse 87 04/03/23 16:00 Resp 15 04/03/23 16:00 BP 150/68 04/03/23 16:00 Pulse Ox 96 04/03/23 16:00 O2 Del Method Room Air 04/03/23 16:00 04/03/23 04/03/23 04/03/23 06:59 14:59 22:59 Intake Total 1075 / 3655 290 / 290 Output Total 100 / 1400 750 / 750 Balance 975 / 2255 -460 / -460 Physical Exam Narrative: General: Patient is awake. Sitting in bedside chair. Head: Normocephalic. Atraumatic. EOM intact. Neck: No JVD. Cardiovascular: RRR. No gallops. No murmurs. Lungs: Clear to auscultation, no use of accessory muscles, no crackles or wheezes. Skin: No jaundice. No rashes. Abdomen: Normal bowel sounds, abdomen soft and nontender. Extremities: No cyanosis or clubbing. Distal pulses intact. Musculoskeletal: Normal muscle mass. Neurological: No myoclonus. Moves all 4 extremities. Urinary Catheter Management: Feliciano: Cath Placed During This Visit: yes Reason for Continuing Indwelling Catheter: Acute Urinary Retention or Obstruction Urinary Catheter Date of Insertion: 04/01/23 Urinary Catheter Time of Insertion: 03:25 Data 04/03/23 05:32 04/03/23 05:32 A&P Assessment and plan (1) Closed hip fracture: Displaced high cervical fracture of the right femur Status post hemiarthroplasty right hip on 04/01 Ortho following, appreciate reccs Analgesics as needed Continue therapy (2) Fall: Suspected mechanical fall (3) Urinary retention: Status post Feliciano placement, 1400 cc urine drained soon after placement Continue Feliciano, will need voiding trial (4) UTI (urinary tract infection): Ux w/ NG Continue ceftriaxone (5) Hypertension: Blood pressure still not optimal Ensure pain control Hydralazine PRN Plan DVT ppx: Heparin COde: Full Code Attestations Medical Necessity Statement*: Patient requires ongoing hospitalized care for therapy, labs, therapy, and supportive care. Coding Level of Care Code Acute Code for g Fwd Diagnoses Closed hip fracture S72.009A Fall W19.XXXA Urinary retention R33.9 UTI (urinary tract infection) N39.0 Hypertension I10
[2023-04-03] MEDS: morphine 4 mg/mL SDV 1 mL 2 MG IVP (21:31)
[2023-04-03] MEDS: hyDRALAzine 20 mg/mL INJ 1 mL 5 MG IVP (22:26)
[2023-04-04] VITALS: BP 160/65; PULSE 80; RESP 15; TEMP 36.4; O2SAT 97
[2023-04-04 03:58] VITALS: BP 168/78; PULSE 83; RESP 16; TEMP 36.4; O2SAT 95
[2023-04-04] MEDS: acetaminophen 500 mg Tablet 1000 MG PO ×2 (04:41→14:43)
[2023-04-04] MEDS: hyDRALAzine 20 mg/mL INJ 1 mL 5 MG IVP (04:42)
[2023-04-04 05:10] LABS: Basophils % 0.5 %; Eosinophils # 0.4 10^3/uL (0.0-0.8); Eosinophils % 4.9 %; Hematocrit 30.8 % (37.0-47.0); Hemoglobin 9.4 g/dL (11.5-15.3); Lymphocytes # 0.8 10^3/uL (0.8-4.8); Lymphocytes % 10.3 %; Mean Corpuscular HGB Conc 30.5 g/dL (30.0-36.0); Mean Corpuscular Hemoglobin 27.6 pg (28.0-34.0); Mean Corpuscular Volume 90.6 fl (81-99); Mean Platelet Volume 9.8 fL (7.4-10.4); Monocytes # 0.6 10^3/uL (0.2-0.9); Monocytes % 7.7 %; Neutrophils # 5.73 10^3/uL (1.8-7.7); Neutrophils % 76.1 %; Nucleated Red Blood Cells % 0 %; Platelet Count 225 10^3/cmm (130-400); Red Cell Distribution Width 14.5 % (12.1-15.1); White Blood Count 7.5 10^3/uL (4.0-10.0)
[2023-04-04 05:26] VITALS: PULSE 79
[2023-04-04 05:35] LABS: Albumin Level 2.8 g/dL (3.5-5.2); Anion Gap 14.7 (5-19); Blood Urea Nitrogen 22 mg/dL (8-23); Carbon Dioxide 20 mmol/L (22-29); Chloride 106 mmol/L (98-107); Glucose 81 mg/dL (65-115); Phosphorus 1.9 mg/dL (2.5-4.5); Potassium 3.7 mmol/L (3.5-5.1); Sodium 137 mmol/L (136-145)
[2023-04-04] MEDS: morphine 4 mg/mL SDV 1 mL 2 MG IVP (06:29)
[2023-04-04 08:00] VITALS: BP 142/56; PULSE 83; RESP 16; RESP 17; TEMP 36.6; O2SAT 96; O2SAT 97
[2023-04-04] MEDS: sennosides-docusate Tablet 2 TAB PO (08:25)
[2023-04-04] MEDS: levothyroxine 88 mcg Tablet PO (08:25)
[2023-04-04] MEDS: cefTRIAXone 1,000 MG in sodium chloride 0.9% (plus) 50 ML 100 MG IV (08:25)
[2023-04-04] MEDS: HYDROcodone-acetaminophen 5-325 mg Tablet 1 TAB PO (08:29)
--- NOTE | 2023-04-04 08:53 | PC.SOCIAL ---
IMM update IMM updated with patient. Verbalized an understanding. Copy Pg 2 provided. Initialled, dated, timed, and placed in chart.
[2023-04-04 09:48] LABS: SARS Covid-2 Antigen negative (Negative)
[2023-04-04] MEDS: sodium chloride 0.9% 1,000 ML 75 ML IV (11:56)
[2023-04-04] MEDS: heparin 5,000 unit/mL INJ 1 mL 5000 UNIT SUBCUT (11:56)
--- NOTE | 2023-04-04 11:56 | PM.DCS ---
Discharge Providers Date of Admission: 04/01/23 05:07 Date of Discharge: April 04, 2023 Attending Provider at Admission: Carole Arias MD Attending Provider at Discharge: Cresencio Duncan MD Primary Care Provider: Real Ambriz DO Diagnoses at Discharge Discharge Diagnosis (1) Closed hip fracture: Status: Acute (2) Fall: Status: Acute (3) Urinary retention: Status: Acute (4) UTI (urinary tract infection): Status: Acute (5) Hypertension: Status: Acute Reason for Visit Reason for Visit: FALL Hospital Course Hospital Course 88 year old female with dementia, currently a [facility] resident, presenting to the emergency room with fall sustained at the [facility] in unclear circumstances.?It is believed she may have been trying to get out of bed to go to the bathroom.? She was found on the floor.? She did not lose consciousness. She has been found to have a mildly displaced high cervical fracture of the right femur and chronic compression fracture of T12, she was admitted for the management of right hip fracture: S/p?hemiarthroplasty right hip on 04/01, during the hospital stay she was also managed for UTI she was on ceftriaxone urine culture was negative, No antibiotic was continued on discharge, fall appears to be mechanical. She was discharged in stable condition back to [facility], she will continue to follow orthopedic as outpatient. Physical Exam Const: COMMON NORMALS: patient oriented x3 HENMT: COMMON NORMALS: normocephalic and atraumatic HEAD & SCALP: normocephalic and atraumatic Resp: COMMON NORMALS: clear to auscultation bilaterally AUSCULTATION: clear to auscultation bilaterally Cardio: COMMON NORMALS: regular rate, regular rhythm, S1 normal heart sound present, S2 normal heart sound present, No gallops present (Cardio), No murmurs present (Cardio), No rub (Cardio) and Peripheral pulses 2+ throughout RATE: regular rate RHYTHM: regular rhythm HEART SOUNDS: S1 normal heart sound present and S2 normal heart sound present PERIPHERAL PULSES: Peripheral pulses 2+ throughout GI: COMMON NORMALS: Normal to inspection, nondistended, normoactive bowel sounds present, Soft to palpation, non-tender, No hepatosplenomegaly present and no masses AUSCULTATION: Yes normoactive bowel sounds PALPATION: Yes Soft to palpation and Yes No hepatosplenomegaly present RECTAL EXAM: deferred Extremity: COMMON NORMALS: no clubbing, cyanosis or edema and no pedal edema Neuro: COMMON NORMALS: patient oriented x3 Urinary Catheter Management: Feliciano: Cath Placed During This Visit: yes, but has since been removed by the nurse Reason for Continuing Indwelling Catheter: Decision to DC Catheter Urinary Catheter Date of Insertion: 04/01/23 Urinary Catheter Time of Insertion: 03:25 Date Urinary Catheter Removed: 04/04/23 Time Urinary Catheter Discontinued: 10:40 Discharge Data Studies Completed and Pending Completed Studies During Hospitalization Category Date Time Status CT cervical spin wo con* [id number] Stat Cat Scan 04/01/23 02:[address] chest abdpel w/*[id number] Stat Cat Scan 04/01/23 02:[address] head wo con* [id number] Stat Cat Scan 04/01/23 02:50 Completed XR chest 1V portable [id number] Stat Exams 04/01/23 03:15 Completed XR femur RT min 2V* [id number] Stat Exams 04/01/23 03:28 Completed XR hip RT 1V wo/w pel [id number] Routine Exams 04/01/23 11:47 Completed XR hip RT 2-3V wo/w pel* [id number] Stat Exams 04/01/23 02:50 [place] [id number] Stat Exams 04/01/23 02:50 Completed Radiology Impressions Cervical Spine CT 04/01/23 02:50 IMPRESSION: 1. 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 2. Healed partial union or nonunion of right paramedian anterior C1 arch fracture. Chest/Abdomen/Pelvis CT 04/01/23 02:50 IMPRESSION: 1. No evidence of injury to intrathoracic organs. 2. No acute fracture in the thorax. 3. A moderate-sized hiatal hernia. 4. Extensive atherosclerotic plaques throughout the thoracic aorta without aneurysm. IMPRESSION: 1. Mildly displaced high cervical fracture of the right femur. 2. Severe chronic compression fracture of T12 and moderate chronic compression fracture of L1 without significant central spinal canal stenosis. 3. Severe peripheral vascular disease with a patent stent at the origin of the right main renal artery. 4. Additional non emergent findings are stated in the body of the report. ADDENDUM: 04/01/23 0508 THIS REPORT CONTAINS FINDINGS THAT MAY BE CRITICAL TO PATIENT CARE. The findings were verbally communicated via telephone conference with Khris Yoder at 5:07 AM CDT on 04/01/2023. The findings were acknowledged and understood. Head CT 04/01/23 02:50 IMPRESSION: No acute intracranial findings. Hip/Pelvis X-Ray 04/01/23 02:50 IMPRESSION: High cervical fracture of the right femur with superior displacement of the major distal fragment. Humerus X-Ray 04/01/23 02:50 IMPRESSION: 1. No acute fracture or dislocation. 2. Soft tissue swelling/hematoma of the mid to proximal arm. Chest X-Ray 04/01/23 03:15 IMPRESSION: 1. No acute findings. 2. Mild pulmonary hyperinflation as seen in COPD. 3. Bilateral apical pleuroparenchymal scarring. 4. A moderate-sized hiatal hernia, better seen on the concomitant CT scan of the chest. Femur X-Ray 04/01/23 03:28 IMPRESSION: Displaced high cervical fracture of the right femur. Laboratory Results WBC 7.5 10^3/uL (4.0-10.0) 04/04/23 04:43 RBC 3.40 10^6/uL (4.1-5.3) L 04/04/23 04:43 Hgb 9.4 g/dL (11.5-15.3) L 04/04/23 04:43 Hct 30.8 % (37.0-47.0) L 04/04/23 04:43 MCV 90.6 fl (81-99) 04/04/23 04:43 MCH 27.6 pg (28.0-34.0) L 04/04/23 04:43 MCHC 30.5 g/dL (30.0-36.0) 04/04/23 04:43 RDW 14.5 % (12.1-15.1) 04/04/23 04:43 Plt Count 225 10^3/cmm (130-400) 04/04/23 04:43 MPV 9.8 fL (7.4-10.4) 04/04/23 04:43 Neut % (Auto) 76.1 % 04/04/23 04:43 Lymph % (Auto) 10.3 % 04/04/23 04:43 [place] % (Auto) 7.7 % 04/04/23 04:43 Eos % (Auto) 4.9 % 04/04/23 04:43 Baso % (Auto) 0.5 % 04/04/23 04:43 Neut # (Auto) 5.73 10^3/uL (1.8-7.7) 04/04/23 04:43 Lymph # (Auto) 0.8 10^3/uL (0.8-4.8) 04/04/23 04:43 [place] # (Auto) 0.6 10^3/uL (0.2-0.9) 04/04/23 04:43 Eos # (Auto) 0.4 10^3/uL (0.0-0.8) 04/04/23 04:43 Baso # (Auto) 0.0 10^3/uL (0.0-0.1) 04/04/23 04:43 Nucleated RBC % (auto) 0 % 04/04/23 04:43 Nucleated RBCs # 0.0 /100WBC 04/04/23 04:43 PT 12.90 SECONDS (12.1-14.9) 04/01/23 02:57 INR 0.94 (0.8-1.2) 04/01/23 02:57 APTT 29.8 SECONDS (23.9-36.7) 04/01/23 02:57 Sodium 137 mmol/L (136-145) 04/04/23 04:43 Potassium 3.7 mmol/L (3.5-5.1) 04/04/23 04:43 Chloride 106 mmol/L (98-107) 04/04/23 04:43 Carbon Dioxide 20 mmol/L (22-29) L 04/04/23 04:43 Anion Gap 14.7 (5-19) 04/04/23 04:43 BUN 22 mg/dL (8-23) 04/04/23 04:43 Creatinine 1.1 mg/dL (0.5-0.9) H 04/04/23 04:43 GFR Calculation Not Reportable 04/04/23 04:43 Glucose 81 mg/dL (65-115) 04/04/23 04:43 Calculated Osmolality 299 mOsm/kg (285-295) H 04/02/23 03:38 Calcium 8.0 mg/dL (8.5-10.5) L 04/04/23 04:43 Phosphorus 1.9 mg/dL (2.5-4.5) L 04/04/23 04:43 Magnesium 2.0 mg/dL (1.7-2.3) 04/03/23 05:32 Total Bilirubin 0.2 mg/dL (0.15-1.2) 04/02/23 03:38 AST 32 U/L (0-32) 04/02/23 03:38 ALT 8 U/L (0-33) 04/02/23 03:38 Alkaline Phosphatase 74 U/L (35-105) 04/02/23 03:38 Total Protein 6.1 g/dL (6.6-8.7) L 04/02/23 03:38 Albumin 2.8 g/dL (3.5-5.2) L 04/04/23 04:43 Globulin 2.8 g/dL (1.3-4.6) 04/02/23 03:38 TSH 1.91 uIU/mL (0.27-4.20) 04/01/23 02:17 SARS-CoV-2 Ag (Rapid) negative (Negative) 04/04/23 09:20 Blood Type A Positive 04/01/23 04:16 Rho(D) Type Positive 04/01/23 04:16 Antibody Screen Negative 04/01/23 04:16 Vitals Last Vital Signs Temp 97.9 F 04/04/23 08:00 Pulse 83 04/04/23 08:00 Resp 16 04/04/23 08:00 BP 142/56 04/04/23 08:00 Pulse Ox 96 04/04/23 08:00 O2 Del Method Room Air 04/04/23 08:00 Discharge Plan Discharge Patient Disposition: Xfer SNF Condition: Stable Prescriptions: New hydrocodone-acetaminophen 5-325 mg Tablet 1 tab PO Q4H PRN (Reason: Moderate Pain) 14 Days Qty: 20 0RF enoxaparin 30 mg/0.3 mL Syringe 30 mg SUBCUT Q24H 10 Days Qty: 3 0RF Continued levothyroxine 88 mcg tablet 88 mcg PO DAILY Milk of Magnesia 400 mg/5 mL Suspension 30 ml PO DAILY PRN (Reason: Constipation) bisacodyl 10 mg Suppository 10 mg CA DAILY PRN (Reason: Constipation) Enema Disposable 19-7 gram/118 mL Enema 118 ml CA DAILY PRN (Reason: Constipation) diclofenac sodium 1 % gel See Rx Instructions .ROUTE .COMPLEX Rx Instructions: apply to right knee topically two times a day acetaminophen 500 mg Tablet 500 mg PO Q4H PRN (Reason: Pain) Qty: 20 0RF Discharge Orders: Discharge Order (Routine); Ordered 04/04/23 Ordered By: Cresencio Duncan Referrals: [facility] [Outside] Nba Wileks FNP [Physician Material Scheduler] - 1 month Real Ambriz DO [Primary Care Provider] - Patient Instructions: Opioid Safety Discharge Attestations Time Spent in Discharge Care*: less than 30 min Quality Metrics Clinical Quality Measures [ No reported AMI, CVA or VTE this stay] Coding Level of Care Code Acute Code for Chg Fwd Diagnoses Closed hip fracture S72.009A Fall W19.XXXA Urinary retention R33.9 UTI (urinary tract infection) N39.0 Hypertension I10
[2023-04-04 12:00] VITALS: BP 134/58; PULSE 93; RESP 17; TEMP 36.7; O2SAT 95
--- NOTE | 2023-04-04 14:54 | PC.NURSE ---
This nurse gave report to SUSANNE Schneider at [facility] via phone at [phone].
== END 2023-04-04 15:35 | disposition skilled nursing facility (03) | DRG 522 ==
LOC: ER 05:07 → MEDSURG 05:12
PROVIDERS: Internal Medicine; Orthopaedic Surgery; Admitting Provider Student in an Organized Health Care Education/Training Program; Emergency Provider Emergency Medicine; PCP Internal Medicine; Visit Provider Internal Medicine
PROC: 0SRR0J9 Replacement of Right Hip Joint, Femoral Surface with Synthetic Substitute, Cemented, Open Approach (ICD-10-PCS; CPT 27125; principal; 2023-04-01 09:45)
DX: S72.091A Other fracture of head and neck of right femur, initial encounter for closed fracture (principal); N39.0 Urinary tract infection, site not specified; W18.30XA Fall on same level, unspecified, initial encounter; Y92.129 Unspecified place in nursing home as the place of occurrence of the external cause; F03.90 Unspecified dementia, unspecified severity, without behavioral disturbance, psychotic disturbance, mood disturbance, and anxiety; I73.9 Peripheral vascular disease, unspecified; Z95.820 Peripheral vascular angioplasty status with implants and grafts; Z87.440 Personal history of urinary (tract) infections; I12.9 Hypertensive chronic kidney disease with stage 1 through stage 4 chronic kidney disease, or unspecified chronic kidney disease; I11.0 Hypertensive heart disease with heart failure; E03.9 Hypothyroidism, unspecified; R33.9 Retention of urine, unspecified
CPT/HCPCS: 36415; 51702; 70450; 71045; 71260; 72125; 73060; 73501; 73502; 73552; 74177; 80053; 80069; 83735; 84443; 85025; 85610; 85730; 86850; 86900; 87426; 93005; 96361; 96372; 96374; 96375; 97110; 97116; 97161; 97165; 97530; 97535; 99285; C1713; C1776; J0131; J0360; J0690; J0696; J1580; J1644; J2175; J2270; J2370; J2405; J2704; J3490; J7030; Q3014; Q9967

== ENCOUNTER → 2023-05-10 10:49 | Outpatient (BNVA) | payer MEDICARE, MEDICAID, SELFPAY | PROVIDERS: PCP Internal Medicine; Visit Provider Nurse Practitioner Family | DX: Z98.890 Other specified postprocedural states (principal); S72.001A Fracture of unspecified part of neck of right femur, initial encounter for closed fracture; X58.XXXA Exposure to other specified factors, initial encounter | CPT/HCPCS: 73502; 99024 ==

== ENCOUNTER → 2023-06-07 08:24 | Outpatient (BNVA) | payer MEDICARE, MEDICAID, SELFPAY | PROVIDERS: PCP Internal Medicine; Visit Provider Nurse Practitioner Family | DX: Z98.890 Other specified postprocedural states (principal) | CPT/HCPCS: 73502; 99024; 99213 ==

== ENCOUNTER → 2023-11-03 09:27 | Outpatient (BNVA) | payer MEDICARE, MEDICAID, SELFPAY | PROVIDERS: PCP Internal Medicine; Visit Provider Nurse Practitioner | DX: R29.898 Other symptoms and signs involving the musculoskeletal system; S72.001A Fracture of unspecified part of neck of right femur, initial encounter for closed fracture; X58.XXXA Exposure to other specified factors, initial encounter; Z96.641 Presence of right artificial hip joint | CPT/HCPCS: 73502; 99214 ==

== ENCOUNTER 2024-04-06 22:34 | Observation (INO) | payer MEDICARE, MEDICAID, SELFPAY ==
--- NOTE | 2024-04-06 22:35 | ECG_ITS ---
[facility] Test Date: 2024-04-06 Pat Name: Adelaide iMller Department: Room: Gender: Female [employer]: : 1935 Requested By: Arlene Pate Order Number: [id number] Chang MD: Linda Chappell M.D. Measurements Intervals Hurricane Rate: 92 P: 80 OR: 207 QRS: 66 QRSD: 100 T: 0 QT: 298 QTc: 370 Interpretive Statements SINUS RHYTHM WITH FREQUENT SUPRAVENTRICULAR PREMATURE COMPLEXES INCOMPLETE RIGHT BUNDLE BRANCH BLOCK [90+ ms QRS DURATION, TERMINAL R IN V1/V2, 40+ ms S IN I/aVL/V4/V5/V6] NONSPECIFIC ST & T-WAVE ABNORMALITY ABNORMAL RHYTHM ECG Compared to ECG 04/01/2023 03:02:26 T-wave abnormality now present First degree AV block no longer present Electronically Signed On 04-08-2024 20:13:39 CDT by Linda Chappell M.D. [id number]
[2024-04-06 22:41] VITALS: BP 206/133; PULSE 84; RESP 16; TEMP 36.4; O2SAT 97; BMI 16.7
--- NOTE | 2024-04-06 22:42 | CTR_ITS ---
PROCEDURE INFORMATION: Exam: CT Head Without Contrast Exam date and time: 04/06/2024 10:58 PM Age: 89 years old Clinical indication: Injury or trauma; Blunt trauma (contusions or hematomas); Patient HX: EMS arrival from alf for fall. Limited history due to severe demenita. Hypertensive over 200 systolic. TECHNIQUE: Imaging protocol: Computed tomography of the head without contrast. Radiation optimization: All CT scans at this facility use at least one of these dose optimization techniques: automated exposure control; mA and/or kV adjustment per patient size (includes targeted exams where dose is matched to clinical indication); or iterative reconstruction. COMPARISON: CT head wo con* [id number] 04/01/2023 3:41 AM RADIATION DOSE METRICS: Total DLP (mGy-cm): 1071.55 FINDINGS: Brain: No acute intracranial hemorrhage, abnormal extra-axial fluid collection, mass effect, or midline shift. Moderate periventricular and subcortical white matter hypodensities compatible with changes of moderate burden chronic small-vessel disease. Somewhat ill-defined 10 mm area of decreased attenuation within the debora on series 11, image 16, this finding is not seen on the prior exam. Cerebral ventricles: The ventricular system is within normal limits of variation for the patient's age. Paranasal sinuses: Visualized paranasal sinuses are grossly unremarkable. No air fluid levels. Mastoid air cells: Visualized mastoid air cells are well aerated. Bones: No acute fracture. Soft tissues: Grossly unremarkable. Vasculature: Advanced atheromatous changes are seen within the intracranial portions of the bilateral internal carotid arteries and V4 segment of the right vertebral artery. CT/CT head wo con* [id number] IMPRESSION: 1. No acute intracranial hemorrhage. 2. Somewhat ill-defined 10 mm area of decreased attenuation within the debora on series 11, image 16, this finding is not seen on the prior exam. Finding is concerning for acute infarct. An MRI of the brain is suggested for further evaluation if clinically indicated. 3. Moderate periventricular and subcortical white matter hypodensities, findings are most compatible with changes of moderate burden chronic small-vessel disease however cannot exclude superimposed acute on chronic ischemic changes and changes of acute hypertensive encephalopathy.
--- NOTE | 2024-04-06 22:44 | ED_ITS ---
HPI - General Adult 2 General: Chief complaint: General Medical Stated complaint: HIGH BLOOD PRESSURE Time Seen by Provider: 04/06/24 22:34 Source: EMS Mode of arrival: EMS Limitations: altered mental status History of Present Illness: 89-year-old female is here from residential she has a history of severe dementia no history is really available from patient due to her severe dementia she is able to tell her name and othing else and per EMS at her baseline. She had a fall earlier tonight no supposed injury per residential. They are concerned because her blood pressure had been increasing tonight was in the 200s she does have a history of high blood pressure Review of Systems 2 General: Reports: ROS unobtainable due to mental status PFSH ED 2 PFSH: Medical History Fall Hypertension Displaced fracture of right femoral neck UTI (urinary tract infection) Urinary retention Closed hip fracture C1 cervical fracture Dementia Hypothyroidism Surgical History History of hemiarthroplasty of right hip Social History Smoking and tobacco/nicotine status: never used tobacco/nicotine Physical Exam 2 Const: COMMON NORMALS: no acute distress, healthy appearing and alert; negative for patient oriented x3 ORIENTATION/CONSCIOUSNESS: Yes oriented to person; not oriented to place and not oriented to time HENMT: COMMON NORMALS: normocephalic and atraumatic HEAD & SCALP: n ormocephalic and atraumatic Eye: COMMON NORMALS: Equal, round and reactive pupils present and EOMs intact bilaterally PUPIL: Yes Equal, round and reactive pupils present Neck/C-Spine: COMMON NORMALS: full ROM and supple Chest: COMMONS NORMALS: normal inspection of the chest and normal palpation of entire chest wall Resp: COMMON NORMALS: normal respiratory effort, No retractions, No use of accessory muscles and clear to auscultation bilaterally AUSCULTATION: clear to auscultation bilaterally Cardio: COMMON NORMALS: regular rate, regular rhythm and No murmurs present (Cardio) RATE: regular rate RHYTHM: regular rhythm GI: COMMON NORMALS: Normal to inspection, nondistended, normoactive bowel sounds present, Soft to palpation, non-tender and no masses PALPATION: Yes Soft to palpation Extremity: COMMON NORMALS: normal to inspection and full ROM Neuro: COMMON NORMALS: moves all extremities and no focal motor deficits; negative for patient oriented x3 SENSORIUM/ORIENTATION: Yes alert, Yes oriented to person, No oriented to place and No oriented to time Psych: COMMON NORMALS: cooperative; negative for mental status grossly normal Skin: COMMON NORMALS: no rashes or lesions noted and no wounds GENERAL SKIN EXAM: no rashes or lesions noted Course 2 Vital Signs: Vital signs: Vital Signs Temperature 97.5 F L 04/06/24 22:41 Pulse Rate 93 04/07/24 00:00 Respiratory Rate 15 04/07/24 00:00 Blood Pressure 197/151 04/07/24 00:00 Pulse Oximetry 93 04/07/24 00:00 Oxygen Delivery Me thod Room Air 04/07/24 00:00 MDM - General Adult Medical Decision Making Patient presents here with hypertension she had a fall as well head CT here is concerning for possible CVA she also had some chest pain here EKG showed some ST depression initial troponin was elevated up spoke to cardiology Dr. Oreilly she has no signs of a STEMI. I did speak to family about possible hospice they want her to be admitted at this time and treated we will give her Lovenox and will admit for observation Medical Records I reviewed the patient's medical records. Lab Data I reviewed the patient's lab results. 04/06/24 23:10 04/06/24 23:[address] 04/06/24 22:42 IMPRESSION: 1. No acute intracranial hemorrhage. 2. Somewhat ill-defined 10 mm area of decreased attenuation within the debora on series 11, image 16, this finding is not seen on the prior exam. Finding is concerning for acute infarct. An MRI of the brain is suggested for further evaluation if clinically indicated. 3. Moderate periventricular and subcortical white matter hypodensities, findings are most compatible with changes of moderate burden chronic small-vessel disease however cannot exclude superimposed acute on chronic ischemic changes and changes of acute hypertensive encephalopathy. ADDENDUM: 04/07/[address] Pate is aware of the findings per OC support at 12:22 AM CDT on 04/07/2024. The findings were acknowledged and understood. Laboratory Results WBC 5.63 10^3/uL (3.29-11.43) 04/06/24 23:10 RBC 4.10 10^6/uL (3.85-5.65) 04/06/24 23:10 Hgb 12.60 g/dL (11.27-16.99) 04/06/24 23:10 Hct 36.6 % (36-47) 04/06/24 23:10 MCV 89.3 fl (85-98) 04/06/24 23:10 MCH 30.7 pg (27-33) 04/06/24 23:10 MCHC 34.4 g/dL (30-55) 04/06/24 23:10 RDW 13.2 % (12.1-15.1) 04/06/24 23:10 Plt Count 204 10^3/cmm (157-399) 04/06/24 23:10 MPV 9.2 fL (7.4-10.4) 04/06/24 23:10 Neut % (Auto) 57.1 % 04/06/24 23:10 Lymph % (Auto) 24.0 % 04/06/24 23:10 [place] % (Auto) 14.6 % 04/06/24 23:10 Eos % (Auto) 3.4 % 04/06/24 23:10 Baso % (Auto) 0.5 % 04/06/24 23:10 Neut # (Auto) 3.22 10^3/uL (1.8-7.7) 04/06/24 23:10 Lymph # (Auto) 1.4 10^3/uL (0.8-4.8) 04/06/24 23:10 [place] # (Auto) 0.8 10^3/uL (0.2-0.9) 04/06/24 23:10 Eos # (Auto) 0.2 10^3/uL (0.0-0.8) 04/06/24 23:10 Baso # (Auto) 0.0 10^3/uL (0.0-0.1) 04/06/24 23:10 Nucleated RBC % (auto) 0 % 04/06/24 23:10 Nucleated RBCs # 0.0 /100WBC 04/06/24 23:10 Sodium 136 mmol/L (136-145) 04/06/24 23:10 Potassium 3.0 mmol/L (3.5-5.1) L 04/06/24 23:10 Chloride 92 mmol/L (98-107) L 04/06/24 23:10 Carbon Dioxide 31 mmol/L (22-29) H 04/06/24 23:10 Anion Gap 16.0 (5-19) 04/06/24 23:10 BUN 36 mg/dL (8-23) H 04/06/24 23:10 Creatinine 1.4 mg/dL (0.5-0.9) H 04/06/24 23:10 GFR Calculation Not Reportable 04/06/24 23:10 Glucose 106 mg/dL (65-115) 04/06/24 23:10 Calculated Osmolality 291 mOsm/kg (285-295) 04/06/24 23:10 Calcium 8.9 mg/dL (8.5-10.5) 04/06/24 23:10 Total Bilirubin 0.5 mg/dL (0.15-1.2) 04/06/24 23:10 AST 25 U/L (0-32) 04/06/24 23:10 ALT 16 U/L (0-33) 04/06/24 23:10 Alkaline Phosphatase 63 U/L (35-105) 04/06/24 23:10 Troponin T Baseline 112 ng/L (0-10) H* 04/06/24 23:10 Total Protein 6.4 g/dL (6.6-8.7) L 04/06/24 23:10 Albumin 3.9 g/dL (3.5-5.2) 04/06/24 23:10 Globulin 2.5 g/dL (1.3-4.6) 04/06/24 23:10 All radiology interpretation(s) finalized by discharge EKG Data EKG 1: I personally reviewed and interpreted this EKG as follows: EKG interpretation date: 04/06/24 EKG interpretation time: 23:25 Interpretation: nsr hr [address] or t wave abnormalities qrs 100 qtc 348 Computer generated interpretation: Head CT 04/06/24 22:42 IMPRESSION: 1. No acute intracranial hemorrhage. 2. Somewhat ill-defined 10 mm area of decreased attenuation within the debora on series 11, image 16, this finding is not seen on the prior exam. Finding is concerning for acute infarct. An MRI of the brain is suggested for further evaluation if clinically indicated. 3. Moderate periventricular and subcortical white matter hypodensities, findings are most compatible with changes of moderate burden chronic small-vessel disease however cannot exclude superimposed acute on chronic ischemic changes and changes of acute hypertensive encephalopathy. ADDENDUM: 04/07/[address] Pate is aware of the findings per OC support at 12:22 AM CDT on 04/07/2024. The findings were acknowledged and understood. Discharge Plan Discharge Patient Disposition: Admitted As Inpatient Admit Provider: Emmanuel Van Clinical Impression: Hypertension, Abnormal head CT, Dementia, Fall Condition: Stable Coding Level of Care Code ED Gyroscopic Instrument Mechanic for Zeferino Isidro
[2024-04-06] MEDS: hyDRALAzine 20 mg/mL INJ 1 mL 10 MG IVP (23:07)
[2024-04-06 23:09] VITALS: BP 214/115; O2SAT 96
[2024-04-06 23:20] LABS: Basophils % 0.5 %; Eosinophils # 0.2 10^3/uL (0.0-0.8); Eosinophils % 3.4 %; Hematocrit 36.6 % (36-47); Lymphocytes # 1.4 10^3/uL (0.8-4.8); Mean Corpuscular HGB Conc 34.4 g/dL (30-55); Mean Corpuscular Hemoglobin 30.7 pg (27-33); Mean Corpuscular Volume 89.3 fl (85-98); Mean Platelet Volume 9.2 fL (7.4-10.4); Monocytes # 0.8 10^3/uL (0.2-0.9); Monocytes % 14.6 %; Neutrophils # 3.22 10^3/uL (1.8-7.7); Neutrophils % 57.1 %; Nucleated Red Blood Cells % 0 %; Platelet Count 204 10^3/cmm (157-399); Red Cell Distribution Width 13.2 % (12.1-15.1); White Blood Count 5.63 10^3/uL (3.29-11.43)
[2024-04-06 23:41] LABS: Alanine Aminotransferase 16 U/L (0-33); Albumin Level 3.9 g/dL (3.5-5.2); Alkaline Phosphatase 63 U/L (35-105); Aspartate Amino Transferase 25 U/L (0-32); Blood Urea Nitrogen 36 mg/dL (8-23); Calcium 8.9 mg/dL (8.5-10.5); Carbon Dioxide 31 mmol/L (22-29); Chloride 92 mmol/L (98-107); Creatinine Clr Calc Pharmacy 21.4578; Globulin 2.5 g/dL (1.3-4.6); Glucose 106 mg/dL (65-115); Osmolality Calculated 291 mOsm/kg (285-295); Sodium 136 mmol/L (136-145); Total Bilirubin 0.5 mg/dL (0.15-1.2); Total Protein 6.4 g/dL (6.6-8.7)
--- NOTE | 2024-04-06 23:52 | ECG_ITS ---
[facility] Test Date: 2024-04-07 Pat Name: Adelaide Miller Department: Room: 252 Gender: Female Medical And Health Services Manager: : 1935 Requested By: Arlene Pate Order Number: [id number] Chang MD: Linda Chappell M.D. Measurements Intervals [place] Rate: 122 P: 73 [place]: 196 QRS: 60 QRSD: 99 T: -87 QT: 332 QTc: 473 Interpretive Statements SINUS TACHYCARDIA WITH OCCASIONAL SUPRAVENTRICULAR PREMATURE COMPLEXES INCOMPLETE RIGHT BUNDLE BRANCH BLOCK [90+ ms QRS DURATION, TERMINAL R IN V1/V2, 40+ ms S IN I/aVL/V4/V5/V6] MARKED ST DEPRESSION, CONSIDER SUBENDOCARDIAL INJURY [0.2+ mV ST DEPRESSION] ACUTE [place] Compared to ECG 04/06/2024 23:25:18 ST (T wave) deviation now present Sinus rhythm no longer present T-wave abnormality no longer present Electronically Signed On 04-08-2024 20:14:24 CDT by Linda Chappell M.D. [id number]
[2024-04-07] VITALS (10 sets, daily range): BP systolic 123–197; BP diastolic 69–151; PULSE 67–93; RESP 15–19; TEMP 36.4–36.6; O2SAT 92–97
[2024-04-07] MEDS: labetalol 5 mg/mL SDV 20mL 10 MG IVP (00:09)
[2024-04-07] MEDS: aspirin 81 mg Chew Tablet 324 MG PO (00:10)
--- NOTE | 2024-04-07 00:10 | P.HP_ITS ---
Providers/Chief Complaint 2 Admitting Physician: Emmanuel Van MD Primary Care Provider: Real Ambriz DO Chief Complaint: HIGH BLOOD PRESSURE History of Present Illness Adelaide Miller is a 89 year old female with a past medical history significant for Alzheimer's dementia, hypertension, and hypothyroidism who presents from the alf with reported fall. Upon assessment, patient is found to be demented and unable to provide any pertinent HPI. History obtained from chart review as well as collateral information from prior provider. She is a resident of the local alf. She reportedly had a fall earlier in the day. The mechanism of the fall is unknown at this time. Patient currently denies any pain. She currently has no complaints. She was brought to the emergency department for head CT to evaluate for subdural hematoma given fall. There is no hematoma on head CT however there was abnormal findings in the [place] area which were not present on prior head CT a year ago. Upon presentation, her vitals were found to have initially markedly elevated blood pressures, otherwise vitals were unremarkable. Labs showed a normal CBC. CMP with hypokalemia and mildly elevated creatinine, similar to prior checks. Troponin was elevated to 112 ng/L. Patient denies any chest pain or shortness of breath. Urinalysis is yet to be collected. EKG is negative for STEMI, did have some nonspecific ST changes. Review of Systems 2 Narrative: A complete review of systems was obtained and is negative except as stated in HPI. Medications/Allergies Home Medications Medication Instructions Recorded Confirmed Last Taken Type bisacodyl 10 mg rectal suppository 10 mg TN DAILY PRN Constipation 04/01/23 11/03/23 Unknown History diclofenac sodium 1 % topical gel See Rx Instructions .Route .COMPLEX 04/01/23 11/03/23 Unknown History levothyroxine 88 mcg tablet 88 mcg PO DAILY 04/01/23 11/03/23 Unknown History magnesium hydroxide 400 mg/5 mL 30 ml PO DAILY PRN Constipation 04/01/23 11/03/23 Unknown History oral suspension (Milk of Magnesia) sodium phosphates 19 gram-7 118 ml TN DAILY PRN Constipation 04/01/23 11/03/23 Unknown History gram/118 mL enema (Enema Disposable) acetaminophen 500 mg tablet 500 mg PO Q4H PRN Pain #20 tabs 04/04/23 11/03/23 Unknown Rx Allergies Allergy/AdvReac Type Severity Reaction Status Date / Time amphetamine Allergy Unknown Verified 11/03/23 09:39 gabapentin Allergy Unknown Verified 11/03/23 09:39 levofloxacin Allergy Unknown Verified 11/03/23 09:39 nitrofurantoin Allergy Unknown Verified 11/03/23 09:39 sulfamethoxazole Allergy Unknown Verified 11/03/23 09:39 [From Bactrim] trimethoprim [From Bactrim] Allergy Unknown Verified 11/03/23 09:39 PFSH Acute 2 PFSH: Medical History Fall Hypertension Displaced fracture of right femoral neck UTI (urinary tract infection) Urinary retention Closed hip fracture C1 cervical fracture Dementia Hypothyroidism Surgical History History of hemiarthroplasty of right hip Social History Smoking and tobacco/nicotine status: never used tobacco/nicotine Vitals/I&O/Wt Last Vital Signs Temp 97.5 F L 04/06/24 22:41 Pulse 84 04/06/24 22:41 Resp 16 04/06/24 22:41 BP 214/115 04/06/24 23:09 Pulse Ox 96 04/06/24 23:09 O2 Del Method Room Air 04/06/24 23:09 Weight last 48 hrs Weight 49.895 kg Physical Exam 2 Narrative: General: Patient is awake. Sitting in bed. Cachectic appearing. Head: Normocephalic. EOM intact. Neck: No JVD. Cardiovascular: RRR. No gallops. No murmurs. Hypertensive. Lungs: Clear to auscultation, no use of accessory muscles, no crackles or wheezes. Skin: No jaundice. No rashes. Abdomen: Normal bowel sounds, abdomen soft and nontender. Extremities: No cyanosis or clubbing. Musculoskeletal: No swollen or erythematous joints. Neurological: No myoclonus. Speech intact. Facial asymmetry. Severely hard of hearing. Does not follow commands suspect hearing loss contributing to this. A full neurological exam could not be conducted as patient does not follow commands. She moves all 4 extremities. Withdraws to pain in all extremities. Data 04/06/24 23:10 04/06/24 23:10 A&P Assessment and plan (1) Fall: Reported fall at alf, unclear mechanism She denies any pain in any joints No subdural hematoma on CT imaging Fall precautions (2) Abnormal head CT: CTH negative for acute intracranial hemorrhage, showing a somewhat ill-defined 10 mm area of decreased attenuation within the debora, a new compared to CT scan a year ago Radiology recommending MRI Neurochecks Permissive hypertension up to 220/120 mmHg IV hydralazine for SBP greater than 220 mmHg, DBP greater than 120 mmHg Consider antiplatelet or statin pending MRI results (3) Elevated troponin: Troponins elevated Will trend She denies any chest pain or shortness of breath EKG reviewed, nonspecific T wave changes Continuous telemetry monitoring (4) Hypothyroidism: Continue Synthroid Check TSH (5) Hypertension: Allow permissive hypertension as above Hydralazine with blood parameters (6) Dementia: Patient is demented at baseline, she appears to be at her baseline currently (7) Hypokalemia: Replace potassium Check level in a.m. Plan DVT prophylaxis: Heparin Attestations 2 Medical Necessity Statement*: Patient presents with fall from nursing facility, found to have abnormal head imaging with radiology recommending further imaging for evaluation expected hospitalization not to cross 2 midnights. Coding Level of Care Code Acute Code for Chg Fwd Diagnoses Fall W19.XXXA Abnormal head CT R93.0 Elevated troponin R79.89 Hypothyroidism E03.9 Hypertension I10 Dementia F03.90 Hypokalemia E87.6
--- NOTE | 2024-04-07 00:16 | MRR_ITS ---
PROCEDURE INFORMATION: Exam: MR Head Without Contrast Exam date and time: 04/07/2024 1:37 PM Age: 89 years old Clinical indication: Altered mental status/memory loss; Confusion or disorientation; Additional info: Evaluate for stroke TECHNIQUE: Imaging protocol: Magnetic resonance imaging of the head without contrast. COMPARISON: CT head wo con* [id number] 04/06/2024 10:58 PM FINDINGS: Brain: Prominent diffuse cerebral atrophy is noted. There is prominent chronic periventricular white matter ischemic change. There is no evidence of mass effect, hemorrhage or infarct. Cerebral ventricles: Normal. No ventriculomegaly. Bones: Unremarkable. Paranasal sinuses: Normal as visualized. No acute sinusitis. Mastoid air cells: Normal as visualized. No mastoid effusion. Orbital cavities: Unremarkable. Soft tissues: Unremarkable. MR/MR head wo con* [id number] IMPRESSION: 1. No acute findings. 2. Cerebral atrophy is noted along with chronic white matter ischemic changes.
[2024-04-07 00:17] LABS: Troponin(5th) Baseline 112 ng/L (0-10)
--- NOTE | 2024-04-07 01:11 | XRR_ITS ---
PROCEDURE INFORMATION: Exam: XR Chest Exam date and time: 04/07/2024 6:05 AM Age: 89 years old Clinical indication: Shortness of breath; Patient HX: General weakness with SOB; Additional info: Evaluate for pneumonia TECHNIQUE: Imaging protocol: Radiologic exam of the chest. Views: 1 view. COMPARISON: CT chest abdpel w/*[id number] 04/01/2023 3:48 AM FINDINGS: Lungs: Unremarkable. No consolidation. Pleural spaces: Unremarkable. No pleural effusion. No pneumothorax. Heart/Mediastinum: See Vasculature finding. Vasculature: Borderline cardiomegaly and uncoiling of the thoracic aorta. Bones/joints: Unremarkable. XR/XR chest 1V portable [id number] IMPRESSION: No acute findings.
[2024-04-07] MEDS: potassium chloride oral liq 20 mEq/15 mL UDC 40 MEQ PO (01:16)
[2024-04-07] MEDS: enoxaparin 100 mg/mL Syringe 50 MG SUBCUT (01:16)
--- NOTE | 2024-04-07 01:52 | ECG_ITS ---
[facility] Test Date: 2024-04-07 Pat Name: Adelaide Miller Department: Room: 252 Gender: Female Adult Basic Education Manager: : 1935 Requested By: Arlene Pate Order Number: [id number] Chang MD: Linda Chappell M.D. Measurements Intervals [place] Rate: 92 P: 66 [place]: 224 QRS: 63 QRSD: 101 T: 66 QT: 341 QTc: 423 Interpretive Statements SINUS RHYTHM WITH FIRST DEGREE AV BLOCK INCOMPLETE RIGHT BUNDLE BRANCH BLOCK [90+ ms QRS DURATION, TERMINAL R IN V1/V2, 40+ ms S IN I/aVL/V4/V5/V6] NONSPECIFIC ST & T-WAVE ABNORMALITY Compared to ECG 04/07/2024 00:00:38 First degree AV block now present T-wave abnormality now present Sinus tachycardia no longer present ST (T wave) deviation no longer present Electronically Signed On 04-08-2024 20:36:51 CDT by Linda Chappell M.D. [id number]
[2024-04-07 02:08] LABS: Add Urine Microscopic? YES; Bacteria Urine 1+ /hpf; Bilirubin Urine Neg (Negative); Blood Urine Neg (Negative); Glucose Urine UA Norm (Normal); Hyaline Casts Urine 0-4 /lpf; Ketones Urine Negative (Negative); Leukocyte Esterase Urine 1+ (Negative); Nitrate Urine Negative (Negative); Protein Urine 1+ (Negative); RBC Urine 0-4 /hpf (0-2); Squamous Epithelial Cell Urine 0-4 /hpf (0-5); Sulfosalicylic Acid Urine Positive (Negative); Urine Appearance Cloudy (CLEAR); Urine Color Yellow (Yellow); Urobilinogen Urine Neg (Negative); WBC Urine 15-25 /hpf (0-5); pH Urine 8 (5-7)
[2024-04-07 02:12] LABS: Troponin 5 2HR Delta 8.9 ABS# (0-10)
[2024-04-07 02:14] LABS: Anion Gap 16.1 (5-19); Blood Urea Nitrogen 35 mg/dL (8-23); Calcium 8.8 mg/dL (8.5-10.5); Carbon Dioxide 30 mmol/L (22-29); Chloride 93 mmol/L (98-107); Creatinine Clr Calc Pharmacy 27.0322; Glucose 116 mg/dL (65-115); Magnesium 2.3 mg/dL (1.7-2.3); Osmolality Calculated 291 mOsm/kg (285-295); Potassium 3.1 mmol/L (3.5-5.1); Sodium 136 mmol/L (136-145); Troponin 5 2HR 120.9 ng/L (0-10)
[2024-04-07] MEDS: acetaminophen 325 mg Tablet 650 MG PO (02:19)
[2024-04-07] MEDS: HYDROcodone-acetaminophen 5-325 mg Tablet 1 TAB PO (02:39)
[2024-04-07] MEDS: quetiapine 25 mg Tablet PO (02:39)
[2024-04-07 02:56] LABS: Free T4 Free Thyroxine 1.85 ng/dL (0.82-1.77)
--- NOTE | 2024-04-07 05:27 | ECG_ITS ---
[facility] Test Date: 2024-04-07 Pat Name: Adelaide Miller Department: Room: 252 Gender: Female Shipper/Receiver: : 1935 Requested By: Arlene Pate Order Number: [id number] Chang MD: Linda Chappell M.D. Measurements Intervals [place] Rate: 74 P: 69 [place]: 225 QRS: 58 QRSD: 98 T: 0 QT: 465 QTc: 518 Interpretive Statements SINUS RHYTHM WITH FIRST DEGREE AV BLOCK WITH FREQUENT SUPRAVENTRICULAR PREMATURE COMPLEXES INCOMPLETE RIGHT BUNDLE BRANCH BLOCK [90+ ms QRS DURATION, TERMINAL R IN V1/V2, 40+ ms S IN I/aVL/V4/V5/V6] ST DEVIATION AND MODERATE T-WAVE ABNORMALITY, CONSIDER ANTEROLATERAL ISCHEMIA [-0.1+ mV T-WAVE IN V3-V6] Compared to ECG 04/07/2024 00:23:42 Possible ischemia now present T-wave abnormality still present Electronically Signed On 04-08-2024 20:37:20 CDT by Linda Chappell M.D. [id number]
[2024-04-07 06:05] LABS: Troponin 5 6HR 141.7 ng/L (0-10); Troponin 5 6HR Delta 29.7 ng/L (0-12)
[2024-04-07 08:36] LABS: Anion Gap 12.2 (5-19); Blood Urea Nitrogen 35 mg/dL (8-23); Calcium 8.4 mg/dL (8.5-10.5); Carbon Dioxide 31 mmol/L (22-29); Chloride 95 mmol/L (98-107); Glucose 88 mg/dL (65-115); Osmolality Calculated 287 mOsm/kg (285-295); Potassium 3.2 mmol/L (3.5-5.1); Sodium 135 mmol/L (136-145)
[2024-04-07 08:59] LABS: Creatinine Clr Calc Pharmacy 25.1844
[2024-04-07] MEDS: cefTRIAXone 1,000 MG in sodium chloride 0.9% (plus) 50 ML 100 MG IV (09:15)
[2024-04-07 11:16] LABS: Troponin T (5th) Once 143 ng/L (0-10)
--- NOTE | 2024-04-07 11:46 | P.PN_ITS ---
Subjective 2 Subjective: No acute overnight events noted. As per the nurse, [facility] baseline of the patient, patient is demented with transfer only. She is currently at her baseline Medications: Reviewed: Yes Vitals/I&O/Wt Last Vital Signs Temp 97.9 F 04/07/24 07:29 Pulse 71 04/07/24 07:29 Resp 19 H 04/07/24 07:29 BP 154/70 04/07/24 07:29 Pulse Ox 92 04/07/24 07:29 O2 Del Method Room Air 04/07/24 07:29 04/06/24 04/07/24 04/07/24 22:59 06:59 14:59 Intake Total 240 / 240 50 / 50 Output Total 400 / 400 Balance -160 / -160 50 / 50 Weight last 48 hrs Weight 61.008 kg Weight 61.292 kg Weight 49.895 kg Physical Exam 2 Narrative: General: Patient is awake. Sitting in bed. Cachectic appearing. Head: Normocephalic. EOM intact. Neck: No JVD. Cardiovascular: RRR. No gallops. No murmurs. Lungs: Clear to auscultation, no use of accessory muscles, no crackles or wheezes. Skin: No jaundice. No rashes. Abdomen: Normal bowel sounds, abdomen soft and nontender. Extremities: No cyanosis or clubbing. Musculoskeletal: No swollen or erythematous joints. Neurological: No myoclonus. Speech intact. Facial asymmetry. Severely hard of hearing. Does not follow commands suspect hearing loss contributing to this. A full neurological exam could not be conducted as patient does not follow commands. She moves all 4 extremities. Withdraws to pain in all extremities. Data 04/06/24 23:10 04/07/24 07:52 A&P Assessment and plan (1) Fall: Fall precautions (2) Abnormal head CT: CTH negative for acute intracranial hemorrhage, showing a somewhat ill-defined 10 mm area of decreased attenuation within the debora, a new compared to CT scan a year ago Follow-up MRI brain without contrast Neurochecks Permissive hypertension up to 220/120 mmHg IV hydralazine for SBP greater than 220 mmHg, DBP greater than 120 mmHg Consider antiplatelet or statin pending MRI results (3) Elevated troponin: Troponins elevated Will trend, repeat EKG Received aspirin 324 mg in ER She denies any chest pain or shortness of breath EKG reviewed, nonspecific T wave changes Continuous telemetry monitoring (4) Hypothyroidism: Continue Synthroid Check TSH (5) Hypertension: Allow permissive hypertension as above Hydralazine with blood parameters (6) Dementia: Patient is demented at baseline, she appears to be at her baseline currently (7) Hypokalemia: replaced. Plan DVT prophylaxis: Heparin Attestations 2 Medical Necessity Statement*: Patient presents with fall from nursing facility, found to have abnormal head imaging with radiology recommending further imaging for evaluation expected hospitalization not to cross 2 midnights. Time Spent in Patient Care: 20 minutes Coding Level of Care Code Acute Code for Chg Fwd Diagnoses Fall W19.XXXA Abnormal head CT R93.0 Elevated troponin R79.89 Hypothyroidism E03.9 Hypertension I10 Dementia F03.90 Hypokalemia E87.6 Time Spent (min) 20
--- NOTE | 2024-04-07 12:43 | PC.NURSE ---
pt has body pain but wont take her pills which she spits out. Daughter tried to give them to her too but she still spit them out
[2024-04-07] MEDS: ketorolac 30 mg/mL INJ 15 MG IVP (13:18)
[2024-04-07] MEDS: lidocaine 1% 5 ML in potassium chloride premix 100 ML 26.25 ML IV (13:21)
[2024-04-07 18:22] LABS: Troponin T (5th) Once 160 ng/L (0-10)
[2024-04-07] MEDS: aspirin 81 mg EC Tablet PO (19:48)
[2024-04-07] MEDS: clopidogrel 300 mg Tablet 600 MG PO (19:48)
[2024-04-08] VITALS (7 sets, daily range): BP systolic 153–215; BP diastolic 76–96; PULSE 76–91; RESP 16–18; TEMP 36.4–37; O2SAT 95–99
[2024-04-08 05:17] LABS: Basophils % 0.5 %; Eosinophils # 0.2 10^3/uL (0.0-0.8); Eosinophils % 3.9 %; Hematocrit 35.4 % (36-47); Lymphocytes # 0.7 10^3/uL (0.8-4.8); Mean Corpuscular HGB Conc 33.3 g/dL (30-55); Mean Corpuscular Hemoglobin 29.9 pg (27-33); Mean Corpuscular Volume 89.8 fl (85-98); Mean Platelet Volume 9.3 fL (7.4-10.4); Monocytes # 0.5 10^3/uL (0.2-0.9); Monocytes % 8.9 %; Neutrophils # 4.35 10^3/uL (1.8-7.7); Neutrophils % 74.4 %; Nucleated Red Blood Cells % 0 %; Platelet Count 183 10^3/cmm (157-399); Red Blood Count 3.94 10^6/uL (3.85-5.65); Red Cell Distribution Width 13.3 % (12.1-15.1); White Blood Count 5.85 10^3/uL (3.29-11.43)
[2024-04-08 05:43] LABS: Anion Gap 12.5 (5-19); Blood Urea Nitrogen 32 mg/dL (8-23); Calcium 8.7 mg/dL (8.5-10.5); Carbon Dioxide 30 mmol/L (22-29); Chloride 99 mmol/L (98-107); Creatinine Clr Calc Pharmacy 25.1844; Glucose 85 mg/dL (65-115); Osmolality Calculated 292 mOsm/kg (285-295); Potassium 3.5 mmol/L (3.5-5.1); Sodium 138 mmol/L (136-145)
[2024-04-08] MEDS: ketorolac 30 mg/mL INJ 15 MG IVP ×2 (08:30→14:46)
[2024-04-08] MEDS: cefTRIAXone 1,000 MG in sodium chloride 0.9% (plus) 100 ML 200 MG IV (08:31)
[2024-04-08] MEDS: levothyroxine 75 mcg Tablet PO (08:34)
[2024-04-08] MEDS: clopidogrel 75 mg Tablet PO (08:34)
[2024-04-08] MEDS: aspirin 81 mg EC Tablet PO (08:34)
--- NOTE | 2024-04-08 09:33 | P.CONIM_ITS ---
Providers/Reason For Consult 2 Consulting Physician/Specialty*: TRENA Chappell MD. cardiology Reason for Consult*: Is admitted to hospital with history of fall. Known to have dementia. Found to have elevated troponin T Requesting Physician: Dr. Boyd Attending Physician: Ree Boyd MD Primary Care Provider: Real Ambriz DO History of Present Illness History of Present Illness Adelaide Miller is a 89 year old female with a history of severe dementia and impaired hearing apparently sustained a fall yesterday in the fpc. She also was found to have accelerated hypertension. She was brought to the emergency room for further evaluation management. She was found with elevated troponin T. Cardiology consult is requested for further cardiac evaluation recommendations. This patient has no documented chest pain. She has no history for any coronary disease, myocardial infarction or congestive heart failure. She is a fpc for her dementia and generalized debility. She moves around mainly on a wheelchair. Her systolic blood pressure was in the 220 range yesterday. She also was refusing p.o. medication. Today she seems to be back to her baseline, as per the family. She was found to have features of UTI. She is on antibiotics. No fever or chills. No cough. No unusual shortness of breath. Her EKG showed sinus rhythm with features of LVH. No acute ST-T changes. Her baseline troponin ti was 112. She had a 2-hour delta of around 9 and a 6-hour delta of 29. Review of Systems 2 Narrative: CONSTITUTIONAL: No fever or chills. EYES: No blurring of vision or other visual disturbances lately. ENT: Extremely hard of hearing CARDIOVASCULAR: As mentioned above. RESPIRATORY: No significant cough. GASTROINTESTINAL: No hematemesis or melena. GENITOURINARY: Diagnosed with UTI INTEGUMENTARY: No skin rashes or history of skin cancer. NEURO: Chronic dementia, advanced PSYCHIATRIC: No history of psychosis or major depression. HEMATOLOGIC: No bleeding disorders or significant anemia. ENDOCRINE: No history of polyuria or polydipsia. MUSCULOSKELETAL: Generalized osteoarthritis. Difficulty in ambulation. ALLERGY/IMMUNOLOGY: As mentioned above. Medications/Allergies Home Medications Medication Instructions Recorded Confirmed Last Taken Type bisacodyl 10 mg rectal suppository 10 mg NE DAILY PRN Constipation 04/01/23 04/07/24 Unknown History diclofenac sodium 1 % topical gel See Rx Instructions .Route .COMPLEX 04/01/23 04/07/24 Unknown History levothyroxine 88 mcg tablet 88 mcg PO QAM 04/01/23 04/07/24 Unknown History magnesium hydroxide 400 mg/5 mL 30 ml PO DAILY PRN Constipation 04/01/23 04/07/24 Unknown History oral suspension (Milk of Magnesia) sodium phosphates 19 gram-7 118 ml NE DAILY PRN Constipation 04/01/23 04/07/24 Unknown History gram/118 mL enema (Enema Disposable) acetaminophen 500 mg tablet 500 mg PO Q4H PRN Pain #20 tabs 04/04/23 04/07/24 Unknown Rx Pat[place] Opthalmic 1 drp eye-both DAILY PRN Irritation 04/07/24 04/07/24 Unknown History ondansetron HCl 4 mg tablet 4 mg PO Q6H PRN Nausea And Vomiting 04/07/24 04/07/24 Unknown History Allergies Allergy/AdvReac Type Severity Reaction Status Date / Time amphetamine Allergy Unknown Verified 11/03/23 09:39 gabapentin Allergy Unknown Verified 11/03/23 09:39 levofloxacin Allergy Unknown Verified 11/03/23 09:39 nitrofurantoin Allergy Unknown Verified 11/03/23 09:39 sulfamethoxazole Allergy Unknown Verified 11/03/23 09:39 [From Bactrim] trimethoprim [From Bactrim] Allergy Unknown Verified 11/03/23 09:39 Current Medications Generic Name Dose Route Start Last Admin Trade Name Freq PRN Reason Stop Dose Admin Acetaminophen 650 mg 04/07/24 01:11 04/07/24 02:19 Acetaminophen 325 Mg Tablet PO 650 mg Q6H PRN Administration Mild/Mod Pain Or Temp >/= 101 Aspirin 81 mg 04/07/24 18:40 04/08/24 08:34 Aspirin 81 Mg Ec Tablet PO 81 mg DAILY ELIDA Administration Clopidogrel Bisulfate 75 mg 04/08/24 09:00 04/08/24 08:34 Clopidogrel 75 Mg Tablet PO 75 mg DAILY ELIDA Administration Ceftriaxone Sodium 1,000 mg/ 100 mls @ 200 mls/hr 04/08/24 08:15 04/08/24 08:31 Sodium Chloride IV 200 mls/hr Q24H ELIDA Administration Protocol Ketorolac Tromethamine 15 mg 04/07/24 12:51 04/08/24 08:30 Ketorolac 30 Mg/Ml Inj IVP 04/12/24 12:50 15 mg Q6H PRN Administration MODERATE PAIN Levothyroxine Sodium 75 mcg 04/08/24 09:00 04/08/24 08:34 Levothyroxine 75 Mcg Tablet PO 75 mcg DAILY ELIDA Administration Quetiapine Fumarate 25 mg 04/07/24 02:30 04/07/24 02:39 Quetiapine 25 Mg Tablet PO 25 mg ONCE ELIDA Administration PFSH Acute 2 PFSH: Medical History Fall Hypertension Displaced fracture of right femoral neck UTI (urinary tract infection) Urinary retention Closed hip fracture C1 cervical fracture Dementia Hypothyroidism Surgical History History of hemiarthroplasty of right hip Social History Smoking and tobacco/nicotine status: never used tobacco/nicotine Vitals/I&O/Wt Last Vital Signs Temp 97.7 F 04/08/24 07:23 Pulse 79 04/08/24 07:23 Resp 17 04/08/24 07:23 BP 179/80 04/08/24 07:23 Pulse Ox 97 04/08/24 07:23 O2 Del Method Room Air 04/08/24 07:23 04/07/24 04/08/24 04/08/24 22:59 06:59 14:59 Intake Total 157.125 / 215.000 100 / 315.000 120 / 120 Output Total 600 / 600 125 / 125 Balance 157.125 / 215.000 -500 / -285.000 -5 / -5 Weight last 48 hrs Weight 133 lb 11.2 oz Weight 134 lb 8 oz Weight 135 lb 2 oz Weight 110 lb Physical Exam 2 Narrative: GENERAL: The patient is alert and confused. Not in any acute distress. Appears to be chronically debilitated HEENT: No significant pallor, icterus or lymphadenopathy.Oral cavity: There are no mucous membrane lesions. NECK: Trachea appears to be central. No masses noted. No JVD or thyromegaly appreciated. RESPIRATORY: Chest is symmetrical. No intercostals muscle retraction or any accessory muscle activation. There is no chest wall tenderness. Breath sounds are heard bilaterally. No rales or rhonchi heard. No evidence of any consolidation. BREASTS: Deferred. HEART: The heart sounds are normal. No S3 or S4. Short systolic murmur at the lower sternal border. No diastolic murmurs. No pericardial rub ABDOMEN: No vessel pulsations or distention. No tenderness. No organomegaly appreciated. Bowel sounds are normally heard. : Deferred. RECTAL: Deferred. LYMPHATIC: No lymphadenopathy noted in the neck. EXTREMITIES: No edema or cyanosis. No clubbing. Peripheral pulses are weak bilaterally MUSCULOSKELETAL: No acute joint deformities or swelling SKIN: There are no significant rashes or ecchymosis NEUROPSYCHIATRIC: The patient is alert and confused. No focal motor deficits Data 04/08/24 04:54 04/08/24 04:54 Other Labs: Laboratory Last Values WBC 5.85 10^3/uL (3.29-11.43) 04/08/24 04:54 RBC 3.94 10^6/uL (3.85-5.65) 04/08/24 04:54 Hgb 11.80 g/dL (11.27-16.99) 04/08/24 04:54 Hct 35.4 % (36-47) L 04/08/24 04:54 MCV 89.8 fl (85-98) 04/08/24 04:54 MCH 29.9 pg (27-33) 04/08/24 04:54 MCHC 33.3 g/dL (30-55) 04/08/24 04:54 RDW 13.3 % (12.1-15.1) 04/08/24 04:54 Plt Count 183 10^3/cmm (157-399) 04/08/24 04:54 MPV 9.3 fL (7.4-10.4) 04/08/24 04:54 Neut % (Auto) 74.4 % 04/08/24 04:54 Lymph % (Auto) 12.0 % 04/08/24 04:54 [place] % (Auto) 8.9 % 04/08/24 04:54 Eos % (Auto) 3.9 % 04/08/24 04:54 Baso % (Auto) 0.5 % 04/08/24 04:54 Neut # (Auto) 4.35 10^3/uL (1.8-7.7) 04/08/24 04:54 Lymph # (Auto) 0.7 10^3/uL (0.8-4.8) L 04/08/24 04:54 [place] # (Auto) 0.5 10^3/uL (0.2-0.9) 04/08/24 04:54 Eos # (Auto) 0.2 10^3/uL (0.0-0.8) 04/08/24 04:54 Baso # (Auto) 0.0 10^3/uL (0.0-0.1) 04/08/24 04:54 Nucleated RBC % (auto) 0 % 04/08/24 04:54 Nucleated RBCs # 0.0 /100WBC 04/08/24 04:54 Sodium 138 mmol/L (136-145) 04/08/24 04:54 Potassium 3.5 mmol/L (3.5-5.1) 04/08/24 04:54 Chloride 99 mmol/L (98-107) 04/08/24 04:54 Carbon Dioxide 30 mmol/L (22-29) H 04/08/24 04:54 Anion Gap 12.5 (5-19) 04/08/24 04:54 BUN 32 mg/dL (8-23) H 04/08/24 04:54 Creatinine 1.5 mg/dL (0.5-0.9) H 04/08/24 04:54 GFR Calculation Not Reportable 04/08/24 04:54 Glucose 85 mg/dL (65-115) 04/08/24 04:54 Calculated Osmolality 292 mOsm/kg (285-295) 04/08/24 04:54 Calcium 8.7 mg/dL (8.5-10.5) 04/08/24 04:54 Magnesium 2.3 mg/dL (1.7-2.3) 04/07/24 01:29 Total Bilirubin 0.5 mg/dL (0.15-1.2) 04/06/24 23:10 AST 25 U/L (0-32) 04/06/24 23:10 ALT 16 U/L (0-33) 04/06/24 23:10 Alkaline Phosphatase 63 U/L (35-105) 04/06/24 23:10 Troponin T 5th Gen ng/L 160 ng/L (0-10) H* 04/07/24 17:50 Troponin T Baseline 112 ng/L (0-10) H* 04/06/24 23:10 Troponin T 120 Minute 120.9 ng/L (0-10) H 04/07/24 01:29 Delta Troponin T 8.9 ABS# (0-10) 04/07/24 01:29 Troponin T Hi Sens 6Hr 141.7 ng/L (0-10) H 04/07/24 05:20 Troponin T Hi Sens 6Hr Delta 29.7 ng/L (0-12) H* 04/07/24 05:20 Total Protein 6.4 g/dL (6.6-8.7) L 04/06/24 23:10 Albumin 3.9 g/dL (3.5-5.2) 04/06/24 23:10 Globulin 2.5 g/dL (1.3-4.6) 04/06/24 23:10 TSH 0.20 uIU/mL (0.27-4.20) L 04/06/24 23:10 Free T4 1.85 ng/dL (0.82-1.77) H 04/07/24 01:29 Urine Color Yellow (Yellow) 04/07/24 01:37 Urine Appearance Cloudy (CLEAR) A 04/07/24 01:37 Urine pH 8 (5-7) H 04/07/24 01:37 Ur Specific [place] 1.010 (1.005-1.030) 04/07/24 01:37 Urine Protein 1+ (Negative) H 04/07/24 01:37 Urine Glucose (UA) Norm (Normal) 04/07/24 01:37 Urine Ketones Negative (Negative) 04/07/24 01:37 Urine Blood Neg (Negative) 04/07/24 01:37 Urine Nitrate Negative (Negative) 04/07/24 01:37 Urine Bilirubin Neg (Negative) 04/07/24 01:37 Prot Sulfosalicylic Acd Positive (Negative) 04/07/24 01:37 Urine Urobilinogen Neg mg/dL (Negative) 04/07/24 01:37 Ur Leukocyte Esterase 1+ (Negative) H 04/07/24 01:37 Urine RBC 0-4 /hpf (0-2) H 04/07/24 01:37 Urine WBC 15-25 /hpf (0-5) H 04/07/24 01:37 Ur Squamous Epith Cells 0-4 /hpf (0-5) H 04/07/24 01:37 Amorphous Sediment Not Reportable 04/07/24 01:37 Urine Bacteria 1+ /hpf (NONE) H 04/07/24 01:37 Hyaline Casts 0-4 /lpf H 04/07/24 01:37 A&P Assessment and plan (1) Elevated troponin: Elevated troponin T, may suggest an [id number] myocardial infarction. EKG changes are nonspecific. Because of the patient's severe dementia, it is difficult to evaluate her symptoms. It may be appropriate to is treated with aspirin and Plavix. Because of the accelerated hypertension and dementia, I may hold off on the IV heparin. She may be given subcu Lovenox for DVT prophylaxis. (2) Accelerated hypertension: Blood pressure seems to be slowly getting under control. May gradually advance the antihypertensive medications. (3) AGUSTÍN (acute kidney injury): The patient may be carefully treated with IV fluids (4) Acute UTI: Management as per the primary (5) Dementia: Management as per the primary Qualifiers: Dementia type: unspecified type Dementia behavioral or psychological symptom: with mood disturbance Dementia severity: severe Qualified Code(s): F 03.C3 - Unspecified dementia, severe, with mood disturbance (6) Hearing impairment: Qualifiers: Hearing loss type: unspecified Laterality: bilateral Qualified Code(s): H91.93 - Unspecified hearing loss, bilateral Plan The echocardiogram was reviewed. The LV ejection fraction was within normal limits. No wall motion abnormalities were noted. Patient the patient clinical progress, further recommendations will be made. In view of the patient's advanced age and multiple comorbidities, optimizing the medical treatment would be the plan of action. The family has decided to keep the patient on a limited CODE STATUS. Consult Attestations 2 Medical Necessity Statement: Deferred to the primary Coding Level of Care Code 88684 Diagnoses Elevated troponin R79.89 Accelerated hypertension I10 AGUSTÍN (acute kidney injury) N17.9 Acute UTI N39.0 Severe dementia with mood disturbance, unspecified dementia type F03.C3 Dementia type: unspecified type Dementia behavioral or psychological symptom: with mood disturbance Dementia severity: severe Bilateral hearing loss, unspecified hearing loss type H91.93 Hearing loss type: unspecified Laterality: bilateral
--- NOTE | 2024-04-08 09:34 | USCV_ITS ---
Adelaide Miller Age: 89 Gender: F : 1935 Exam Date: 04/08/2024 10:52 Ordering Phys: Linda Chappell MD ([email or web address]) Technologist: Carlos Grider [place] [facility] [place]ication: Non st elevation BP: 179 / 80 HR: Rhythm: Sinus Technical Quality: Adequate MEASUREMENTS (Male / Female) Normal Values 2D ECHO LV Diastolic Diameter PLAX 3.8 cm 4.2 - 5.9 / 3.9 - 5.3 cm IVS Diastolic Thickness 1.1 cm 0.6 - 1.0 / 0.6 - 0.9 cm IVS Systolic Thickness 1.4 cm LVPW Diastolic Thickness 1.3 cm 0.6 - 1.0 / 0.6 - 0.9 cm LVPW Systolic Thickness 1.6 cm LVOT Diameter 2.0 cm LV Ejection Fraction 2D Teich 84.1 % LV Ejection Fraction MOD 2C 63.0 % LV Ejection Fraction 2C AL 64.5 % LA Diameter 3.2 cm RA Systolic Volume 4C AL 26.3 ml RA Systolic Volume 4C MOD 26.5 ml LA Sys Volume AL 25.6 cm cubed LA Sys Volume Index AL 15.1 cm cubed/m squared Aorta at Sinotubular Diameter 2.2 cm DOPPLER TR Peak Velocity 113.0 cm/s TR Peak Gradient 5.1 mmHg TR Mean Velocity 88.0 cm/s TR Mean Gradient 3.4 mmHg TR Velocity Time Integral 24.2 cm PV Peak Velocity 72.0 cm/s RV Ejection Time 0.4 s FINDINGS Left Ventricle Mild to moderate constantly due to the hypertrophy. Normal LV ejection fraction of 64%.no regional wall motion abnormalities. Grade I/IV diastolic dysfunction (abnormal relaxation filling pattern), normal to mildly elevated filling pressures. Right Ventricle The right ventricle is normal in size and function. Right Atrium The right atrium is normal in size. Left Atrium The left atrium is normal in size. Mitral Valve Moderate mitral annular calcification. Aortic Valve Thickened aortic valve. Tricuspid Valve No gross abnormalities noted Pulmonic Valve Structurally normal pulmonic valve. Pericardium Normal pericardium without effusion. Aorta Normal ascending aorta dimension. IVC The inferior vena cava appears normal. CONCLUSIONS Mild to moderate constantly due to the hypertrophy. Normal LV ejection fraction of 64%.no regional wall motion abnormalities. Grade I/IV diastolic dysfunction (abnormal relaxation filling pattern), normal to mildly elevated filling pressures. Thickened aortic valve. Moderate mitral annular calcification. There is no pericardial effusion. There are no intracardiac masses. Technically somewhat difficult study because of the poor ultrasonic window. No similar previous studies are available for comparison Dr Linda Chappell MD [facility] (Electronically Signed) Final Date: 08 April 2024 16:17 S
--- NOTE | 2024-04-08 12:13 | P.PN_ITS ---
Subjective 2 Subjective: No acute overnight events noted. She is currently at her baseline Medications: Reviewed: Yes Vitals/I&O/Wt Last Vital Signs Temp 97.7 F 04/08/24 07:23 Pulse 79 04/08/24 07:23 Resp 17 04/08/24 07:23 BP 179/80 04/08/24 07:23 Pulse Ox 97 04/08/24 07:23 O2 Del Method Room Air 04/08/24 07:23 04/07/24 04/08/24 04/08/24 22:59 06:59 14:59 Intake Total 157.125 / 215.000 100 / 315.000 220 / 220 Output Total 600 / 600 125 / 125 Balance 157.125 / 215.000 -500 / -285.000 95 / 95 Weight last 48 hrs Weight 60.645 kg Weight 61.008 kg Weight 61.292 kg Weight 49.895 kg Physical Exam 2 Narrative: General: Patient is awake. Sitting in bed. Cachectic appearing. Head: Normocephalic. EOM intact. Neck: No JVD. Cardiovascular: RRR. No gallops. No murmurs. Lungs: Clear to auscultation, no use of accessory muscles, no crackles or wheezes. Skin: No jaundice. No rashes. Abdomen: Normal bowel sounds, abdomen soft and nontender. Extremities: No cyanosis or clubbing. Musculoskeletal: No swollen or erythematous joints. Neurological: No myoclonus. Speech intact. Facial asymmetry. Severely hard of hearing. Does not follow commands suspect hearing loss contributing to this. A full neurological exam could not be conducted as patient does not follow commands. She moves all 4 extremities. Withdraws to pain in all extremities. Data 04/08/24 04:54 04/08/24 04:54 A&P Assessment and plan (1) Fall: (2) Abnormal head CT: (3) Elevated troponin: (4) Hypothyroidism: (5) Hypertension: (6) Dementia: (7) Hypokalemia: Plan (1) Fall: Fall precautions (2) Abnormal head CT: CTH negative for acute intracranial hemorrhage, showing a somewhat ill-defined 10 mm area of decreased attenuation within the debora, a new compared to CT scan a year ago Follow-up MRI brain without contrast Neurochecks Permissive hypertension up to 220/120 mmHg IV hydralazine for SBP greater than 220 mmHg, DBP greater than 120 mmHg Consider antiplatelet or statin pending MRI results (3) Elevated troponin: Troponins elevated Received aspirin 324 mg in ER She denies any chest pain or shortness of breath EKG reviewed, nonspecific T wave changes Continuous telemetry monitoring Follow up cardiology consult. (4) Hypothyroidism: Continue Synthroid Check TSH (5) Hypertension: Allow permissive hypertension as above Hydralazine with blood parameters (6) Dementia: Patient is demented at baseline, she appears to be at her baseline currently (7) Hypokalemia: replaced. Plan DVT prophylaxis: Heparin Soft diet Discussed with daughter about advanced directives-she is limited resuscitation, no mechanical ventilator Attestations 2 Medical Necessity Statement*: Patient is here s/p fall likely secondary to UTI, and found to have elevated troponins likely NSTEMI , need cardiology follow-up . Negative workup for stroke Time Spent in Patient Care: 15 minutes Coding Level of Care Code Acute Code for Chg Fwd Diagnoses Fall W19.XXXA Abnormal head CT R93.0 Elevated troponin R79.89 Hypothyroidism E03.9 Hypertension I10 Dementia F03.90 Hypokalemia E87.6 Time Spent (min) 15
[2024-04-08] MEDS: acetaminophen 325 mg Tablet 650 MG PO ×2 (12:51→20:14)
[2024-04-08 14:26] LABS: Add Urine Microscopic? YES; Bilirubin Urine Neg (Negative); Blood Urine 2+ (Negative); Glucose Urine UA Norm (Normal); Ketones Urine 1+ (Negative); Leukocyte Esterase Urine 2+ (Negative); Nitrate Urine Negative (Negative); Protein Urine 3+ (Negative); Specific Gravity, Urine 1.015 (1.005-1.030); Urine Appearance Slightly Cloudy (CLEAR); Urine Color Yellow (Yellow); Urobilinogen Urine Norm (Negative); pH Urine 6 (5-7)
[2024-04-08 14:27] LABS: Add Urine Culture? Yes; Bacteria Urine 1+ /hpf; Mucus Urine 2+ /hpf
[2024-04-08] MEDS: enoxaparin 40 mg/0.4 mL Syringe SUBCUT (20:14)
[2024-04-08] MEDS: haloperidol inj 5 mg/mL INJ 1 mL 2 MG IVP (23:00)
[2024-04-08] MEDS: hyDRALAzine 20 mg/mL INJ 1 mL 10 MG IVP (23:38)
[2024-04-09] MEDS: diphenhydrAMINE 50 mg/mL SDV 1mL 25 MG IVP (00:49)
[2024-04-09 04:00] VITALS: BP 211/95; PULSE 112; RESP 20; TEMP 36.7; O2SAT 93
[2024-04-09] MEDS: ketorolac 30 mg/mL INJ 15 MG IVP (04:17)
[2024-04-09] MEDS: hyDRALAzine 20 mg/mL INJ 1 mL 10 MG IVP (04:18)
[2024-04-09 08:00] VITALS: BP 197/85; PULSE 102; RESP 16; TEMP 36.4; O2SAT 94
[2024-04-09] MEDS: cefTRIAXone 1,000 MG in sodium chloride 0.9% (plus) 100 ML 200 MG IV (08:49)
[2024-04-09] MEDS: levothyroxine 75 mcg Tablet PO (08:49)
[2024-04-09] MEDS: clopidogrel 75 mg Tablet PO (08:49)
[2024-04-09] MEDS: aspirin 81 mg EC Tablet PO (08:49)
--- NOTE | 2024-04-09 09:11 | PC.CHAP ---
Pastoral Care Encounter/Spiritual Assessment Type of Contact [] Declined barkeeper visit [] Patient/Family/Request visit [] Outpatient visit [] Follow-up visit [] Physician referral [] Code/Alert [x] Routine visit [] Staff referral [] Actively dying [] Patient sleeping [] Family support [] [] Out of room [] Palliative care [] [] Receiving care in room [] Pre-surgical visit [] Trauma [] Long length of stay [] ICU visit [] Other: Relational/Emotional Strength [] Patient feels connected with others/family/visitors/staff [] Distress [] Loneliness/isolation [] Abandonment Spirituality of Patient [x] Person of Sury [] Attends Tenriism of their Sury [x] Believes in Prayer [] Reads Bible or Voodoo materials [] There are Spiritual issues to be addressed Crop Duster Interventions [x] Prayer [x] Active listening [] Non-anxious presence [] Spiritual/emotional support [] Crisis/trauma care [] Spiritual counseling [] Bereavement support [] Provided bereavement packet [x] Provided Bible/devotional materials [] Provided toy/stuffed animal, coloring book to patient or family member [] Provided Communion [] Anointing/[place] [] Salvation [x] Completed spiritual assessment [] Other: Impact on Illness or Injury [] Angry [] Fearful [] Anxious [] Often cries [] Exhaustion [] Unable to work [] Unable to attend yazidism [] Unable to walk/stand [] Unable to read [] Unable to drive [] Unable to eat/drink [] Unable to sleep [] Unable to be with family [] Patient intubated [] Other: Summary Time spent with patient 10 min
--- NOTE | 2024-04-09 10:55 | PM.DCS ---
Discharge Providers Date of Admission: 04/07/24 00:00 Date of Discharge: April 09, 2024 Attending Provider at Admission: Emmanuel Van MD Attending Provider at Discharge: Ree Boyd MD Primary Care Provider: Real Ambriz DO Diagnoses at Discharge Discharge Diagnosis (1) Elevated troponin: Status: Acute (2) Accelerated hypertension: Status: Acute (3) AGUSTÍN (acute kidney injury): Status: Inactive (4) Acute UTI: Status: Inactive (5) Dementia: Status: Acute Qualifiers: Dementia behavioral or psychological symptom: with mood disturbance Dementia severity: severe Dementia type: unspecified type Qualified Code(s): F03.C3 - Unspecified dementia, severe, with mood disturbance (6) Hearing impairment: Status: Acute Qualifiers: Hearing loss type: unspecified Laterality: bilateral Qualified Code(s): H91.93 - Unspecified hearing loss, bilateral Reason for Visit Reason for Visit: HIGH BLOOD PRESSURE Brief History: Adelaide Miller is a 89 year old female with a past medical history significant for Alzheimer's dementia, hypertension, and hypothyroidism who [facility]. Upon assessment, patient is found to be demented and unable to provide any pertinent HPI. History obtained from chart review as well as collateral information from prior provider. She [facility] a [facility] the local [facility]. She reportedly had a fall earlier in the day. The mechanism of the fall is unknown at this time. Patient currently denies any pain. She currently has no complaints. She was brought to the emergency department for head CT to evaluate for subdural hematoma given fall. There is no hematoma on head CT however there was abnormal findings in the pontine area which were not present on prior head CT a year ago. Upon presentation, her vitals were found to have initially markedly elevated blood pressures, otherwise vitals were unremarkable. Labs showed a normal CBC. CMP with hypokalemia and mildly elevated creatinine, similar to prior checks. Troponin was elevated to 112 ng/L. Patient denies any chest pain or shortness of breath. Urinalysis is yet to be collected. EKG is negative for STEMI, did have some nonspecific ST changes. Hospital Course Hospital Course She was presumed to have fallen from infection versus stroke. She had a CT head done which was negative for acute stroke. She also had an MRI head without contrast which did not show any acute stroke. She was found to have UTI which was treated with ,IV ceftriaxone 1 g daily, her preliminary urine culture was negative. She had elevated troponins on admission and abnormal EKG which was not significant . Cardiology consulted and as per them she might had NSTEMI with nonspecific EKG changes but given her dementia it was difficult to evaluate her chest pain. She was started on Plavix 75 mg daily, no plan for IV heparin secondary to accelerated hypertension. She is hemodynamically stable, afebrile, confused at baseline due to Alzheimer's dementia, will discharge her back to subacute nursing facility. Physical Exam Narrative: General: Patient is awake. Sitting in bed. Cachectic appearing. Confused at baseline Head: Normocephalic. EOM intact. Neck: No JVD. Cardiovascular: RRR. No gallops. No murmurs. Lungs: Clear to auscultation, no use of accessory muscles, no crackles or wheezes. Skin: No jaundice. No rashes. Abdomen: Normal bowel sounds, abdomen soft and nontender. Extremities: No cyanosis or clubbing. Musculoskeletal: No swollen or erythematous joints. Neurological: No myoclonus. Speech intact. Facial asymmetry. Severely hard of hearing. Does not follow commands suspect hearing loss contributing to this. A full neurological exam could not be conducted as patient does not follow commands. She moves all 4 extremities. Withdraws to pain in all extremities. Discharge Data Studies Completed and Pending Completed Studies During Hospitalization Category Date Time Status CT head wo con* [id number] Stat Cat Scan 04/06/24 22:42 Completed XR chest 1V portable [id number] Routine Exams 04/07/24 01:11 Completed MR head wo con* [id number] Routine MRI 04/07/24 00:16 Completed CV. echo complete* [id number] Routine Ultrasound 04/08/24 09:34 Completed Pending at discharge Category Date Time Status BMP [Basic Metabolic Panel] AM LABS Lab 04/09/24 04:00 Ordered COVID [SARS Covid-2 Antigen] Routine Lab 04/09/24 07:00 Uncollected Urine Culture Stat Lab 04/08/24 13:09 Results Radiology Impressions Head CT 04/06/24 22:42 IMPRESSION: 1. No acute intracranial hemorrhage. 2. Somewhat ill-defined 10 mm area of decreased attenuation within the debora on series 11, image 16, this finding is not seen on the prior exam. Finding is concerning for acute infarct. An MRI of the brain is suggested for further evaluation if clinically indicated. 3. Moderate periventricular and subcortical white matter hypodensities, findings are most compatible with changes of moderate burden chronic small-vessel disease however cannot exclude superimposed acute on chronic ischemic changes and changes of acute hypertensive encephalopathy. ADDENDUM: 04/07/[address] Pate is aware of the findings per OC support at 12:22 AM CDT on 04/07/2024. The findings were acknowledged and understood. Head MRI 04/07/24 00:16 IMPRESSION: 1. No acute findings. 2. Cerebral atrophy is noted along with chronic white matter ischemic changes. Chest X-Ray 04/07/24 01:11 IMPRESSION: No acute findings. Laboratory Results WBC 5.85 10^3/uL (3.29-11.43) 04/08/24 04:54 RBC 3.94 10^6/uL (3.85-5.65) 04/08/24 04:54 Hgb 11.80 g/dL (11.27-16.99) 04/08/24 04:54 Hct 35.4 % (36-47) L 04/08/24 04:54 MCV 89.8 fl (85-98) 04/08/24 04:54 MCH 29.9 pg (27-33) 04/08/24 04:54 MCHC 33.3 g/dL (30-55) 04/08/24 04:54 RDW 13.3 % (12.1-15.1) 04/08/24 04:54 Plt Count 183 10^3/cmm (157-399) 04/08/24 04:54 MPV 9.3 fL (7.4-10.4) 04/08/24 04:54 Neut % (Auto) 74.4 % 04/08/24 04:54 Lymph % (Auto) 12.0 % 04/08/24 04:54 [place] % (Auto) 8.9 % 04/08/24 04:54 Eos % (Auto) 3.9 % 04/08/24 04:54 Baso % (Auto) 0.5 % 04/08/24 04:54 Neut # (Auto) 4.35 10^3/uL (1.8-7.7) 04/08/24 04:54 Lymph # (Auto) 0.7 10^3/uL (0.8-4.8) L 04/08/24 04:54 [place] # (Auto) 0.5 10^3/uL (0.2-0.9) 04/08/24 04:54 Eos # (Auto) 0.2 10^3/uL (0.0-0.8) 04/08/24 04:54 Baso # (Auto) 0.0 10^3/uL (0.0-0.1) 04/08/24 04:54 Nucleated RBC % (auto) 0 % 04/08/24 04:54 Nucleated RBCs # 0.0 /100WBC 04/08/24 04:54 Sodium 138 mmol/L (136-145) 04/08/24 04:54 Potassium 3.5 mmol/L (3.5-5.1) 04/08/24 04:54 Chloride 99 mmol/L (98-107) 04/08/24 04:54 Carbon Dioxide 30 mmol/L (22-29) H 04/08/24 04:54 Anion Gap 12.5 (5-19) 04/08/24 04:54 BUN 32 mg/dL (8-23) H 04/08/24 04:54 Creatinine 1.5 mg/dL (0.5-0.9) H 04/08/24 04:54 GFR Calculation Not Reportable 04/08/24 04:54 Glucose 85 mg/dL (65-115) 04/08/24 04:54 Calculated Osmolality 292 mOsm/kg (285-295) 04/08/24 04:54 Calcium 8.7 mg/dL (8.5-10.5) 04/08/24 04:54 Magnesium 2.3 mg/dL (1.7-2.3) 04/07/24 01:29 Total Bilirubin 0.5 mg/dL (0.15-1.2) 04/06/24 23:10 AST 25 U/L (0-32) 04/06/24 23:10 ALT 16 U/L (0-33) 04/06/24 23:10 Alkaline Phosphatase 63 U/L (35-105) 04/06/24 23:10 Troponin T 5th Gen ng/L 160 ng/L (0-10) H* 04/07/24 17:50 Troponin T Baseline 112 ng/L (0-10) H* 04/06/24 23:10 Troponin T 120 Minute 120.9 ng/L (0-10) H 04/07/24 01:29 Delta Troponin T 8.9 ABS# (0-10) 04/07/24 01:29 Troponin T Hi Sens 6Hr 141.7 ng/L (0-10) H 04/07/24 05:20 Troponin T Hi Sens 6Hr Delta 29.7 ng/L (0-12) H* 04/07/24 05:20 Total Protein 6.4 g/dL (6.6-8.7) L 04/06/24 23:10 Albumin 3.9 g/dL (3.5-5.2) 04/06/24 23:10 Globulin 2.5 g/dL (1.3-4.6) 04/06/24 23:10 TSH 0.20 uIU/mL (0.27-4.20) L 04/06/24 23:10 Free T4 1.85 ng/dL (0.82-1.77) H 04/07/24 01:29 Urine Color Yellow (Yellow) 04/08/24 13:09 Urine Appearance Slightly cloudy (CLEAR) 04/08/24 13:09 Urine pH 6 (5-7) 04/08/24 13:09 Ur Specific [place] 1.015 (1.005-1.030) 04/08/24 13:09 Urine Protein 3+ (Negative) H 04/08/24 13:09 Urine Glucose (UA) Norm (Normal) 04/08/24 13:09 Urine Ketones 1+ (Negative) H 04/08/24 13:09 Urine Blood 2+ (Negative) H 04/08/24 13:09 Urine Nitrate Negative (Negative) 04/08/24 13:09 Urine Bilirubin Neg (Negative) 04/08/24 13:09 Prot Sulfosalicylic Acd Positive (Negative) 04/07/24 01:37 Urine Urobilinogen Norm mg/dL (Negative) 04/08/24 13:09 Ur Leukocyte Esterase 2+ (Negative) H 04/08/24 13:09 Urine RBC 5-10 /hpf (0-2) H 04/08/24 13:09 Urine WBC 10-15 /hpf (0-5) H 04/08/24 13:09 Ur Squamous Epith Cells 5-10 /hpf (0-5) H 04/08/24 13:09 Amorphous Sediment Not Reportable 04/08/24 13:09 Urine Bacteria 1+ /hpf (NONE) H 04/08/24 13:09 Hyaline Casts 0-4 /lpf H 04/07/24 01:37 Urine Mucus 2+ /hpf 04/08/24 13:09 Vitals Last Vital Signs Temp 97.6 F 04/09/24 08:00 Pulse 102 H 04/09/24 08:00 Resp 16 04/09/24 08:00 BP 197/85 04/09/24 08:00 Pulse Ox 94 04/09/24 08:00 O2 Del Method Room Air 04/09/24 08:00 Discharge Plan Discharge Patient Disposition: Xfer [facility] Condition: Stable Prescriptions: New levothyroxine 75 mcg Tablet 75 mcg PO DAILY 60 Days Qty: 60 0RF Refresh P.M. 57.3-42.5 % Ointment 1 applic eye-both BEDTIME PRN (Reason: Dry Eye(S)) 7 Days Qty: 3.5 0RF aspirin 81 mg Tablet,Delayed Release (Dr/Ec) 81 mg PO DAILY 14 Days Qty: 14 0RF quetiapine 25 mg Tablet 25 mg PO ONCE 30 Days Qty: 30 0RF clopidogrel 75 mg Tablet 75 mg PO DAILY 14 Days Qty: 14 0RF levofloxacin 750 mg tablet 750 mg PO DAILY 7 Days Qty: 7 0RF Continued magnesium hydroxide [Milk of Magnesia] 400 mg/5 mL Suspension 30 ml PO DAILY PRN (Reason: Constipation) bisacodyl 10 mg Suppository 10 mg MI DAILY PRN (Reason: Constipation) Enema Disposable 19-7 gram/118 mL Enema 118 ml MI DAILY PRN (Reason: Constipation) diclofenac sodium 1 % gel See Rx Instructions .ROUTE .COMPLEX Rx Instructions: apply to right knee topically two times a day acetaminophen 500 mg Tablet 500 mg PO Q4H PRN (Reason: Pain) Qty: 20 0RF ondansetron HCl 4 mg Tablet 4 mg PO Q6H PRN (Reason: Nausea And Vomiting) Pataday Opthalmic 1 drp eye-both DAILY PRN (Reason: Irritation) Discontinued levothyroxine 88 mcg tablet 88 mcg PO QAM Discharge Orders: Discharge Order (Routine); Ordered 04/09/24 Ordered By: Ree Boyd Referrals: Real Ambriz DO [Primary Care Provider] - Discharge Diet: Regular Discharge Activity: Increase activity as tolerated Patient Instructions: Opioid Safety Discharge Attestations Time Spent in Discharge Care*: less than 30 min Quality Metrics Clinical Quality Measures [ No reported AMI, CVA or VTE this stay] Coding Level of Care Code Acute Code for Chg Fwd Diagnoses Elevated troponin R79.89 Accelerated hypertension I10 AGUSTÍN (acute kidney injury) N17.9 Acute UTI N39.0 Severe dementia with mood disturbance, unspecified dementia type F03.C3 Dementia behavioral or psychological symptom: with mood disturbance Dementia severity: severe Dementia type: unspecified type Bilateral hearing loss, unspecified hearing loss type H91.93 Hearing loss type: unspecified Laterality: bilateral Time Spent (min) 20
[2024-04-09 11:31] LABS: SARS Covid-2 Antigen negative (Negative)
[2024-04-09 12:00] VITALS: BP 109/62; PULSE 116; RESP 20; TEMP 37; O2SAT 96
[2024-04-09 12:23] LABS: Anion Gap 21.4 (5-19); Blood Urea Nitrogen 38 mg/dL (8-23); Calcium 9.3 mg/dL (8.5-10.5); Carbon Dioxide 23 mmol/L (22-29); Chloride 95 mmol/L (98-107); Glucose 127 mg/dL (65-115); Osmolality Calculated 293 mOsm/kg (285-295); Potassium 3.4 mmol/L (3.5-5.1); Sodium 136 mmol/L (136-145)
[2024-04-09 12:26] LABS: Creatinine Clr Calc Pharmacy 26.4449
--- NOTE | 2024-04-09 12:31 | PC.NURSE ---
report called to Damaris at [facility]
== END 2024-04-09 12:56 | disposition skilled nursing facility (03) ==
LOC: ER 22:52 → MEDSURG 04-07 00:04
PROVIDERS: Admitting Provider Internal Medicine; Emergency Provider Emergency Medicine; PCP Internal Medicine; Visit Provider Internal Medicine
DX: Z91.81 History of falling (principal); R79.89 Other specified abnormal findings of blood chemistry; I10 Essential (primary) hypertension; N17.9 Acute kidney failure, unspecified; N39.0 Urinary tract infection, site not specified; F03.C3 Unspecified dementia, severe, with mood disturbance; H91.93 Unspecified hearing loss, bilateral; E87.6 Hypokalemia; E03.9 Hypothyroidism, unspecified; F03.90 Unspecified dementia, unspecified severity, without behavioral disturbance, psychotic disturbance, mood disturbance, and anxiety; F03.C0 Unspecified dementia, severe, without behavioral disturbance, psychotic disturbance, mood disturbance, and anxiety
CPT/HCPCS: 36415; 51702; 51798; 70450; 70551; 71045; 80048; 80053; 81001; 83735; 84439; 84443; 84484; 85025; 87086; 87426; 93005; 93306; 96365; 96366; 96367; 96372; 96375; 99285; G0378; J0360; J0696; J1200; J1630; J1650; J1885; J3480; J3490

== ENCOUNTER 2024-05-20 10:39 | Inpatient (IN) | payer MEDICARE, MEDICAID, SELFPAY ==
[2024-05-20] VITALS (15 sets, daily range): BP systolic 142–172; BP diastolic 59–97; PULSE 77–111; RESP 18–25; TEMP 36.5–36.8; O2SAT 90–94; BMI 16.6
--- NOTE | 2024-05-20 10:50 | XRR_ITS ---
PROCEDURE INFORMATION: Exam: XR Chest Exam date and time: 05/20/2024 11:03 AM Age: 89 years old Clinical indication: Cough; Additional info: Eval cough/weakness, ? pneumonia TECHNIQUE: Imaging protocol: Radiologic exam of the chest. Views: 1 view. COMPARISON: CR (CHEST, ) 04/07/2024 6:05 AM FINDINGS: Lungs: Wasb-ngufhsb-dysh-right perihilar airspace opacities. Pleural spaces: Probable small bilateral pleural effusions. No distinct pneumothorax. Heart/Mediastinum: Cardiomediastinal silhouette is midline and normal in size. Vasculature: Prominent calcific disease of the aorta. Bones/joints: Partially imaged surgical changes of the left shoulder. XR/XR chest 1V portable [id number] IMPRESSION: 1. Aquu-yxtpkkd-ofay-right perihilar airspace opacities. This can be seen with bronchiolitis, small airways disease, or infectious infiltrates. 2. Probable small bilateral pleural effusions.
--- NOTE | 2024-05-20 10:59 | ECG_ITS ---
[facility] Test Date: 2024-05-20 Pat Name: Adelaide Miller Department: Room: Gender: Female Consultant Internship: : 1935 Requested By: Gabo Chavez Order Number: [id number] Chang MD: Kwesi Oreilly M.D. Measurements Intervals [place] Rate: 97 P: 217 PA: 212 QRS: -9 QRSD: 122 T: 17 QT: 379 QTc: 483 Interpretive Statements SINUS RHYTHM WITH FIRST DEGREE AV BLOCK WITH OCCASIONAL VENTRICULAR PREMATURE COMPLEXES POSSIBLE RIGHT VENTRICULAR CONDUCTION DELAY [RSR (QR) IN V1/V2] Compared to ECG 04/07/2024 05:27:16 Ventricular premature complex(es) now present Incomplete right bundle-branch block no longer present T-wave abnormality no longer present Possible ischemia no longer present Electronically Signed On 05-20-2024 15:28:47 CDT by Kwesi Oreilly M.D. [email or web address]
--- NOTE | 2024-05-20 11:08 | ED_ITS ---
HPI - SOB/Dyspnea 2 General: Chief Complaint: Shortness of Breath/Dyspnea Stated Complaint: SOB Time Seen by Provider: 05/20/24 10:50 History of Present Illness: HPI Narrative: 89-year-old female presents by EMS from [facility]. The patient suffers from dementia and cannot provide a history. Chart review from their paperwork shows previous diagnoses of dementia, peripheral vascular disease, unsteady gait, urinary retention, history of falls, history of UTIs, essential hypertension, hypothyroidism, hypokalemia, dysphagia, history of myocardial infarction, among others. The longterm facility noticed increased weakness, increased respiratory rate and reported blood pressure volatility. The patient's family was contacted and they requested she be evaluated in the ER. She is reported to be a full code and this is documented in her longterm facility documents. EMS reports she had coughed up some greenish discolored sputum and longterm facility was worried she may be developing pneumonia. Review of Systems 2 General: Reports: ROS unobtainable due to mental status PFSH ED 2 PFSH: Medical History Fall Hypertension Displaced fracture of right femoral neck UTI (urinary tract infection) Urinary retention Closed hip fracture C1 cervical fracture Dementia Hypothyroidism Surgical History History of hemiarthroplasty of right hip Social History Smoking and tobacco/nicotine status: never used tobacco/nicotine Physical Exam 2 Narrative: EXAM NARRATIVE: This is an elderly, deconditioned, frail appearing female who is alert but does not communicate other than occasional single words. She has rales in the bases of her lungs posteriorly. She is slightly tachycardic. Her radial pulses 2+. Her feet are warm to the touch and seem to be well-perfused. She is underweight. Her respiratory rate is between 16 and 20. She does not appear to be in respiratory distress. She is wearing depends. Abdomen is soft and nontender. Const: COMMON NORMALS: alert HENMT: COMMON NORMALS: normocephalic, atraumatic and external ears normal H EAD & SCALP: normocephalic and atraumatic EXTERNAL EAR: Yes external ears normal MOUTH: no muffled voice Eye: COMMON NORMALS: conjunctivae normal and no scleral icterus C ONJUNCTIVA: Yes conjunctivae normal Neck/C-Spine: GENERAL: Yes normal visual inspection and Yes trachea midline Cardio: COMMON NORMALS: regular rhythm RHYTHM: regular rhythm GI: COMMON NORMALS: Soft to palpation and non-tender PALPATION: Yes Soft to palpation and No Guarding due to palpation present (GI) Neuro: COMMON NORMALS: moves all extremities and no focal motor deficits S ENSORIUM/ORIENTATION: Yes alert Skin: COMMON NORMALS: no rashes or lesions noted, turgor normal and no jaundice GENERAL SKIN EXAM: no rashes or lesions noted and turgor normal Course 2 ED course: Patient's chest x-ray is abnormal. There was a delay in obtaining blood due to difficult IV access and blowing of the veins according to the nurse. Ultimately the patient's hemoglobin returned less than 7. This is new for her. We were able to grossly evaluate her stool which was not black. A Hemoccult will be sent. Patient will be given 1 unit of blood as well as 500 cc of IV fluid to support her hemodynamic status while they are preparing for blood transfusion. Her lactic acid is elevated. Her white blood cell count was normal and she is afebrile. It is possible that there is an underlying infection, that would be difficult to exclude. However, it is equally likely that this is congestive heart failure due to anemia. The urine analysis is in the lab. I have discussed with Dr. Saunders for admission. UPDATE: Hemoccult is positive. UPDATE 2: Discussed with the admitting physician. She has requested CT of the chest abdomen pelvis for further rule out since the patient cannot communicate well. This was performed without contrast due to kidney function. The chest x-ray shows bilateral pleural effusions as well as multifocal infiltrates consistent with pneumonia. She was given cefepime because of her group home status. We have not covered for MRSA at this point, I will leave it to the discretion of the admitting physician. The patient's lactic acidosis would normally be treated with 30 cc/kg of fluid boluses. However, I suspect that her significant anemia with Hemoccult positive stool is what is causing some of her circulatory dysfunction. Therefore we are going to transfuse red blood cells in addition to providing smaller IV fluid boluses. We will trend lactic acid. The urine analysis was abnormal but could also be some colonization. Patient was treated with cefepime which should cover her urine as well. The COVID test was negative. Daughter, Ana María UTD with plan. Ana María does not want her to be full code--after discussing that full code meant CPR and possible mechanical ventilator--she doesn't think that is c/w her mothers wishes now that her quality of life is poor (dementia, mobility issues, etc) Consultations: Consultation #1: Dr. Saunders Vital Signs: Vital signs: Vital Signs Temperature 98.2 F 05/20/24 10:44 Pulse Rate 107 H 05/20/24 12:35 Respiratory Rate 22 H 05/20/24 12:35 Blood Pressure 153/73 05/20/24 12:35 Pulse Oximetry 92 05/20/24 12:35 Oxygen Delivery Me thod Room Air 05/20/24 12:35 Oxygen Flow Rate 2 05/20/24 11:50 MDM - SOB/Dyspnea Medical Decision Making Afebrile 89-year-old female with abnormal breath sounds, increased weakness, and report of SpO2 ranging between 86 and 90% on room air. She is unable to provide history as noted above. We will pursue workup for various causes of her symptoms including pneumonia, heart failure, renal failure, UTI, etc. Lab Data 05/20/24 11:55 05/20/24 11:55 Labs/Radiology: Radiology Impressions Chest X-Ray 05/20/24 10:50 IMPRESSION: 1. Ruqb-ynylmyf-sapv-right perihilar airspace opacities. This can be seen with bronchiolitis, small airways disease, or infectious infiltrates. 2. Probable small bilateral pleural effusions. Chest/Abdomen/Pelvis CT 05/20/24 12:57 IMPRESSION: 1. Scattered consolidative opacities throughout the bilateral lungs, most consistent with multifocal pneumonia. 2. Large bilateral pleural effusions. 3. Subtotal collapse of the bilateral lower lobes. 4. Severe calcific disease of the thoracic aorta. IMPRESSION: 1. Large rectal stool burden. This is concerning for fecal impaction. 2. Mild/questionable rectal wall thickening with mild surrounding stranding may be incidental or can be seen with mild stercoral colitis. 3. Severe calcific atherosclerotic disease of the abdominal aorta and its major branches. Laboratory Results WBC 10.20 10^3/uL (3.29-11.43) 05/20/24 11:55 RBC 2.36 10^6/uL (3.85-5.65) L 05/20/24 11:55 Hgb 6.60 g/dL (11.27-16.99) L 05/20/24 11:55 Hct 22.0 % (36-47) L 05/20/24 11:55 MCV 93.2 fl (85-98) 05/20/24 11:55 MCH 28.0 pg (27-33) 05/20/24 11:55 MCHC 30.0 g/dL (30-55) 05/20/24 11:55 RDW 15.9 % (12.1-15.1) H 05/20/24 11:55 Plt Count 508 10^3/cmm (157-399) H 05/20/24 11:55 MPV 8.9 fL (7.4-10.4) 05/20/24 11:55 Neut % (Auto) 89.2 % 05/20/24 11:55 Lymph % (Auto) 4.0 % 05/20/24 11:55 [place] % (Auto) 5.9 % 05/20/24 11:55 Eos % (Auto) 0.0 % 05/20/24 11:55 Baso % (Auto) 0.1 % 05/20/24 11:55 Neut # (Auto) 9.10 10^3/uL (1.8-7.7) H 05/20/24 11:55 Lymph # (Auto) 0.4 10^3/uL (0.8-4.8) L 05/20/24 11:55 [place] # (Auto) 0.6 10^3/uL (0.2-0.9) 05/20/24 11:55 Eos # (Auto) 0.0 10^3/uL (0.0-0.8) 05/20/24 11:55 Baso # (Auto) 0.0 10^3/uL (0.0-0.1) 05/20/24 11:55 Nucleated RBC % (auto) 0.2 % 05/20/24 11:55 Nucleated RBCs # 0.0 /100WBC 05/20/24 11:55 Sodium 128 mmol/L (136-145) L 05/20/24 11:55 Potassium 4.7 mmol/L (3.5-5.1) 05/20/24 11:55 Chloride 91 mmol/L (98-107) L 05/20/24 11:55 Carbon Dioxide 21 mmol/L (22-29) L 05/20/24 11:55 Anion Gap 20.7 (5-19) H 05/20/24 11:55 BUN 52 mg/dL (8-23) H 05/20/24 11:55 Creatinine 2.6 mg/dL (0.5-0.9) H 05/20/24 11:55 GFR Calculation Not Reportable 05/20/24 11:55 Glucose 150 mg/dL (65-115) H 05/20/24 11:55 Calculated Osmolality 283 mOsm/kg (285-295) L 05/20/24 11:55 Lactic Acid 4.1 mmol/L (0.5-2.2) H* 05/20/24 11:55 Calcium 8.4 mg/dL (8.5-10.5) L 05/20/24 11:55 Total Bilirubin 0.9 mg/dL (0.15-1.2) 05/20/24 11:55 AST 39 U/L (0-32) H 05/20/24 11:55 ALT 24 U/L (0-33) 05/20/24 11:55 Alkaline Phosphatase 42 U/L (35-105) 05/20/24 11:55 NT-Pro-B Natriuret Pep > 74795 pg/mL (0-450) H 05/20/24 11:55 Total Protein 5.9 g/dL (6.6-8.7) L 05/20/24 11:55 Albumin 3.8 g/dL (3.5-5.2) 05/20/24 11:55 Globulin 2.1 g/dL (1.3-4.6) 05/20/24 11:55 Procalcitonin 0.21 ng/mL (0-0.5) 05/20/24 11:55 Urine Color Yellow (Yellow) 05/20/24 12:28 Urine Appearance Clear (CLEAR) 05/20/24 12:28 Urine pH 5 (5-7) 05/20/24 12:28 Ur Specific [place] 1.020 (1.005-1.030) 05/20/24 12:28 Urine Protein 2+ (Negative) H 05/20/24 12:28 Urine Glucose (UA) Norm (Normal) 05/20/24 12:28 Urine Ketones Negative (Negative) 05/20/24 12:28 Urine Blood 2+ (Negative) H 05/20/24 12:28 Urine Nitrate Negative (Negative) 05/20/24 12:28 Urine Bilirubin Neg (Negative) 05/20/24 12:28 Urine Urobilinogen Norm mg/dL (Negative) 05/20/24 12:28 Ur Leukocyte Esterase 2+ (Negative) H 05/20/24 12:28 Urine RBC 0-4 /hpf (0-2) H 05/20/24 12:28 Urine WBC 15-25 /hpf (0-5) H 05/20/24 12:28 Ur Squamous Epith Cells 0-4 /hpf (0-5) H 05/20/24 12:28 Amorphous Sediment Not Reportable 05/20/24 12:28 Urine Bacteria 1+ /hpf (NONE) H 05/20/24 12:28 SARS-CoV-2 Ag (Rapid) negative (Negative) 05/20/24 11:52 Crossmatch See Detail 05/20/24 13:10 All radiology interpretation(s) finalized by discharge ED provider radiology interpretation(s): EP interpretation. Bilateral perihilar infiltrates somewhat obscuring the cardiac borders, probable pleural effusions bilaterally, nonspecific increased radiodensities projecting in the left upper lobe EKG Data EKG 1: Interpretation: Sinus rhythm, rate 97, LVH suggested, QRS 122 ms, borderline first-degree AV block, PVC x 1, nonspecific ST and T wave changes. Some ST depression laterally. Discharge Plan Discharge Patient Disposition: Admitted As Inpatient Clinical Impression: Multifocal pneumonia, Acute hypoxemic respiratory failure, Abnormal urinalysis, Anemia, Fecal occult blood test positive, Hyponatremia, AGUSTÍN (acute kidney injury), Acidosis, lactic Condition: Stable Coding Level of Care Code ED [employer] Supervisor for Faustog Dwaine
[2024-05-20 12:04] LABS: Basophils % 0.1 %; Lymphocytes # 0.4 10^3/uL (0.8-4.8); Mean Corpuscular Volume 93.2 fl (85-98); Mean Platelet Volume 8.9 fL (7.4-10.4); Monocytes # 0.6 10^3/uL (0.2-0.9); Monocytes % 5.9 %; Neutrophils % 89.2 %; Nucleated Red Blood Cells % 0.2 %; Platelet Count 508 10^3/cmm (157-399); Red Blood Count 2.36 10^6/uL (3.85-5.65); Red Cell Distribution Width 15.9 % (12.1-15.1)
[2024-05-20 12:22] LABS: SARS Covid-2 Antigen negative (Negative)
[2024-05-20 12:27] LABS: Alanine Aminotransferase 24 U/L (0-33); Albumin Level 3.8 g/dL (3.5-5.2); Alkaline Phosphatase 42 U/L (35-105); Anion Gap 20.7 (5-19); Aspartate Amino Transferase 39 U/L (0-32); Blood Urea Nitrogen 52 mg/dL (8-23); Calcium 8.4 mg/dL (8.5-10.5); Carbon Dioxide 21 mmol/L (22-29); Chloride 91 mmol/L (98-107); Globulin 2.1 g/dL (1.3-4.6); Glucose 150 mg/dL (65-115); Osmolality Calculated 283 mOsm/kg (285-295); Potassium 4.7 mmol/L (3.5-5.1); Sodium 128 mmol/L (136-145); Total Bilirubin 0.9 mg/dL (0.15-1.2); Total Protein 5.9 g/dL (6.6-8.7)
[2024-05-20] MEDS: cefepime 2,000 MG in sodium chloride 0.9% (plus) 50 ML 100 MG IV (12:34)
[2024-05-20 12:53] LABS: Creatinine Clr Calc Pharmacy 13.9203
[2024-05-20 12:55] LABS: Lactic Sepsis W/Reflex 4.1 mmol/L (0.5-2.2)
--- NOTE | 2024-05-20 12:57 | CTR_ITS ---
PROCEDURE INFORMATION: Exam: CT Chest Without Contrast; Diagnostic Exam date and time: 05/20/2024 1:26 PM Age: 89 years old Clinical indication: Other: Dementia patient w/ weakness, abnl cxr, tachycardia TECHNIQUE: Imaging protocol: Diagnostic computed tomography of the chest without contrast. Radiation optimization: All CT scans at this facility use at least one of these dose optimization techniques: automated exposure control; mA and/or kV adjustment per patient size (includes targeted exams where dose is matched to clinical indication); or iterative reconstruction. COMPARISON: CT chest abdpel w/*[id number] 04/01/2023 3:48 AM RADIATION DOSE METRICS: Total DLP (mGy-cm): 490.53 FINDINGS: Lungs: Subtotal collapse of the bilateral lower lobes. Scattered consolidative opacities throughout the bilateral lungs, most consistent with multifocal pneumonia. Pleural spaces: Large bilateral pleural effusions. No pneumothorax. Heart: Heart is normal in size. No pericardial effusion. Coronary arteries: Coronary artery calcifications. Lymph nodes: No distinct pathologically enlarged lymphadenopathy. Vasculature: Severe calcific disease of the thoracic aorta. Bones/joints: Stable compression deformities of the vertebral bodies of T12 and L1. Soft tissues: Visualized superficial soft tissues are within normal limits. PROCEDURE INFORMATION: Exam: CT Abdomen And Pelvis Without Contrast Exam date and time: 05/20/2024 1:26 PM Age: 89 years old Clinical indication: Other: Dementia patient w/ weakness, abnl cxr, tachycardia TECHNIQUE: Imaging protocol: Computed tomography of the abdomen and pelvis without contrast. Radiation optimization: All CT scans at this facility use at least one of these dose optimization techniques: automated exposure control; mA and/or kV adjustment per patient size (includes targeted exams where dose is matched to clinical indication); or iterative reconstruction. COMPARISON: CT chest abdpel w/*[id number] 04/01/2023 3:48 AM RADIATION DOSE METRICS: Total DLP (mGy-cm): 490.53 FINDINGS: Liver: No suspicious hepatic masses. Gallbladder and biliary ducts: Gallbladder is poorly visualized without large obvious abnormality. Pancreas: Pancreas is poorly visualized without large obvious abnormality. Spleen: The spleen is unremarkable. Adrenal glands: Adrenal glands are poorly visualized without large obvious abnormality. Kidneys and ureters: Kidneys are poorly visualized without large obvious abnormality. Stomach and bowel: Large rectal stool burden. Mild/questionable rectal wall thickening with mild surrounding stranding. Appendix: No evidence of acute appendicitis. Intraperitoneal space: No significant free fluid in the abdomen or pelvis. Vasculature: Severe calcific atherosclerotic disease of the abdominal aorta and its major branches. Redemonstrated vascular stent at the proximal right renal artery. No abdominal aortic aneurysm. Lymph nodes: No distinct pathologically enlarged lymphadenopathy. Urinary bladder: Urinary bladder is within normal limits. Reproductive: Uterus is poorly visualized and may be atrophic or absent. Bones/joints: Moderate lumbar dextroscoliosis. Moderate multilevel spondylosis. Status post right hip arthroplasty. Stable compression deformities of the vertebral bodies of T12 and L1. Soft tissues: Visualized superficial soft tissues are within normal limits. CT/[place] [id number] IMPRESSION: 1. Scattered consolidative opacities throughout the bilateral lungs, most consistent with multifocal pneumonia. 2. Large bilateral pleural effusions. 3. Subtotal collapse of the bilateral lower lobes. 4. Severe calcific disease of the thoracic aorta. IMPRESSION: 1. Large rectal stool burden. This is concerning for fecal impaction. 2. Mild/questionable rectal wall thickening with mild surrounding stranding may be incidental or can be seen with mild stercoral colitis. 3. Severe calcific atherosclerotic disease of the abdominal aorta and its major branches.
[2024-05-20 13:03] LABS: Add Urine Culture? Yes; Add Urine Microscopic? YES; Bacteria Urine 1+ /hpf; Bilirubin Urine Neg (Negative); Blood Urine 2+ (Negative); Glucose Urine UA Norm (Normal); Ketones Urine Negative (Negative); Leukocyte Esterase Urine 2+ (Negative); Nitrate Urine Negative (Negative); Protein Urine 2+ (Negative); RBC Urine 0-4 /hpf (0-2); Squamous Epithelial Cell Urine 0-4 /hpf (0-5); Urine Appearance Clear (CLEAR); Urine Color Yellow (Yellow); Urobilinogen Urine Norm (Negative); WBC Urine 15-25 /hpf (0-5); pH Urine 5 (5-7)
[2024-05-20] MEDS: sodium chloride 0.9% 500 ML 999 ML IV (13:09)
[2024-05-20 13:11] LABS: Procalcitonin 0.21 ng/mL (0-0.5)
[2024-05-20 13:45] LABS: Reflex Lactate Order REFLEX LACTIC ORDERD
[2024-05-20 14:14] LABS: NT Pro B Type Natriuretic Pept > 70000 pg/mL (0-450)
[2024-05-20 14:22] LABS: Lactic Acid level (Lactate) 3.5 mmol/L (0.5-2.2)
--- NOTE | 2024-05-20 15:10 | ECG_ITS ---
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 Measurements Intervals [place] Rate: 99 P: 110 [place]: 216 QRS: 73 QRSD: 91 T: 62 QT: 374 QTc: 480 Interpretive Statements SINUS RHYTHM WITH FIRST DEGREE AV BLOCK WITH FREQUENT VENTRICULAR PREMATURE COMPLEXES MARKED JUNCTIONAL ST DEPRESSION [JUNCTIONAL DEPRESSION WITH WEAK UPSLOPE] Compared to ECG 05/20/2024 10:59:44 ST (T wave) deviation now present Electronically Signed On 05-20-2024 15:29:13 CDT by Kwesi Oreilly M.D. [id number]
--- NOTE | 2024-05-20 15:11 | PM.HP ---
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 Currently patient is alert oriented x 0, does not follow commands, in mild respiratory distress, nasal flaring intercostal retractions, tachypnea on 4 L, blood pressure 147/77, pulse is 110, sinus rhythm, respiratory 22 temperature 98.3, patient's daughter is at bedside. According to patient's daughter, patient has a history of dementia, at baseline she cannot ambulate, she can at times feed herself, at times she can recognize family members at times she can carry out conversations. Recently she has had a slow decline, more rapidly over the last few days, she has had a few falls, less verbal. I had a detailed discussion with patient's daughter, patient appears to have multiorgan failure, including acute renal failure, with metabolic acidosis, with evidence of sepsis, secondary to bilateral pneumonia, subtotal collapse of bilateral lower lobes, with evidence of GI bleed Hemoccult positive stool requiring transfusion, with acute respiratory failure secondary to pneumonia, and fluid overload BNP over 70,000 evidence of bilateral pleural effusions. Currently patient status is critical, prognosis is poor. Hospitalist team was called for medical management. At a detailed discussion with patient's daughter about overall goals of care, patient daughter who is patient's next of kin, healthcare power of civil litigation attorney tells me that Adelaide would not want to have aggressive interventions. We had a discussion about CPR, she tells me was that I would not want that, she is a DNR. We discussed intubation, mechanical ventilation she tells me was that I would not want that she is a DNI. We also discussed her management, daughter is okay with antibiotics, blood transfusions, further noninvasive testing. We had a discussion about her sepsis, and her worsening respiratory failure, if her sepsis worsens if she starts developing septic shock, would she want us to admit her to the ICU, for pressors, central access. After discussing the risk and benefits, she voiced understanding, all questions answered, declined for now. In terms of worsening respiratory failure, she is okay with nasal cannula, okay with heated high flow, but given her current cognition I do not believe she would tolerate BiPAP. But certainly we could try, overall I was honest with patient's daughter I think her overall prognosis is poor, condition is critical. I can continue to try medical intervention but if her condition were to deteriorate she developed worsening respiratory failure, worsening urine output, worsening shock what we do at that point. Her daughter and then at that point would want her mother just to be comfortable, for us to ease her pain and ease her suffering and to proceed with comfort care. We had a detailed discussion about the risk and benefits of comfort care, she voiced understanding, all question answered, agreed to proceed with comfort care if her condition were to deteriorate. Above all she does not want Adelaide to suffer, she is okay with morphine, Ativan, and if she starts suffering she is okay with proceeding with full comfort care. Would like to be contacted if her condition were to deteriorate. Review of Systems General: Reports: ROS unobtainable due to mental status Medications/Allergies Home Medications Medication Instructions Recorded Confirmed Last Taken Type bisacodyl 10 mg rectal suppository 10 mg NJ DAILY PRN Constipation 04/01/23 04/07/24 Unknown History diclofenac sodium 1 % topical gel See Rx Instructions .Route .COMPLEX 04/01/23 04/07/24 Unknown History magnesium hydroxide 400 mg/5 mL 30 ml PO DAILY PRN Constipation 04/01/23 04/07/24 Unknown History oral suspension (Milk of Magnesia) sodium phosphates 19 gram-7 118 ml NJ DAILY PRN Constipation 04/01/23 04/07/24 Unknown History gram/118 mL enema (Enema Disposable) acetaminophen 500 mg tablet 500 mg PO Q4H PRN Pain #20 tabs 04/04/23 04/07/24 Unknown Rx [place] Opthalmic 1 drp eye-both DAILY PRN Irritation 04/07/24 04/07/24 Unknown History ondansetron HCl 4 mg tablet 4 mg PO Q6H PRN Nausea And Vomiting 04/07/24 04/07/24 Unknown History levothyroxine 75 mcg tablet 75 mcg PO DAILY 60 days #60 tabs 04/09/24 Unknown Rx Allergies Allergy/AdvReac Type Severity Reaction Status Date / Time amphetamine Allergy Unknown Verified 11/03/23 09:39 gabapentin Allergy Unknown Verified 11/03/23 09:39 levofloxacin Allergy Unknown Verified 11/03/23 09:39 nitrofurantoin Allergy Unknown Verified 11/03/23 09:39 sulfamethoxazole Allergy Unknown Verified 11/03/23 09:39 [From Bactrim] trimethoprim [From Bactrim] Allergy Unknown Verified 11/03/23 09:39 PFSH Acute PFSH: Medical History Hearing impairment Fall Hypertension Displaced fracture of right femoral neck UTI (urinary tract infection) Urinary retention Closed hip fracture C1 cervical fracture Dementia Hypothyroidism Surgical History History of hemiarthroplasty of right hip Social History Smoking and tobacco/nicotine status: never used tobacco/nicotine Vitals/I&O/Wt Last Vital Signs Temp 98.3 F 05/20/24 14:59 Pulse 105 H 05/20/24 14:59 Resp 22 H 05/20/24 14:59 BP 147/77 05/20/24 14:59 Pulse Ox 92 05/20/24 14:59 O2 Del Method Nasal Cannula 05/20/24 14:59 O2 Flow Rate 4 05/20/24 14:59 05/20/24 05/20/24 05/20/24 06:59 14:59 22:59 Intake Total 50 / 50 Balance 50 / 50 Weight last 48 hrs Weight 54.431 kg Physical Exam Const: EXAM LIMITATIONS: altered mental status GENERAL APPEARANCE: in distress, lethargic, ill appearing and frail appearing ORIENTATION/CONSCIOUSNESS: Yes awake and Yes confused; not oriented to person, not oriented to place and not oriented to time HENMT: COMMON NORMALS: normocephalic HEAD & SCALP: normocephalic Eye: COMMON NORMALS: Equal, round and reactive pupils present Neck/C-Spine: COMMON NORMALS: no JVD Lymph: LYMPHATIC: no lymphadenopathy noted Resp: EFFORT & INSPECTION: Yes tachypneic OTHER: Respiratory rate 22, intercostal retractions, suprasternal retractions, nasal flaring Cardio: COMMON NORMALS: no JVD, S1 normal heart sound present and S2 normal heart sound present RATE: tachycardic RHYTHM: regular rhythm HEART SOUNDS: S1 normal heart sound present and S2 normal heart sound present GI: COMMON NORMALS: Normal to inspection, nondistended, normoactive bowel sounds present and Soft to palpation Extremity: COMMON NORMALS: no pedal edema Neuro: OTHER: Does not follow neurologic testing Sepsis: Is patient septic: Yes Focused sepsis exam performed: Yes Focused sepsis exam: DP PT pulses barely palpable, mottling bilateral lower extremities, cap refill greater than 2 seconds Date exam was performed: 05/20/24 Time exam was performed: 15:21 Data 05/20/24 11:55 05/20/24 11:55 Micro: Microbiology 05/20/24 11:55 Blood Culture - Preliminary Blood SPECIMEN COLLECTED 05/20/24 11:30 Blood Culture - Preliminary Blood SPECIMEN COLLECTED A&P Assessment and plan (1) Acute hypoxemic respiratory failure: (2) Multifocal pneumonia: (3) Fecal occult blood test positive: (4) Anemia: (5) Acidosis, lactic: (6) AGUSTÍN (acute kidney injury): (7) Hyponatremia: (8) Acute GI bleeding: (9) CHF exacerbation: (10) Sepsis: (11) Bilateral pleural effusion: (12) Acute encephalopathy: Plan Acute encephalopathy -With underlying Alzheimer's dementia -Secondary sepsis, GI bleed, pneumonia, UTI -Neurochecks -Keep n.p.o. Sepsis -Sepsis given lactic acidosis, metabolic acidosis, acute renal failure, source infection multifocal pneumonia Acute hypoxic respiratory failure -Multifactorial -Acute CHF exacerbation BNP over 70,000, -Bilateral pleural effusions -Bilateral multifocal pneumonia Plan -DO NOT INTUBATE -If patient's clinical condition deteriorates, patient's family does not want Adelaide to suffer, agrees to proceed with comfort care -Monitor respiratory status closely -Will hold off on Lasix given sepsis, AGUSTÍN -Vancomycin -Meropenem -DuoNeb as needed -Can consider heated high flow, high flow nasal cannula -I do not believe she will tolerate BiPAP and certainly can try Metabolic acidosis, lactic acidosis ? Secondary to above Acute GI bleed ? Hemoglobin 6.6, Hemoccult positive stool, patient is on Plavix ? Plan ? Protonix 40 IV twice daily ? Receiving 1 unit PRBC ? Monitor for fluid overload ? Transfuse if hemoglobin less than 7 ? Monitor for worsening GI bleed ? Will check INR Acute CHF exacerbation, bilateral pleural effusions ? Receiving fluid, and blood in the ER -Creatinine is 2.6 ? Will consider Lasix therapy however patient is in sepsis from pneumonia as above ? Will monitor consider Lasix therapy based on clinical progress Hyponatremia, monitor Acute respiratory distress Acute deconditioned state, given patient's Alzheimer's dementia BMI 18, evidence of protein calorie malnutrition, physical deconditioning Secondary to Alzheimer's dementia CODE STATUS DNR/DNI, overall prognosis poor, status critical, if patient's condition deteriorates, such as septic shock, worsening respiratory failure, worsening kidney function, family wants to proceed with comfort care, above all they do not want Adelaide to suffer, has morphine, Ativan as needed for agitation, and for pain Protonix for GI prophylaxis ? Lovenox for DVT prophylaxis currently contraindicated given GI bleed, SCDs Attestations Medical Necessity Statement*: Patient requires hospitalization, for acute hypoxic respiratory failure, acute respiratory distress syndrome, multifocal pneumonia, sepsis, acute GI bleed, acute anemia, acute CHF exacerbation, acute encephalopathy, hyponatremia, metabolic acidosis, lactic acidosis Coding Level of Care Code Critical Care >/= 30 minutes Critical care time (in minutes): 45 The high probability of a clinically significant, sudden or life threatening deterioration, as referenced in this documentation, required my full and direct attention, intervention and personal management. The critical care time shown is in addition to time spent performing any reported separately billable procedures and includes the following: [x] Data and vital sign review and interpretation [x] Patient assessment, examination and intervention [x] Medication orders and management [x] Patient/Family updates as able [x] Care Coordination and Documentation. Diagnoses Acute hypoxemic respiratory failure J96.01 Multifocal pneumonia J18.9 Fecal occult blood test positive R19.5 Anemia D64.9 Acidosis, lactic E87.20 AGUSTÍN (acute kidney injury) N17.9 Hyponatremia E87.1 Acute GI bleeding K92.2 CHF exacerbation I50.9 Sepsis A41.9 Bilateral pleural effusion J90 Acute encephalopathy G93.40
[2024-05-20 15:39] LABS: ABG PH Result 7.51 (7.35-7.45); Base Excess ABG 0.4 mmol/L (-2.0-2.0); Blood Gas Allen Test Pos; Blood Gas Operator Identificat AMH; Blood Gas Sample Site Radial, left; Blood Gas Sample Type Arterial; HCO3 ABG 23.3 mmol/L (22-26); Oxygen Device NC; PO2 ABG 58.3 mmHg (80.0-100.0); PO2 FiO2 Ratio Arterial Blood 161
--- NOTE | 2024-05-20 16:14 | PC.NURSE ---
per verbal order from dr. garcia, order and admin Morphine 2mg IVP once.
[2024-05-20] MEDS: sodium chloride 0.9% 500 ML IV (16:15)
[2024-05-20] MEDS: morphine 4 mg/mL SDV 1 mL 2 MG IVP ×2 (16:19→20:54)
[2024-05-20 16:23] LABS: Troponin(5th) Baseline 484 ng/L (0-10)
[2024-05-20 17:58] LABS: Thyroid Stimulating Hormone 29.17 uIU/mL (0.27-4.20)
[2024-05-20] MEDS: pantoprazole 40 mg SDV IVP (18:57)
[2024-05-20] MEDS: vancomycin 1,000 MG in sodium chloride 0.9% 250 ML 250 MG IV (18:58)
[2024-05-20 19:02] LABS: Troponin 5 2HR Delta -18.9 ABS# (0-10)
[2024-05-20 19:03] LABS: Troponin 5 2HR 465.1 ng/L (0-10)
--- NOTE | 2024-05-20 19:20 | PC.NURSE ---
Pt s toes bilaterally are cold and purple dtr came in a couple of minutes ago and states that has been that way for awhile.
[2024-05-20] MEDS: meropenem 500 mg SDV IVP (20:51)
[2024-05-20] MEDS: LORazepam 2 mg/mL INJ 1 mL 0.5 MG IVP (20:54)
--- NOTE | 2024-05-20 21:10 | ECG_ITS ---
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 Measurements Intervals [place] Rate: 85 P: 0 NJ: 0 QRS: 68 QRSD: 88 T: 46 QT: 380 QTc: 453 Interpretive Statements Sinus rhythm with PVCs Borderline first-degree AV block MINIMAL ST DEPRESSION [0.025+ mV ST DEPRESSION] ABNORMAL RHYTHM ECG Compared to ECG 05/20/2024 15:16:37 Ventricular premature complex(es) now present ST (T wave) deviation still present Electronically Signed On 05-21-2024 9:24:51 CDT by Kwesi Oreilly M.D. [id number]
[2024-05-20 21:52] LABS: Estmated Average Glucose 71; Hemoglobin A1C 4.1 % (4.0-6.0)
[2024-05-20 23:00] LABS: Troponin 5 6HR 473.1 ng/L (0-10); Troponin 5 6HR Delta -10.9 ng/L (0-12)
[2024-05-21] VITALS (9 sets, daily range): BP systolic 150–167; BP diastolic 76–87; PULSE 74–85; RESP 12–20; TEMP 36.4–36.8; O2SAT 90–95
[2024-05-21 04:48] LABS: Basophils % 0.2 %; Eosinophils # 0.1 10^3/uL (0.0-0.8); Hematocrit 23.8 % (36-47); Lymphocytes # 0.7 10^3/uL (0.8-4.8); Lymphocytes % 6.6 %; Mean Corpuscular HGB Conc 31.1 g/dL (30-55); Mean Corpuscular Hemoglobin 27.9 pg (27-33); Mean Corpuscular Volume 89.8 fl (85-98); Mean Platelet Volume 8.7 fL (7.4-10.4); Monocytes # 0.7 10^3/uL (0.2-0.9); Monocytes % 6.5 %; Neutrophils # 9.26 10^3/uL (1.8-7.7); Neutrophils % 84.4 %; Nucleated Red Blood Cells % 0.4 %; Platelet Count 366 10^3/cmm (157-399); Red Blood Count 2.65 10^6/uL (3.85-5.65); Red Cell Distribution Width 16.8 % (12.1-15.1); White Blood Count 10.96 10^3/uL (3.29-11.43)
[2024-05-21 05:08] LABS: Anion Gap 16.3 (5-19); Blood Urea Nitrogen 52 mg/dL (8-23); Calcium 7.9 mg/dL (8.5-10.5); Carbon Dioxide 25 mmol/L (22-29); Chloride 95 mmol/L (98-107); Creatinine Clr Calc Pharmacy 13.4695; Glucose 97 mg/dL (65-115); Osmolality Calculated 288 mOsm/kg (285-295); Potassium 4.3 mmol/L (3.5-5.1); Sodium 132 mmol/L (136-145)
[2024-05-21] MEDS: pantoprazole 40 mg SDV IVP ×2 (05:11→17:14)
[2024-05-21] MEDS: levothyroxine 100 mcg SDV 50 MCG IVP (09:10)
[2024-05-21] MEDS: meropenem 500 mg SDV IVP ×2 (09:10→20:43)
[2024-05-21] MEDS: morphine 4 mg/mL SDV 1 mL 2 MG IVP (12:07)
[2024-05-21] MEDS: LORazepam 2 mg/mL INJ 1 mL 0.5 MG IVP ×2 (14:31→21:30)
--- NOTE | 2024-05-21 15:41 | P.PN_ITS ---
Subjective 2 Subjective: - Patient was seen this morning, family members at bedside, she is alert oriented x 0, does not follow commands, patient's daughter is at bedside, we discussed her multiorgan failure, acute renal failure, NSTEMI, multifocal pneumonia, acute respiratory failure GI bleed, discussion of medical intervention versus hospice/comfort care, overall my concern is is that given her NSTEMI, no GI bleed, we have really no good option for anticoagulant or antiplatelet therapy, in the long-term, with acute respiratory failure BNP over 70,000 with her sepsis there is really no good intervention,, as Lasix or diuretics can worsen her sepsis, I think her overall prognosis is poor, she has had no significant urine output, patient's daughter is going to wait until more family members arrive before making a decision about goals of care she remains a DNR/DNI Vitals/I&O/Wt Last Vital Signs Temp 98.1 F 05/21/24 15:29 Pulse 84 05/21/24 15:29 Resp 12 05/21/24 15:29 BP 159/87 05/21/24 15:29 Pulse Ox 90 05/21/24 15:29 O2 Del Method Nasal Cannula 05/21/24 15:29 O2 Flow Rate 3 05/21/24 08:00 Weight last 48 hrs Weight 55.157 kg Weight 49.668 kg Weight 54.431 kg Physical Exam 2 Const: COMMON NORMALS: no acute distress ORIENTATION/CONSCIOUSNESS: Yes awake and Yes oriented to person Neck/C-Spine: COMMON NORMALS: no JVD Resp: COMMON NORMALS: normal respiratory effort, No retractions, No use of accessory muscles and clear to auscultation bilaterally AUSCULTATION: clear to auscultation bilaterally Cardio: COMMON NORMALS: no JVD, regular rate, regular rhythm, S1 normal heart sound present and S2 normal heart sound present RATE: regular rate RHYTHM: regular rhythm HEART SOUNDS: S1 normal heart sound present and S2 normal heart sound present GI: COMMON NORMALS: Normal to inspection, nondistended, normoactive bowel sounds present and non-tender Extremity: COMMON NORMALS: no pedal edema Neuro: SENSORIUM/ORIENTATION: Yes oriented to person Data 05/21/24 04:34 05/21/24 04:34 Micro: Microbiology 05/20/24 11:55 Blood Culture - Preliminary Blood NEGATIVE TO DATE 05/20/24 11:30 Blood Culture - Preliminary Blood NEGATIVE TO DATE 05/20/24 12:28 Urine Culture - Preliminary Urine,Clean Catch 05/20/24 18:15 Occult Blood (FIT) - Final Stool - Stool Aspirate A&P Assessment and plan (1) Acute hypoxemic respiratory failure: (2) Multifocal pneumonia: (3) Fecal occult blood test positive: (4) Anemia: (5) Acidosis, lactic: (6) AGUSTÍN (acute kidney injury): (7) Hyponatremia: (8) Acute GI bleeding: (9) CHF exacerbation: (10) Sepsis: (11) Bilateral pleural effusion: (12) Acute encephalopathy: (13) NSTEMI (non-ST elevated myocardial infarction): Plan Acute encephalopathy -With underlying Alzheimer's dementia -Secondary sepsis, GI bleed, pneumonia, UTI -Neurochecks -Keep n.p.o. Sepsis -Sepsis given lactic acidosis, metabolic acidosis, acute renal failure, source infection multifocal pneumonia Acute hypoxic respiratory failure -Multifactorial -Acute CHF exacerbation BNP over 70,000, -Bilateral pleural effusions -Bilateral multifocal pneumonia Plan -DO NOT INTUBATE -If patient's clinical condition deteriorates, patient's family does not want Adelaide to suffer, agrees to proceed with comfort care -Monitor respiratory status closely -Will hold off on Lasix given sepsis, AGUSTÍN -Vancomycin -Meropenem -DuoNeb as needed -Can consider heated high flow, high flow nasal cannula -I do not believe she will tolerate BiPAP and certainly can try Metabolic acidosis, lactic acidosis ? Secondary to above Acute GI bleed ? Hemoglobin 6.6, Hemoccult positive stool, patient is on Plavix ? Plan ? Protonix 40 IV twice daily ? Receiving 1 unit PRBC ? Monitor for fluid overload ? Transfuse if hemoglobin less than 7 ? Monitor for worsening GI bleed ? Will check INR Acute CHF exacerbation, bilateral pleural effusions ? Receiving fluid, and blood in the ER -Creatinine is 2.6 ? Will consider Lasix therapy however patient is in sepsis from pneumonia as above ? Will monitor consider Lasix therapy based on clinical progress Hyponatremia, monitor Acute respiratory distress Acute deconditioned state, given patient's Alzheimer's dementia BMI 18, evidence of protein calorie malnutrition, physical deconditioning Secondary to Alzheimer's dementia NSTEMI, concern for underlying cardiac etiology, cannot anticoagulate or placed on antiplatelet therapy given GI bleed, CODE STATUS DNR/DNI, overall prognosis poor, status critical, if patient's condition deteriorates, such as septic shock, worsening respiratory failure, worsening kidney function, family wants to proceed with comfort care, above all they do not want Adelaide to suffer, has morphine, Ativan as needed for agitation, and for pain Protonix for GI prophylaxis ? Lovenox for DVT prophylaxis currently contraindicated given GI bleed, SCDs Attestations 2 Medical Necessity Statement*: Patient requires hospitalization for acute encephalopathy, acute GI bleed, acute CHF, sepsis Diagnoses Acute hypoxemic respiratory failure J96.01 Multifocal pneumonia J18.9 Fecal occult blood test positive R19.5 Anemia D64.9 Acidosis, lactic E87.20 AGUSTÍN (acute kidney injury) N17.9 Hyponatremia E87.1 Acute GI bleeding K92.2 CHF exacerbation I50.9 Sepsis A41.9 Bilateral pleural effusion J90 Acute encephalopathy G93.40 NSTEMI (non-ST elevated myocardial infarction) I21.4
[2024-05-22] VITALS (16 sets, daily range): BP systolic 156–181; BP diastolic 71–94; PULSE 84–102; RESP 16–22; TEMP 36.3–37.1; O2SAT 88–94
[2024-05-22] MEDS: pantoprazole 40 mg SDV IVP ×2 (04:53→16:39)
[2024-05-22] MEDS: morphine 4 mg/mL SDV 1 mL 2 MG IVP ×4 (07:34→23:59)
[2024-05-22] MEDS: meropenem 500 mg SDV IVP ×2 (09:35→20:54)
[2024-05-22] MEDS: levothyroxine 100 mcg SDV 50 MCG IVP (09:45)
[2024-05-22 10:59] LABS: Basophils % 0.2 %; Eosinophils # 0.1 10^3/uL (0.0-0.8); Hematocrit 26.3 % (36-47); Lymphocytes # 0.5 10^3/uL (0.8-4.8); Mean Corpuscular HGB Conc 31.9 g/dL (30-55); Mean Corpuscular Volume 87.7 fl (85-98); Mean Platelet Volume 8.7 fL (7.4-10.4); Monocytes # 0.5 10^3/uL (0.2-0.9); Monocytes % 4.6 %; Neutrophils # 10.24 10^3/uL (1.8-7.7); Neutrophils % 88.8 %; Nucleated Red Blood Cells % 0 %; Platelet Count 403 10^3/cmm (157-399); Red Cell Distribution Width 16.5 % (12.1-15.1); White Blood Count 11.52 10^3/uL (3.29-11.43)
[2024-05-22 11:14] LABS: Lactate (Lactic Acid level) 1.4 mmol/L (0.5-2.2)
[2024-05-22 11:18] LABS: Alanine Aminotransferase 20 U/L (0-33); Albumin Level 3.8 g/dL (3.5-5.2); Alkaline Phosphatase 43 U/L (35-105); Anion Gap 19.9 (5-19); Aspartate Amino Transferase 29 U/L (0-32); Blood Urea Nitrogen 44 mg/dL (8-23); Calcium 8.2 mg/dL (8.5-10.5); Carbon Dioxide 22 mmol/L (22-29); Chloride 99 mmol/L (98-107); Creatinine Clr Calc Pharmacy 14.9945; Globulin 1.7 g/dL (1.3-4.6); Glucose 93 mg/dL (65-115); Osmolality Calculated 295 mOsm/kg (285-295); Potassium 3.9 mmol/L (3.5-5.1); Sodium 137 mmol/L (136-145); Total Bilirubin 1.1 mg/dL (0.15-1.2); Total Protein 5.5 g/dL (6.6-8.7)
[2024-05-22 11:41] LABS: Troponin T (5th) Once 383 ng/L (0-10)
[2024-05-22 12:35] LABS: INR 1.12 (0.8-1.2)
[2024-05-22 12:54] LABS: Procalcitonin 0.18 ng/mL (0-0.5)
[2024-05-22 13:21] LABS: NT Pro B Type Natriuretic Pept 56562 pg/mL (0-450)
--- NOTE | 2024-05-22 14:36 | P.PN_ITS ---
Subjective 2 Subjective: - Patient was seen this morning -Family members are at bedside -She is alert and oriented x 0, she does awaken at times, but does not follow commands, is normotensive, on nasal cannula, -Had a detailed discussion with patient' s family members, patient's family members are discussing whether to continue medical intervention versus pursuing full comfort care ? Discussed risk and benefits of each option -My concern for continued medical interv ention is prolonging her suffering, overall given her NSTEMI, GI bleed, fluid overload, sepsis, multifocal pneumonia when I see her in the near future is complications from further medical interventions, morbidity associated, suffering associated, recurrent hospitalizations, deconditioned state, my worry is the state that she is currently in will likely be how she is ? But certainly we can continue medical intervention give her a trial, as family members tell me that it was her desire to keep living, and they do not want to give up on her and she is fighting ? They want me to go ahead and proceed with morning labs ? Family member at bedside patient's granddaughter, the rest of the family numbers have gone home, discussed with granddaughter patient's creatinine 2.1 troponin of 383, BNP over 56,000, her white count up to 11.52 however hemoglobin stable at 8.4, creatinine is stable at 2.1, ? Patient's family members want me to wait they are going to have further discussions about either pursuing full comfort care versus continue medical interventions, Vitals/I&O/Wt Last Vital Signs Temp 98.0 F 05/22/24 12:00 Pulse 93 05/22/24 12:00 Resp 16 05/22/24 13:14 BP 169/89 05/22/24 12:00 Pulse Ox 90 05/22/24 13:14 O2 Del Method Nasal Cannula 05/22/24 11:55 O2 Flow Rate 4 05/22/24 04:00 Weight last 48 hrs Weight 52.299 kg Weight 55.157 kg Weight 49.668 kg Physical Exam 2 Const: COMMON NORMALS: no acute distress ORIENTATION/CONSCIOUSNESS: Yes awake and Yes confused; not oriented to person, not oriented to place and not oriented to time Resp: COMMON NORMALS: normal respiratory effort, No retractions and No use of accessory muscles AUSCULTATION: crackles and wheezes Cardio: COMMON NORMALS: regular rate, regular rhythm, S1 normal heart sound present and S2 normal heart sound present RATE: regular rate RHYTHM: r egular rhythm HEART SOUNDS: S1 normal heart sound present and S2 normal heart sound present GI: COMMON NORMALS: Normal to inspection, nondistended, normoactive bowel sounds present and non-tender Extremity: COMMON NORMALS: no pedal edema Neuro: SENSORIUM/ORIENTATION: No oriented to person, No oriented to place and No oriented to time Data 05/22/24 10:50 05/22/24 10:50 Micro: Microbiology 05/20/24 12:28 Urine Culture - Final Urine,Clean Catch 05/20/24 11:55 Blood Culture - Preliminary Blood NEGATIVE TO DATE 05/20/24 11:30 Blood Culture - Preliminary Blood NEGATIVE TO DATE A&P Assessment and plan (1) Acute hypoxemic respiratory failure: (2) Multifocal pneumonia: (3) Fecal occult blood test positive: (4) Anemia: (5) Acidosis, lactic: (6) AGUSTÍN (acute kidney injury): (7) Hyponatremia: (8) Acute GI bleeding: (9) CHF exacerbation: (10) Sepsis: (11) Bilateral pleural effusion: (12) Acute encephalopathy: (13) NSTEMI (non-ST elevated myocardial infarction): Plan Acute encephalopathy -With underlying Alzheimer's dementia -Secondary sepsis, GI bleed, pneumonia, UTI -Neurochecks -Keep n.p.o. Sepsis -Sepsis given lactic acidosis, metabolic acidosis, acute renal failure, source infection multifocal pneumonia Acute hypoxic respiratory failure -Multifactorial -Acute CHF exacerbation BNP over 70,000, -Bilateral pleural effusions -Bilateral multifocal pneumonia Plan -DO NOT INTUBATE -If patient's clinical condition deteriorates, patient's family does not want Adelaide to suffer, agrees to proceed with comfort care -Monitor respiratory status closely -Will hold off on Lasix given sepsis, AGUSTÍN -Vancomycin -Meropenem -DuoNeb as needed -Can consider heated high flow, high flow nasal cannula -I do not believe she will tolerate BiPAP and certainly can try Metabolic acidosis, lactic acidosis ? Secondary to above Acute GI bleed ? Hemoglobin 8.4, Hemoccult positive stool, patient is on Plavix ? Plan ? Protonix 40 IV twice daily ? Received1 unit PRBC ? Monitor for fluid overload ? Transfuse if hemoglobin less than 7 ? Monitor for worsening GI bleed ? Will check INR Acute CHF exacerbation, bilateral pleural effusions ? Receiving fluid, and blood in the ER -Creatinine is 21 ? Will consider Lasix therapy however patient is in sepsis from pneumonia as above ? Will monitor consider Lasix therapy based on clinical progress Hyponatremia, monitor Acute respiratory distress Acute deconditioned state, given patient's Alzheimer's dementia BMI 18, evidence of protein calorie malnutrition, physical deconditioning Secondary to Alzheimer's dementia NSTEMI, troponin 383, concern for underlying cardiac etiology, cannot anticoagulate or placed on antiplatelet therapy given GI bleed, CODE STATUS DNR/DNI, overall prognosis poor, status critical, if patient's condition deteriorates, such as septic shock, worsening respiratory failure, worsening kidney function, family wants to proceed with comfort care, above all they do not want Adelaide to suffer, has morphine, Ativan as needed for agitation, and for pain Protonix for GI prophylaxis ? Lovenox for DVT prophylaxis currently contraindicated given GI bleed, SCDs Attestations 2 Medical Necessity Statement*: I had extensive family meetings, for acute respiratory failure secondary pneumonia, NSTEMI, acute renal failure, bilateral pneumonia, acute anemia, GI bleed and High Time for a total of 55 minutes, includes reviewing past or interval history, examining/interviewing patient, placing orders, counseling patient/family/other support, updating patient/family/other support, discussing plan of care with staff, communicating with other healthcare providers, documenting encounter and coordinating care Diagnoses Acute hypoxemic respiratory failure J96.01 Multifocal pneumonia J18.9 Fecal occult blood test positive R19.5 Anemia D64.9 Acidosis, lactic E87.20 AGUSTÍN (acute kidney injury) N17.9 Hyponatremia E87.1 Acute GI bleeding K92.2 CHF exacerbation I50.9 Sepsis A41.9 Bilateral pleural effusion J90 Acute encephalopathy G93.40 NSTEMI (non-ST elevated myocardial infarction) I21.4
[2024-05-22] MEDS: FUROsemide 10 mg/mL SDV 4mL 40 MG IVP (15:36)
[2024-05-22] MEDS: vancomycin 750 MG in sodium chloride 0.9% 250 ML 250 MG IV (18:27)
[2024-05-23] VITALS (13 sets, daily range): BP systolic 166–193; BP diastolic 72–87; PULSE 92–101; RESP 12–19; TEMP 36.4–36.7; O2SAT 94–99
[2024-05-23] MEDS: LORazepam 2 mg/mL INJ 1 mL 0.5 MG IVP (00:56)
[2024-05-23] MEDS: morphine 4 mg/mL SDV 1 mL 2 MG IVP ×2 (05:02→09:14)
[2024-05-23] MEDS: pantoprazole 40 mg SDV IVP (05:03)
[2024-05-23 06:19] LABS: Basophils % 0.3 %; Eosinophils # 0.3 10^3/uL (0.0-0.8); Eosinophils % 2.4 %; Hematocrit 29.4 % (36-47); Lymphocytes # 0.5 10^3/uL (0.8-4.8); Mean Corpuscular HGB Conc 31.6 g/dL (30-55); Mean Corpuscular Hemoglobin 27.9 pg (27-33); Mean Corpuscular Volume 88.3 fl (85-98); Mean Platelet Volume 8.6 fL (7.4-10.4); Monocytes # 0.6 10^3/uL (0.2-0.9); Monocytes % 5.1 %; Neutrophils # 10.33 10^3/uL (1.8-7.7); Neutrophils % 87.2 %; Nucleated Red Blood Cells % 0 %; Platelet Count 390 10^3/cmm (157-399); Red Blood Count 3.33 10^6/uL (3.85-5.65); Red Cell Distribution Width 16.2 % (12.1-15.1); White Blood Count 11.85 10^3/uL (3.29-11.43)
[2024-05-23 06:36] LABS: Blood Urea Nitrogen 40 mg/dL (8-23); Calcium 8.3 mg/dL (8.5-10.5); Carbon Dioxide 26 mmol/L (22-29); Chloride 99 mmol/L (98-107); Creatinine Clr Calc Pharmacy 15.7032; Glucose 96 mg/dL (65-115); Osmolality Calculated 304 mOsm/kg (285-295); Sodium 142 mmol/L (136-145)
[2024-05-23 07:43] LABS: NT Pro B Type Natriuretic Pept > 70000 pg/mL (0-450)
[2024-05-23 09:04] LABS: Troponin T (5th) Once 313 ng/L (0-10)
--- NOTE | 2024-05-23 13:17 | PC.SLP ---
Pt placed on Comfort Care since DEPOT MANAGER orders entered. DEPOT MANAGER assessment will not be completed at this time.
--- NOTE | 2024-05-23 15:49 | P.PN_ITS ---
Subjective 2 Subjective: Patient was seen this morning, family members at bedside, she is alert oriented x 0, in mild to moderate respiratory distress, patient's daughter at bedside, I spoke to patient's daughter with her other daughter Ana María over the phone, we discussed goals of care, discussed options continue medical interventions versus comfort care, discussed her white count 11.85, hemoglobin 9.3, troponin over 300, creatinine 2, discussed all options, shared decision making with family, all questions answered. Discussing with them the risk and benefits of all options, they voiced understanding, all answered, wanted to proceed with comfort care, will proceed with comfort care, will have inpatient hospice, and see patient Vitals/I&O/Wt Last Vital Signs Temp 97.5 F L 05/23/24 11:36 Pulse 101 H 05/23/24 11:36 Resp 12 05/23/24 11:36 BP 166/85 05/23/24 11:36 Pulse Ox 94 05/23/24 11:36 O2 Del Method Nasal Cannula 05/23/24 11:36 O2 Flow Rate 4 05/22/24 19:56 Weight last 48 hrs Weight 52.163 kg Weight 52.299 kg Physical Exam 2 Const: COMMON NORMALS: no acute distress EXAM LIMITATIONS: altered mental status NUTRITIONAL APPEARANCE: cachectic ORIENTATION/CONSCIOUSNESS: Yes awake, Yes confused and Yes patient obtunded; not oriented to person, not oriented to place and not oriented to time Resp: EFFORT & INSPECTION: Yes abnormal respiratory pattern, Yes tachypneic, Yes respiratory distress and Yes retractions AUSCULTATION: crackles and wheezes Cardio: COMMON NORMALS: regular rhythm, S1 normal heart sound present and S2 normal heart sound present RATE: tachycardic RHYTHM: regular rhythm H EART SOUNDS: S1 normal heart sound present and S2 normal heart sound present GI: COMMON NORMALS: Normal to inspection, nondistended, normoactive bowel sounds present and non-tender Extremity: COMMON NORMALS: no pedal edema Neuro: SENSORIUM/ORIENTATION: No oriented to person, No oriented to place and No oriented to time Data 05/23/24 06:11 05/23/24 06:11 A&P Assessment and plan (1) Acute hypoxemic respiratory failure: (2) Multifocal pneumonia: (3) Fecal occult blood test positive: (4) Anemia: (5) Acidosis, lactic: (6) AGUSTÍN (acute kidney injury): (7) Hyponatremia: (8) Acute GI bleeding: (9) CHF exacerbation: (10) Sepsis: (11) Bilateral pleural effusion: (12) Acute encephalopathy: (13) NSTEMI (non-ST elevated myocardial infarction): (14) Need for comfort care: Plan Proceeding with comfort care Acute encephalopathy -With underlying Alzheimer's dementia -Secondary sepsis, GI bleed, pneumonia, UTI -Neurochecks -Keep n.p.o. Sepsis -Sepsis given lactic acidosis, metabolic acidosis, acute renal failure, source infection multifocal pneumonia Acute hypoxic respiratory failure -Multifactorial -Acute CHF exacerbation BNP over 70,000, -Bilateral pleural effusions -Bilateral multifocal pneumonia Plan -DO NOT INTUBATE -If patient's clinical condition deteriorates, patient's family does not want Adelaide to suffer, agrees to proceed with comfort care -Monitor respiratory status closely -Will hold off on Lasix given sepsis, AGUSTÍN -Vancomycin -Meropenem -DuoNeb as needed -Can consider heated high flow, high flow nasal cannula -I do not believe she will tolerate BiPAP and certainly can try Metabolic acidosis, lactic acidosis ? Secondary to above Acute GI bleed ? Hemoglobin 8.4, Hemoccult positive stool, patient is on Plavix ? Plan ? Protonix 40 IV twice daily ? Received1 unit PRBC ? Monitor for fluid overload ? Transfuse if hemoglobin less than 7 ? Monitor for worsening GI bleed ? Will check INR Acute CHF exacerbation, bilateral pleural effusions ? Receiving fluid, and blood in the ER -Creatinine is 21 ? Will consider Lasix therapy however patient is in sepsis from pneumonia as above ? Will monitor consider Lasix therapy based on clinical progress Hyponatremia, monitor Acute respiratory distress Acute deconditioned state, given patient's Alzheimer's dementia BMI 18, evidence of protein calorie malnutrition, physical deconditioning Secondary to Alzheimer's dementia NSTEMI, troponin 383, concern for underlying cardiac etiology, cannot anticoagulate or placed on antiplatelet therapy given GI bleed, CODE STATUS DNR/DNI, overall prognosis poor, status critical, if patient's condition deteriorates, such as septic shock, worsening respiratory failure, worsening kidney function, family wants to proceed with comfort care, above all they do not want Adelaide to suffer, has morphine, Ativan as needed for agitation, and for pain Protonix for GI prophylaxis ? Lovenox for DVT prophylaxis currently contraindicated given GI bleed, SCDs Attestations 2 Medical Necessity Statement*: Patient requires hospitalization for comfort care Diagnoses Acute hypoxemic respiratory failure J96.01 Multifocal pneumonia J18.9 Fecal occult blood test positive R19.5 Anemia D64.9 Acidosis, lactic E87.20 AGUSTÍN (acute kidney injury) N17.9 Hyponatremia E87.1 Acute GI bleeding K92.2 CHF exacerbation I50.9 Sepsis A41.9 Bilateral pleural effusion J90 Acute encephalopathy G93.40 NSTEMI (non-ST elevated myocardial infarction) I21.4 Need for comfort care
--- NOTE | 2024-05-23 19:34 | PC.NURSE ---
Patient changed to comfort care. Dc per Dr. Singh
[2024-05-24 07:15] VITALS: RESP 18
[2024-05-24] MEDS: morphine 4 mg/mL SDV 1 mL IVP (07:15)
[2024-05-24] MEDS: saline nasal spray (baby) 30mL Btl 1 SPRAY NASAL (12:20)
--- NOTE | 2024-05-24 14:08 | P.PN_ITS ---
Subjective 2 Subjective: Patient was seen this morning, family members at bedside alert oriented x 0, family members tell me that she did awaken during the night took a couple bites to eat, but her appetite is significantly reduced, she is less interactive, pain is well-controlled -Had a detailed discussion with the jayjay emmanuelle's family members, as patient is on comfort care, patient's daughter is seeing improvements, as she took a couple bites to eat, she was able to say a few words, they are wondering if they made her comfort care too soon, they are worried about giving up on her so soon as she keeps fighting -I had a detailed discussion with quinten alvarez's family that it is ultimately up to the -However I think that their decision is very reasonable, and there is a lot of humanity in the decision -Knowing was at his baseline level of fu nctioning that she has dementia, she has a reduced functionality at baseline -And now she was admitted with multifoca l pneumonia, bilateral pneumonia with acute hypoxic respiratory failure with NSTEMI troponins as high as 380s, with BNP over 70,000, with fluid overload, with a GI bleed, with acute anemia -Although she did show clinical improvem ent in her hemoglobin, and her BNP, and her respiratory status -She continues to be quite encephalopath ic -My concern is although she is showing s hort-term gains -Overall her prognosis remains poor, as she is going to suffer complications with recurrent aspiration with encephalopathy, recurrent aspiration pneumonias, recurrent fluid overload AGUSTÍN with diuresis, with her elevated troponins she is going to suffer from shortness of breath given her NSTEMI, suffer from chest pain, given that she is DNR/DNI she had a GI bleed, I do not believe any cherry cutter would be keen on putting her through any interventions given her diminished baseline level of functioning, so that would mean medical management but with her GI bleed aspirin Plavix would carry significant morbidity and mortality, so this would be difficult to manage, in terms of her CHF certainly Lasix would help but it would potentially worsen her kidney function given her creatinine of 2, and her sepsis, with her GI bleed she might require further blood transfusions, my concern is that her overall prognosis would be poor in the she would require more aggressive interventions which would result in more suffering, recurrent hospitalizations, prolonged hospitalizations, overall my concern to prolong suffering, with poor prognosis overall, diminished level of functioning -Had a detailed discussion with family t hat alternates their choice, I am here for them 4 hours show if they choose, they want to proceed and continue comfort care -Had a detailed family meeting with jayjay ent and daughters outside the room in the experimental machining lab manager, we discussed overall plans, they want to see how she does with comfort care here in the hospital for the next 48 hours, but they also want to consider hospice, they want to see if she can qualify for inpatient hospice, versus hospice at the [facility] Vitals/I&O/Wt Last Vital Signs Temp 97.5 F L 05/23/24 18:00 Pulse 101 H 05/23/24 18:00 Resp 18 05/24/24 07:15 BP 166/85 05/23/24 18:00 Pulse Ox 94 05/23/24 11:36 O2 Del Method Nasal Cannula 05/23/24 11:36 O2 Flow Rate 4 05/22/24 19:56 05/23/24 05/24/24 05/24/24 22:59 06:59 14:59 Output Total 1750 / 1750 200 / 1950 Balance -1750 / -1750 -200 / -1950 Weight last 48 hrs Weight 51.982 kg Weight 52.163 kg Physical Exam 2 Const: COMMON NORMALS: alert EXAM LIMITATIONS: altered mental status G ENERAL APPEARANCE: lethargic NUTRITIONAL APPEARANCE: thin O RIENTATION/CONSCIOUSNESS: Yes confused, Yes patient obtunded and Yes lethargic Resp: COMMON NORMALS: normal respiratory effort EFFORT & INSPECTION: Yes tachypneic, Yes respiratory distress and Yes labored AUSCULTATION: crackles and wheezes Cardio: COMMON NORMALS: regular rhythm, S1 normal heart sound present and S2 normal heart sound present RATE: tachycardic RHYTHM: regular rhythm H EART SOUNDS: S1 normal heart sound present and S2 normal heart sound present GI: COMMON NORMALS: Normal to inspection, nondistended, normoactive bowel sounds present, Soft to palpation and non-tender PALPATION: Yes Soft to palpation Extremity: COMMON NORMALS: no pedal edema Neuro: SENSORIUM/ORIENTATION: Yes alert and Yes lethargic Urinary Catheter Management: Feliciano: Cath Placed During This Visit: yes Reason for Continuing Indwelling Catheter: Hospice/Comfort/Palliative Care Urinary Catheter Date of Insertion: 05/23/24 Urinary Catheter Time of Insertion: 12:00 Data 05/23/24 06:11 05/23/24 06:11 A&P Assessment and plan (1) Acute hypoxemic respiratory failure: (2) Multifocal pneumonia: (3) Fecal occult blood test positive: (4) Anemia: (5) Acidosis, lactic: (6) AGUSTÍN (acute kidney injury): (7) Hyponatremia: (8) Acute GI bleeding: (9) CHF exacerbation: (10) Sepsis: (11) Bilateral pleural effusion: (12) Acute encephalopathy: (13) NSTEMI (non-ST elevated myocardial infarction): (14) Need for comfort care: Plan Proceeding with comfort care Acute encephalopathy -With underlying Alzheimer's dementia -Secondary sepsis, GI bleed, pneumonia, UTI -Neurochecks -Keep n.p.o. Sepsis -Sepsis given lactic acidosis, metabolic acidosis, acute renal failure, source infection multifocal pneumonia Acute hypoxic respiratory failure -Multifactorial -Acute CHF exacerbation BNP over 70,000, -Bilateral pleural effusions -Bilateral multifocal pneumonia Plan -DO NOT INTUBATE -If patient's clinical condition deteriorates, patient's family does not want Adelaide to suffer, agrees to proceed with comfort care -Monitor respiratory status closely -Will hold off on Lasix given sepsis, AGUSTÍN -Vancomycin -Meropenem -DuoNeb as needed -Can consider heated high flow, high flow nasal cannula -I do not believe she will tolerate BiPAP and certainly can try Metabolic acidosis, lactic acidosis ? Secondary to above Acute GI bleed ? Hemoglobin 8.4, Hemoccult positive stool, patient is on Plavix ? Plan ? Protonix 40 IV twice daily ? Received1 unit PRBC ? Monitor for fluid overload ? Transfuse if hemoglobin less than 7 ? Monitor for worsening GI bleed ? Will check INR Acute CHF exacerbation, bilateral pleural effusions ? Receiving fluid, and blood in the ER -Creatinine is 21 ? Will consider Lasix therapy however patient is in sepsis from pneumonia as above ? Will monitor consider Lasix therapy based on clinical progress Hyponatremia, monitor Acute respiratory distress Acute deconditioned state, given patient's Alzheimer's dementia BMI 18, evidence of protein calorie malnutrition, physical deconditioning Secondary to Alzheimer's dementia NSTEMI, troponin 383, concern for underlying cardiac etiology, cannot anticoagulate or placed on antiplatelet therapy given GI bleed, CODE STATUS DNR/DNI, overall prognosis poor, status critical, if patient's condition deteriorates, such as septic shock, worsening respiratory failure, worsening kidney function, family wants to proceed with comfort care, above all they do not want Adelaide to suffer, has morphine, Ativan as needed for agitation, and for pain Protonix for GI prophylaxis ? Lovenox for DVT prophylaxis currently contraindicated given GI bleed, SCDs Attestations 2 Medical Necessity Statement*: Currently patient is on comfort care Diagnoses Acute hypoxemic respiratory failure J96.01 Multifocal pneumonia J18.9 Fecal occult blood test positive R19.5 Anemia D64.9 Acidosis, lactic E87.20 AGUSTÍN (acute kidney injury) N17.9 Hyponatremia E87.1 Acute GI bleeding K92.2 CHF exacerbation I50.9 Sepsis A41.9 Bilateral pleural effusion J90 Acute encephalopathy G93.40 NSTEMI (non-ST elevated myocardial infarction) I21.4 Need for comfort care
[2024-05-24 20:00] VITALS: BP 150/70; PULSE 97; RESP 16; TEMP 36.9; O2SAT 97
[2024-05-25 03:48] VITALS: RESP 14
[2024-05-25] MEDS: morphine 4 mg/mL SDV 1 mL IVP ×2 (03:48→15:40)
[2024-05-25 04:37] VITALS: BP 170/76; PULSE 97; RESP 16; TEMP 37.1; O2SAT 97
[2024-05-25] MEDS: saline nasal spray (baby) 30mL Btl 1 SPRAY NASAL (07:47)
--- NOTE | 2024-05-25 11:25 | P.DS_ITS ---
Discharge Providers Date of Admission: 05/20/24 14:17 Date of Discharge: May 25, 2024 Attending Provider at Admission: Cassius Singh MD Attending Provider at Discharge: Cassius Singh MD Primary Care Provider: Real Ambriz DO Diagnoses at Discharge Discharge Diagnosis (1) Acute hypoxemic respiratory failure: Status: Acute (2) Multifocal pneumonia: Status: Acute (3) Fecal occult blood test positive: Status: Acute (4) Anemia: Status: Acute (5) Acidosis, lactic: Status: Acute (6) AGUSTÍN (acute kidney injury): Status: Acute (7) Hyponatremia: Status: Acute (8) Acute GI bleeding: Status: Acute (9) CHF exacerbation: Status: Acute (10) Sepsis: Status: Acute (11) Bilateral pleural effusion: Status: Acute (12) Acute encephalopathy: Status: Acute (13) NSTEMI (non-ST elevated myocardial infarction): Status: Acute (14) Need for comfort care: Status: Acute Reason for Visit Reason for Visit: SOB Hospital Course Hospital Course Adelaide Miller is a 89 year old female with a past medical history of dementia, hypothyroidism, 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 Currently patient is alert oriented x 0, does not follow commands, in mild respiratory distress, nasal flaring intercostal retractions, tachypnea on 4 L, blood pressure 147/77, pulse is 110, sinus rhythm, respiratory 22 temperature 98.3, patient's daughter is at bedside. According to patient's daughter, patient has a history of dementia, at baseline she cannot ambulate, she can at times feed herself, at times she can recognize family members at times she can carry out conversations. Recently she has had a slow decline, more rapidly over the last few days, she has had a few falls, less verbal. I had a detailed discussion with patient's daughter, patient appears to have multiorgan failure, including acute renal failure, with metabolic acidosis, with evidence of sepsis, secondary to bilateral pneumonia, subtotal collapse of bilateral lower lobes, with evidence of GI bleed Hemoccult positive stool requiring transfusion, with acute respiratory failure secondary to pneumonia, and fluid overload BNP over 70,000 evidence of bilateral pleural effusions. Currently patient status is critical, prognosis is poor. Hospitalist team was called for medical management. At a detailed discussion with patient's daughter about overall goals of care, patient daughter who is patient's next of kin, healthcare power of radio performer tells me that Adelaide would not want to have aggressive interventions. We had a discussion about CPR, she tells me was that I would not want that, she is a DNR. We discussed intubation, mechanical ventilation she tells me was that I would not want that she is a DNI. We also discussed her management, daughter is okay with antibiotics, blood transfusions, further noninvasive testing. We had a discussion about her sepsis, and her worsening respiratory failure, if her sepsis worsens if she starts developing septic shock, would she want us to admit her to the ICU, for pressors, central access. After discussing the risk and benefits, she voiced understanding, all questions answered, declined for now. In terms of worsening respiratory failure, she is okay with nasal cannula, okay with heated high flow, but given her current cognition I do not believe she would tolerate BiPAP. But certainly we could try, overall I was honest with patient's daughter I think her overall prognosis is poor, condition is critical. I can continue to try medical intervention but if her condition were to deteriorate she developed worsening respiratory failure, worsening urine output, worsening shock what we do at that point. Her daughter and then at that point would want her mother just to be comfortable, for us to ease her pain and ease her suffering and to proceed with comfort care. We had a detailed discussion about the risk and benefits of comfort care, she voiced understanding, all question answered, agreed to proceed with comfort care if her condition were to deteriorate. Above all she does not want Adelaide to suffer, she is okay with morphine, Ativan, and if she starts suffering she is okay with proceeding with full comfort care. Would like to be contacted if her condition were to deteriorate. Patient was admitted to [facility] for acute hypoxic respiratory f ailure, with metabolic acidosis with GI bleed with CHF exacerbation with bilateral pneumonia, with NSTEMI, bilateral pleural effusions, encephalopathy, UTI, DNR/DNI, with underlying Alzheimer's dementia. Initially patient was managed on medical management, family did not want aggressive interventions. After further extensive discussion with patient's family, goals of care discussion, patient's family wanted to proceed with comfort care, she was managed as comfort care here in the hospital for 48 hours, will be discharged to alf facility on hospice. Physical Exam Const: COMMON NORMALS: no acute distress EXAM LIMITATIONS: altered mental status ORIENTATION/CONSCIOUSNESS: Yes awake; not oriented to person, not oriented to place and not oriented to time Resp: COMMON NORMALS: normal respiratory effort, No retractions, No use of accessory muscles and clear to auscultation bilaterally AUSCULTATION: clear to auscultation bilaterally Cardio: COMMON NORMALS: regular rate, regular rhythm, S1 normal heart sound present and S2 normal heart sound present RATE: regular rate RHYTHM: regular rhythm HEART SOUNDS: S1 normal heart sound present and S2 normal heart sound present GI: COMMON NORMALS: Normal to inspection, nondistended, normoactive bowel sounds present and non-tender Extremity: COMMON NORMALS: no pedal edema Neuro: SENSORIUM/ORIENTATION: No oriented to person, No oriented to place and No oriented to time Urinary Catheter Management: [place]: Cath Placed During This Visit: yes Reason for Continuing Indwelling Catheter: Other Urinary Catheter Date of Insertion: 05/23/24 Urinary Catheter Time of Insertion: 12:00 Discharge Data Studies Completed and Pending Completed Studies During Hospitalization Category Date Time Status CT chest abdomen pelvis [[place] [id number] Cat Scan 05/20/24 12:57 Completed ] Stat XR chest 1V portable [id number] Stat Exams 05/20/24 10:50 Completed Pending at discharge Category Date Time Status Blood Culture Stat Lab 05/20/24 11:55 Results Radiology Impressions Chest X-Ray 05/20/24 10:50 IMPRESSION: 1. Gxdx-dulwdog-kndn-right perihilar airspace opacities. This can be seen with bronchiolitis, small airways disease, or infectious infiltrates. 2. Probable small bilateral pleural effusions. Chest/Abdomen/Pelvis CT 05/20/24 12:57 IMPRESSION: 1. Scattered consolidative opacities throughout the bilateral lungs, most consistent with multifocal pneumonia. 2. Large bilateral pleural effusions. 3. Subtotal collapse of the bilateral lower lobes. 4. Severe calcific disease of the thoracic aorta. IMPRESSION: 1. Large rectal stool burden. This is concerning for fecal impaction. 2. Mild/questionable rectal wall thickening with mild surrounding stranding may be incidental or can be seen with mild stercoral colitis. 3. Severe calcific atherosclerotic disease of the abdominal aorta and its major branches. Laboratory Results WBC 11.85 10^3/uL (3.29-11.43) H 05/23/24 06:11 RBC 3.33 10^6/uL (3.85-5.65) L 05/23/24 06:11 Hgb 9.30 g/dL (11.27-16.99) L 05/23/24 06:11 Hct 29.4 % (36-47) L 05/23/24 06:11 MCV 88.3 fl (85-98) 05/23/24 06:11 MCH 27.9 pg (27-33) 05/23/24 06:11 MCHC 31.6 g/dL (30-55) 05/23/24 06:11 RDW 16.2 % (12.1-15.1) H 05/23/24 06:11 Plt Count 390 10^3/cmm (157-399) 05/23/24 06:11 MPV 8.6 fL (7.4-10.4) 05/23/24 06:11 Neut % (Auto) 87.2 % 05/23/24 06:11 Lymph % (Auto) 4.0 % 05/23/24 06:11 [place] % (Auto) 5.1 % 05/23/24 06:11 Eos % (Auto) 2.4 % 05/23/24 06:11 Baso % (Auto) 0.3 % 05/23/24 06:11 Neut # (Auto) 10.33 10^3/uL (1.8-7.7) H 05/23/24 06:11 Lymph # (Auto) 0.5 10^3/uL (0.8-4.8) L 05/23/24 06:11 [place] # (Auto) 0.6 10^3/uL (0.2-0.9) 05/23/24 06:11 Eos # (Auto) 0.3 10^3/uL (0.0-0.8) 05/23/24 06:11 Baso # (Auto) 0.0 10^3/uL (0.0-0.1) 05/23/24 06:11 Nucleated RBC % (auto) 0 % 05/23/24 06:11 Nucleated RBCs # 0.0 /100WBC 05/23/24 06:11 PT 14.80 SECONDS (12.1-14.9) 05/22/24 10:50 INR 1.12 (0.8-1.2) 05/22/24 10:50 Specimen Type Arterial 05/20/24 15:27 Sample Site Radial, left 05/20/24 15:27 ABG pH 7.51 (7.35-7.45) H 05/20/24 15:27 ABG pCO2 29.0 mmHg (35-45) L 05/20/24 15:27 ABG pO2 58.3 mmHg (80.0-100.0) L 05/20/24 15:27 ABG PO2/FiO2 Ratio 161 05/20/24 15:27 ABG HCO3 23.3 mmol/L (22-26) 05/20/24 15:27 ABG Base Excess 0.4 mmol/L (-2.0-2.0) 05/20/24 15:27 Geoff Test Pos 05/20/24 15:27 Hematocrit 19.0 % (37-47) L 05/20/24 15:27 O2 Delivery Device Nc 05/20/24 15:27 O2 Liters/Min 4.0 % 05/20/24 15:27 FiO2 36.0 % 05/20/24 15:27 Hot Strip Finisher ID [id number] 05/20/24 15:27 Sodium 142 mmol/L (136-145) 05/23/24 06:11 Potassium 3.0 mmol/L (3.5-5.1) L 05/23/24 06:11 Chloride 99 mmol/L (98-107) 05/23/24 06:11 Carbon Dioxide 26 mmol/L (22-29) 05/23/24 06:11 Anion Gap 20.0 (5-19) H 05/23/24 06:11 BUN 40 mg/dL (8-23) H 05/23/24 06:11 Creatinine 2.0 mg/dL (0.5-0.9) H 05/23/24 06:11 GFR Calculation Not Reportable 05/23/24 06:11 Glucose 96 mg/dL (65-115) 05/23/24 06:11 Estimat Average Glucose 71 05/20/24 11:55 Hemoglobin A1c 4.1 % (4.0-6.0) 05/20/24 11:55 Calculated Osmolality 304 mOsm/kg (285-295) H 05/23/24 06:11 Lactic Acid 4.1 mmol/L (0.5-2.2) H* 05/20/24 11:55 Lactic Acid (Sepsis) 3.5 mmol/L (0.5-2.2) H 05/20/24 13:57 Lactate 1.4 mmol/L (0.5-2.2) 05/22/24 10:50 Calcium 8.3 mg/dL (8.5-10.5) L 05/23/24 06:11 Total Bilirubin 1.1 mg/dL (0.15-1.2) 05/22/24 10:50 AST 29 U/L (0-32) 05/22/24 10:50 ALT 20 U/L (0-33) 05/22/24 10:50 Alkaline Phosphatase 43 U/L (35-105) 05/22/24 10:50 Troponin T 5th Gen ng/L 313 ng/L (0-10) H* 05/23/24 06:11 Troponin T Baseline 484 ng/L (0-10) H* 05/20/24 15:58 Troponin T 120 Minute 465.1 ng/L (0-10) H 05/20/24 18:05 Delta Troponin T -18.9 ABS# (0-10) L 05/20/24 18:05 Troponin T Hi Sens 6Hr 473.1 ng/L (0-10) H 05/20/24 22:29 Troponin T Hi Sens 6Hr Delta -10.9 ng/L (0-12) L 05/20/24 22:29 C-Reactive Protein 3.0 mg/L (0.0-4.9) 05/22/24 10:50 NT-Pro-B Natriuret Pep > 48464 pg/mL (0-450) H 05/23/24 06:11 Total Protein 5.5 g/dL (6.6-8.7) L 05/22/24 10:50 Albumin 3.8 g/dL (3.5-5.2) 05/22/24 10:50 Globulin 1.7 g/dL (1.3-4.6) 05/22/24 10:50 Procalcitonin 0.18 ng/mL (0-0.5) 05/22/24 10:50 TSH 29.17 uIU/mL (0.27-4.20) H 05/20/24 11:55 Urine Color Yellow (Yellow) 05/20/24 12:28 Urine Appearance Clear (CLEAR) 05/20/24 12:28 Urine pH 5 (5-7) 05/20/24 12:28 Ur Specific [place] 1.020 (1.005-1.030) 05/20/24 12:28 Urine Protein 2+ (Negative) H 05/20/24 12:28 Urine Glucose (UA) Norm (Normal) 05/20/24 12:28 Urine Ketones Negative (Negative) 05/20/24 12:28 Urine Blood 2+ (Negative) H 05/20/24 12:28 Urine Nitrate Negative (Negative) 05/20/24 12:28 Urine Bilirubin Neg (Negative) 05/20/24 12:28 Urine Urobilinogen Norm mg/dL (Negative) 05/20/24 12:28 Ur Leukocyte Esterase 2+ (Negative) H 05/20/24 12:28 Urine RBC 0-4 /hpf (0-2) H 05/20/24 12:28 Urine WBC 15-25 /hpf (0-5) H 05/20/24 12:28 Ur Squamous Epith Cells 0-4 /hpf (0-5) H 05/20/24 12:28 Amorphous Sediment Not Reportable 05/20/24 12:28 Urine Bacteria 1+ /hpf (NONE) H 05/20/24 12:28 SARS-CoV-2 Ag (Rapid) negative (Negative) 05/20/24 11:52 Blood Type A Positive 05/20/24 13:10 Rho(D) Type Rh positive 05/20/24 13:10 Antibody Screen Negative 05/20/24 13:10 Crossmatch See Detail 05/20/24 13:10 Vitals Last Vital Signs Temp 98.7 F 05/25/24 04:37 Pulse 97 05/25/24 04:37 Resp 16 05/25/24 04:37 BP 170/76 05/25/24 04:37 Pulse Ox 97 05/25/24 04:37 O2 Del Method Nasal Cannula 05/25/24 04:37 O2 Flow Rate 4 05/22/24 19:56 Discharge Plan Discharge Patient Disposition: Hospice - Medical Facility Condition: Stable Prescriptions: Discontinued magnesium hydroxide [Milk of Magnesia] 400 mg/5 mL Suspension 30 ml PO DAILY PRN (Reason: Constipation) bisacodyl 10 mg Suppository 10 mg [place] DAILY PRN (Reason: Constipation) Enema Disposable 19-7 gram/118 mL Enema 118 ml [place] DAILY PRN (Reason: Constipation) diclofenac sodium 1 % gel See Rx Instructions .ROUTE .COMPLEX Rx Instructions: apply to right knee topically two times a day acetaminophen 500 mg Tablet 500 mg PO Q4H PRN (Reason: Pain) Qty: 20 0RF ondansetron HCl 4 mg Tablet 4 mg PO Q6H PRN (Reason: Nausea And Vomiting) [place] Opthalmic 1 drp eye-both DAILY PRN (Reason: Irritation) levothyroxine 75 mcg Tablet 75 mcg PO DAILY 60 Days Qty: 60 0RF Plavix 75 mg Tablet 75 mg PO DAILY Aspir-81 81 mg Tablet,Delayed Release (Dr/Ec) 81 mg PO DAILY Discharge Orders: Discharge Order (Routine); Ordered 05/25/24 Ordered By: Cassius Singh Referrals: Real Ambriz DO [Primary Care Provider] - Discharge Diet: Regular Discharge Activity: Resume usual activity Patient Instructions: Opioid Safety Discharge Attestations Time Spent in Discharge Care*: greater than 30 min Quality Metrics Clinical Quality Measures [ No reported AMI, CVA or VTE this stay] Coding Level of Care Code 00558 Total time (in minutes) for Discharge: 45 Diagnoses Acute hypoxemic respiratory failure J96.01 Multifocal pneumonia J18.9 Fecal occult blood test positive R19.5 Anemia D64.9 Acidosis, lactic E87.20 AGUSTÍN (acute kidney injury) N17.9 Hyponatremia E87.1 Acute GI bleeding K92.2 CHF exacerbation I50.9 Sepsis A41.9 Bilateral pleural effusion J90 Acute encephalopathy G93.40 NSTEMI (non-ST elevated myocardial infarction) I21.4 Need for comfort care
[2024-05-25 15:40] VITALS: RESP 18
[2024-05-25 16:00] VITALS: RESP 18
== END 2024-05-25 16:02 | disposition hospice, inpatient (51) | DRG 871 ==
LOC: ER 14:46 → MEDSURG 17:01
PROVIDERS: Admitting Provider Family Medicine; Emergency Provider Emergency Medicine; PCP Internal Medicine; Visit Provider Family Medicine
DX: A41.9 Sepsis, unspecified organism (principal); I21.4 Non-ST elevation (NSTEMI) myocardial infarction; J18.9 Pneumonia, unspecified organism; J96.01 Acute respiratory failure with hypoxia; K92.2 Gastrointestinal hemorrhage, unspecified; E87.20 Acidosis, unspecified; E87.29 Other acidosis; N17.9 Acute kidney failure, unspecified; E87.1 Hypo-osmolality and hyponatremia; G93.40 Encephalopathy, unspecified; N39.0 Urinary tract infection, site not specified; Z68.1 Body mass index [BMI] 19.9 or less, adult; E46 Unspecified protein-calorie malnutrition; D64.9 Anemia, unspecified; I50.9 Heart failure, unspecified; Z51.5 Encounter for palliative care; E03.9 Hypothyroidism, unspecified; I11.0 Hypertensive heart disease with heart failure; Z79.02 Long term (current) use of antithrombotics/antiplatelets; Z66 Do not resuscitate; R53.81 Other malaise; G30.9 Alzheimer's disease, unspecified; F02.80 Dementia in other diseases classified elsewhere, unspecified severity, without behavioral disturbance, psychotic disturbance, mood disturbance, and anxiety; R29.6 Repeated falls; I25.2 Old myocardial infarction
CPT/HCPCS: 36415; 36430; 36600; 51701; 51702; 71045; 71250; 74176; 80048; 80053; 81001; 82274; 82803; 83036; 83605; 83880; 84145; 84443; 84484; 85025; 85610; 86140; 86850; 86900; 86920; 87040; 87086; 87426; 93005; 94664; 96365; 96375; 99285; C9113; J0692; J1940; J2060; J2185; J2270; J3370; J3490; J7040; J7050; P9016